=== PATIENT | female | born 1940 | race Caucasian/White ===

== ENCOUNTER 2020-03-15 13:07 | Inpatient (IN) | payer OTHER ==
--- OUTSIDE RECORDS SUMMARY | 2020-03-15 13:09 | XMS REPORT | Clinical Summary ---
:1940 Author Organization [facility] Address [address] [place] [address] Care Team Providers Name Role Phone Ivette Arreaga MD Primary Care Provider Allergies Active Allergy Reactions Severity Noted Date Comments Sulfasalazine 06/14/2011 Medications Medication Sig Dispensed Refills Start End Status Date Date ARMOUR THYROID 90 mg 0 Active tablet 016 NORVASC 2.5 mg tablet 0 Active 016 ezetimibe (ZETIA) 10 mg Zetia 10 mg 0 Active tablet tablet triamcinolone (KENALOG) triamcinolone 0 Active 0.1 % ointment acetonide 0.1 % topical ointment RESTASIS 0.05 % 0 Acti ve ophthalmic emulsion 016 aspirin (ECOTRIN) 325 MG Take 325 mg by 0 Active enteric coated tablet mouth daily. cranberry conc-ascorbic Take by mouth. 0 Active acid 4,200-20 mg capsule zinc 15 mg tablet Take 25 mg by 0 Active mouth. carboxymethylcellulose Apply to eye. 0 Active sodium (REFRESH OPHT) OTEZLA 30 mg TAKE 1 TABLET 90 tablet 0 Act pablo tabletIndications: BY MOUTH ONCE 020 Psoriatic arthritis (HCC) DAILY. meloxicam (MOBIC) 7.5 mg Take 7.5 mg by 1 Active tablet mouth daily. 019 estradiol (ESTRACE) 0.01 Estrace 0.01% 0 0 20/ Discontinued % (0.1 mg/gram) vaginal (0.1 mg/gram) 20 20 (Therapy cream vaginal cream comple chely) hydroxychloroquine TAKE 1 TABLET 90 tablet 1 11/27/2 05/30/ Discontinued (PLAQUENIL) 200 mg tablet DAILY 019 2019 (Reorder) OTEZLA 30 mg Take 30 mg by 90 tablet 1 2 continued tabletIndications: mouth daily. 2018 (Reorder) Psoriatic arthritis (HCC) hydroxychloroquine TAKE 1 TABLET 90 tablet 1 2 08/28/ (PLAQUENIL) 200 mg tablet DAILY 2018 OTEZLA 30 mg TAKE 1 TABLET 90 tablet 0 continued tabletIndications: BY MOUTH ONCE 2019 Psoriatic arthritis (HCC) DAILY. ([place]) OTEZLA 30 mg TAKE 1 TABLET 90 tablet 0 2 Dis continued tabletIndications: BY MOUTH ONCE 2019 Psoriatic arthritis (HCC) DAILY. hydroxychloroquine TAKE 1 TABLET 90 tablet 1 02/12/ (PLAQUENIL) 200 mg tablet DAILY 2019 Active Problems Problem Noted Date Thoracic aortic aneurysm without rupture 08/07/2019 Mixed hyperlipidemia 10/09/2018 Essential hypertension 10/09/2018 Aortic root dilatation 08/15/2018 Aortic valve disease 08/09/2017 Psoriatic arthritis 10/12/2016 Encounter for long-term (current) use of high-risk med ication 10/12/2016 Intradermal nevus 06/19/2014 Senile nevus of skin 06/13/2013 Seborrheic keratosis 06/13/2013 Basal cell carcinoma of face 10/17/2012 Ascending aortic aneurysm Overview: 4.6 x [address] 12/28/13 Primary Sjogren's syndrome Hypothyroid Encounters Date Type Specialty Care Team Description 11/15/2019 Refill Rheumatology Cameron Bui MD 10/25/2019 Office Visit Rheumatology Cameron Bui MD Psoria tic arthritis ([facility]) (Primary Dx); Encounter for l sherry-term (current) use of high-risk medication 10/02/2019 Refill Rheumatology Cameron Bui MD Psoria tic arthritis ([facility]) 10/02/2019 Refill Rheumatology Cameron Bui MD Psoria tic arthritis ([facility]) 08/07/2019 Office Visit Cardiology Ernestina Escudero MD [facility] (Primary Dx); Thoracic aortic aneurysm without rupture (HCC) 07/16/2019 Refill Rheumatology Cameron Bui MD Psoria tic arthritis ([facility]) 05/30/2019 Refill Rheumatology Cameron Bui MD after 03/15/2019 Family History Medical History Relation Name Comments Aortic dissection Father abdominal aort a Other Mother Choked Osteoarthritis Sister Relation Name Status Comments Father Mother Sister Alive Social History Tobacco Use Types Packs/Day Years Used Date Never Smoker Smokeless Tobacco: Never Used Alcohol Use Drinks/Week oz/Week Comments Yes Occasional Sex Assigned at Date Recorded Not on file Job Start Date Occupation Industry Not on file Not on file Not on file Travel History Travel Start Travel End No recent travel history available. Last Filed Vital Signs Vital Sign Reading Time Taken Comments Blood Pressure 153/83 10/25/2019 1:40 PM [employer] Pulse 81 10/25/2019 1:40 PM [employer] Temperature 37.1 C (98.7 F) 10/25/2019 1:40 PM [employer] Respiratory Rate 18 10/25/2019 1:40 PM [employer] Oxygen Saturation 97% 10/25/2019 1:40 PM [employer] Inhaled Oxygen Concentration - - Weight 59 kg (130 lb) 10/25/2019 1:40 PM [employer] Height 162.6 cm (5' 4") 10/25/2019 1:40 PM [employer] Body Mass Index 22.31 10/25/2019 1:40 PM [employer] Plan of Treatment Date Type Specialty Care Team Description 08/05/2020 Office Visit Cardiology Ernestina Escudero MD [address] [address] [phone] Health Maintenance Due Date Last Done Comments SHINGLES VACCINES (#1) 1988 65+ PNEUMOCOCCAL VACCINE (1 of 2 - PCV13) 2003 INFLUENZA VACCINE 04/05/2020 Procedures Procedure Name Priority Date/Time Associated Diagnosis Comme nts TTE COMPLETE, WO Routine 08/06/2019 12:55 PM Essential Resu lts for this CONTRAST, W DOPPLER [employer] hypertension procedure are in (26227) Aortic root the results dilatation (HCC) section. after 03/15/2019 Results Echocardiogram complete w contrast and 3D if needed (08/06/2019 12:55 PM [employer]) Specimen Narrative Performed At [facility] Echo cardiography Report Pat.Name: GRECIA DONNELLY Pat.ID: [id number] .Date: 08/06/2019 Refer.MD: ERNESTINA ESCUDERO MD Exam Time: 12:10:00 PM Study Type:Ro utine Echo Height: 65in Weight: 141lb BSA: 1.71 m2 Ag e: 1940,79Y Sex: FEMALE BP: 149/70 HR: 62 bpm Sonogrphr: LEOBARDO Knott FASE Pat. Stat.:Outpatient Room: [place] Study Status:Final Echo Event ID:[id number] Order ID: [id number] Reason for Study:Aortic root dilatation History / Clinical:Thor. Aneurysum, no m kip rup. Procedures: 2D Echo, Colorflow Doppler, Strain Race: C SUMMARY: LV EF is normal.Estimated EF is 60-64%. RV systolic function is normal. Aortic root diameter is mildly enlarged (3.8 cm at sinus of Valsalva); (Prior TTE dated 08/09/17-3.7 cm). Ascending aorta diameter is mildly enlar ged (4.1 cm). Mild aortic regurgitation. Diastolic dysfunction Grade I (Mild): Im paired relaxation with normal LV filling pressures. No significant change when compared to p rior TTE dated 08/09/17. FINDINGS: LV: LV size is normal. LV EF is normal. Overall wall motion is normal. Estimated EF is 60-64%. RV: RV size is normal. RV systo lic function is normal. LA: LA size is normal. RA: RA size is normal. AO: Aortic root diameter is mil dly enlarged (3.8 cm at sinus of Valsalva). Ascending aorta diameter i s mildly enlarged (4.1 cm). DOMINIQUE: No pericardial effusion. AV: Mild thickening of AV leafl ets. Mild aortic regurgitation. MV: Mild thickening of mitral l eaflets. A trace of mitral regurgitation. PV: No structural PV abnormalit ies noted. A trace of pulmonic regurgitation. TV: No structural TV abnormalit ies noted. Mild tricuspid regurgitation Murillo: Diastolic dysfunction Grade I (Mild): Impaired relaxation with normal LV filling pressures. Other: Estimated PA systolic pressu re is appx 26 mmHg, assuming a mean RAP of 5 mmHg. MEASUREMENTS: 2D Parasternal [place] Ao An 1.7 cm LVPWd 0.9 cm IVSd 1 cm LA Ds 3 cm LVIDd 4.1 cm Index 2.4 cm/m2 RWT 0.5 LVIDs 2.4 cm LV Mas s 124.3 g (87-129) LV%fs 41.5 % LVM Ind ex 72.7 g/m LA Sng Plane LA Area 16.9 cm (8.8-23.4) LA Vol 44.5 ml Index 26 ml/m2 LA LngAx 5.5 cm RA Sng Plane RA Vol 31.4 ml Index 18.4 ml/m2 RA LngAx 5.7 cm RA Area 15 cm (8.3-1 9.5) Aorta Ao Rtd 3.8 cm (1.7-3. 4) Ao Asc 4.1 cm (2.1-3. 4) LVOT Stroke Vol LVOT 1.6 cm LVOT LVOT Area 2 cm DOPPLER AV Pressure Half Time AV P1/2t 553 msec LVOT Stroke Vol LVOT TVI 29.5 cm LVOT CI 2.5 l/m/m LVOT SV 59.2 ml HR 71 bpm LVOT CO 4.2 l/min LVOT SVi 34.6 ml/m Signed 08/07/2019 11:51 AM Taylor Ambrosio MD Procedure Note Interface, Radiology Results In - 2018 11:51 AM [employer] [facility] Echocardiography Report Pat.Name: GRECIA DONNELLY Pat.I D: [id number] .Date: 08/06/2019 Refer .MD: ERNESTINA ESCUDERO MD Exam Time: 12:10:00 PM Study Type:Routine Echo Height: 65in Weigh t: 141lb BSA: 1.71 m2 Age: 9 1940,79Y Sex: FEMALE BP: 149/70 HR: 62 bpm Sonogrphr: LEOBARDO Knott FASE Pat. Stat.:Outpatient Room: [place] Study Status:Final Echo Event ID:[id number] Order ID: [id number] Reason for Study:Aortic root dilatation History / Clinical:Thor. Aneurysum, no jasmina shin ruhakan. Procedures: 2D Echo, Colorflow Doppler, Strain Race: C SUMMARY: LV EF is normal.Estimated EF is 60-64%. RV systolic function is normal. Aortic root diameter is mildly enlarged (3.8 cm at sinus of Valsalva); (Prior TTE dated 08/09/17-3.7 cm). Ascending aorta diameter is mildly enlar ged (4.1 cm). Mild aortic regurgitation. Diastolic dysfunction Grade I (Mild): Im paired relaxation with normal LV filling pressures. No significant change when compared to p rior TTE dated 08/09/17. FINDINGS: LV: LV size is normal. LV EF is no rmal. Overall wall motion is normal. Estimated EF is 60-64 %. RV: RV size is normal. RV systolic function is normal. LA: LA size is normal. RA: RA size is normal. AO: Aortic root diameter is mildly enlarged (3.8 cm at sinus of Valsalva). Ascending aorta di ameter is mildly enlarged (4.1 cm). DOMINIQUE: No pericardial effusion. AV: Mild thickening of AV leaflets . Mild aortic regurgitation. MV: Mild thickening of mitral leaf lets. A trace of mitral regurgitation. PV: No structural PV abnormalities noted. A trace of pulmonic regurgitation. TV: No structural TV abnormalities noted. Mild tricuspid regurgitation Murillo: Diastolic dysfunction Grade I (Mild): Impaired relaxation with normal LV filling pressu res. Other: Estimated PA systolic pressure is appx 26 mmHg, assuming a mean RAP of 5 mmHg. MEASUREMENTS: 2D Parasternal [place] Ao An 1.7 cm LVPW d 0.9 cm IVSd 1 cm LA D s 3 cm LVIDd 4.1 cm Inde x 2.4 cm/m2 RWT 0.5 LVIDs 2.4 cm LV M ass 124.3 g (87-129) LV%fs 41.5 % LVM Index 72.7 g/m LA Sng Plane LA Area 16.9 cm (8.8-23.4) L A Vol 44.5 ml Index 26 ml/m2 LA LngAx 5.5 cm RA Sng Plane RA Vol 31.4 ml Inde x 18.4 ml/m2 RA LngAx 5.7 cm RA Area 15 cm (8.3-19.5) Aorta Ao Rtd 3.8 cm (1.7-3.4) Ao Asc 4.1 cm (2.1-3.4) LVOT Stroke Vol LVOT 1.6 cm LVOT LVOT Area 2 cm DOPPLER AV Pressure Half Time AV P1/2t 553 msec LVOT Stroke Vol LVOT TVI 29.5 cm LVOT CI 2.5 l/m/m LVOT SV 59.2 ml HR 71 bpm LVOT CO 4.2 l/min LVOT SVi 34.6 ml/m Signed 08/07/2019 11:51 AM Taylor Ambrosio MD Performing Organization Address City/State/Zipcode Phone Number [facility] [id number] [place] [address] after 03/15/2019 Insurance Payer Benefit Plan / Subscriber ID Effective Dates Phone Addre ss Type Group HUMANA MEDICARE HUMANA MEDICARE xxxxxxxxx 2017-Present PPO PPO/PFFS/ERS MCR Advance Directives For more information, please contact: [phone] Type Date Recorded 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
[2020-03-15] MEDS ORDERED: NA CHLORIDE 0.9% 500 ML ONE (13:33)
[2020-03-15] MEDS ORDERED: MORPHINE 4 MG/ML SYR ONE ×2 (13:33→16:39)
[2020-03-15 13:41] LABS: Absolute Lymphocytes (CBC) 1.1 K/uL (0.7-4.9); Basophils % 0.4 % (0-1.3); Hematocrit 44.8 % (36.0-45.0); Lymphocytes % 8.9 % (15.3-44.8); MPV 8.7 fL (7.6-11.3); RBC Red Blood Cell Count 4.89 M/uL (3.86-4.86)
[2020-03-15 13:58] LABS: Bilirubin Direct 0.2 mg/dL (0-0.2); Bilirubin Total 1.1 mg/dL (0.2-1.0); Potassium 3.3 mmol/L (3.5-5.1); Protein, Total 7.4 g/dL (6.4-8.2)
--- NOTE | 2020-03-15 15:20 | RAD REPORT ---
EXAM DESCRIPTION: CT - Abdomen Pelvis W Contrast - 03/15/2020 2:42 pm CLINICAL HISTORY: ABD PAIN COMPARISON: Angio Aorta For Dissection dated 05/27/2017 TECHNIQUE: Biphasic, helical CT imaging of the abdomen and pelvis was performed following 100 ml non -ionic IV contrast. No oral contrast. All CT scans are performed using dose optimization technique as appropriate and may include automated exposure control or mA/KV adjustment according to patient size. FINDINGS: No suspicious findings in the lung bases. The liver, spleen, and pancreas show no suspicious findings. Gallbladder and biliary tree are also wi thout suspicious finding. Symmetric renal function is seen with no hydronephrosis or suspicious renal mass. No pyelonephritis o r acute parenchymal process. No bladder abnormalities. No adrenal abnormalities. Fluid filled, nondilated stomach seen. Dolan of the antrum are mildly thickened and edematous. This c an be antritis. Peristalsis of the antrum can mimic this antritis pattern. No duodenum abnormality s een. Proximal jejunum is normal. Patient has a dilated small bowel pattern seen in 2 components. Mult iple bowel loops are seen in the mid to lower left abdomen appearing to herniate through left-sided c olon mesentery. This closed-loop obstruction pattern creates multiple bowel loops in the lateral left mid abdomen with mild wall thickening or edema. A second area of dilated small bowel in the right lo wer quadrant is present. Etiology for this obstruction is uncertain. This could be adhesions or inter nal hernia. Distal ileum is decompressed. Mild to moderate stool volume seen in the right-side of the colon. Left-side of the colon is mostly decompressed. There is prominent sigmoid diverticulosis. Small amount of free intraperitoneal fluid is present. No pneumatosis or free air. No colon or small bowel focal mass lesions seen. No omental thickening or abnormal lymphadenopathy. No hernia, mass or bulky lymphadenopathy. Disc and bony degenerative changes are present. IMPRESSION: Small bowel obstruction pattern is evident with no free air, abscess or pneumatosis. Small bowel obstruction is seen in 2 components. There are several loops of small bowel that appear t o extend through mesenteric defect of the left-side of the colon creating a closed loop obstruction. The second more distal small bowel obstruction pattern is seen in the right lower quadrant with etiol ogy less certain. This could be from adhesions or from internal hernia. Dolan of the antrum are mildly prominent. This could be antritis or peristalsis artifact. Small quantity of ascites.
--- NOTE | 2020-03-15 16:08 | EDPHYS ---
Physician Documentation [facility] Name: Grecia Donnelly Age: 79 yrs Sex: Female : 1940 Arrival Date: 03/15/2020 Time: 13:11 Bed 8 Private MD: ED Physician Jhoan Rogers HPI: 03/15 14:58 This 79 yrs old Female presents to ER via EMS with complaints of Abdominal jr8 Pain. 14:58 The patient presents with abdominal pain in the lower abdomen. Onset: The jr8 symptoms/episode began/occurred acutely, today. The symptoms do not radiate. Associated signs and symptoms: Pertinent positives: nausea and vomiting, Pertinent negatives: diarrhea. The symptoms are described as sharp. Modifying factors: The symptoms are alleviated by nothing, the symptoms are aggravated by movement. Severity of pain: At its worst the pain was moderate in the emergency department the pain is unchanged. The patient has not experienced similar symptoms in the past. The patient has not recently seen a physician. Historical: - Allergies: 13:15 Sulfa (Sulfonamide Antibiotics); bp - PMHx: 13:15 Sjogren's Syndrome; Hypertension; ascending aortic aneurysm; Thyroid problem; High bp Cholesterol; - PSHx: 13:15 Heart stents; Hysterectomy; Thyroidectomy; bp - Immunization history:: Adult Immunizations up to date. - Social history:: Smoking status: Patient denies any tobacco usage or history of. ROS: 14:58 Eyes: Negative for injury, pain, redness, and discharge, ENT: Negative for injury, jr8 pain, and discharge, Neck: Negative for injury, pain, and swelling, Cardiovascular: Negative for chest pain, palpitations, and edema, Respiratory: Negative for shortness of breath, cough, wheezing, and pleuritic chest pain, Back: Negative for injury and pain, MS/Extremity: Negative for injury and deformity, Skin: Negative for injury, rash, and discoloration, Neuro: Negative for headache, weakness, numbness, tingling, and seizure. 14:58 Abdomen/GI: Positive for abdominal pain, nausea and vomiting, Negative for diarrhea, constipation, abdominal cramps, abdominal distension, anorexia, dysphagia, hematemesis, black/tarry stool, rectal pain, rectal bleeding, bowel incontinence, flatulence. Exam: 14:58 Eyes: Pupils equal round and reactive to light, extra-ocular motions intact. Lids and jr8 lashes normal. Conjunctiva and sclera are non-icteric and not injected. Cornea within normal limits. Periorbital areas with no swelling, redness, or edema. ENT: Nares patent. No nasal discharge, no septal abnormalities noted. Tympanic membranes are normal and external auditory canals are clear. Oropharynx with no redness, swelling, or masses, exudates, or evidence of obstruction, uvula midline. Mucous membranes moist. Neck: Trachea midline, no thyromegaly or masses palpated, and no cervical lymphadenopathy. Supple, full range of motion without nuchal rigidity, or vertebral point tenderness. No Meningismus. Cardiovascular: Regular rate and rhythm with a normal S1 and S2. No gallops, murmurs, or rubs. Normal PMI, no JVD. No pulse deficits. Respiratory: Lungs have equal breath sounds bilaterally, clear to auscultation and percussion. No rales, rhonchi or wheezes noted. No increased work of breathing, no retractions or nasal flaring. Back: No spinal tenderness. No costovertebral tenderness. Full range of motion. Skin: Warm, dry with normal turgor. Normal color with no rashes, no lesions, and no evidence of cellulitis. MS/ Extremity: Pulses equal, no cyanosis. Neurovascular intact. Full, normal range of motion. Neuro: Awake and alert, GCS 15, oriented to person, place, time, and situation. Cranial nerves II-XII grossly intact. Motor strength 5/5 in all extremities. Sensory grossly intact. Cerebellar exam normal. Normal gait. 14:58 Abdomen/GI: Inspection: abdomen appears normal, Bowel sounds: active, all quadrants, Palpation: soft, in all quadrants, mild abdominal tenderness, in the right lower quadrant, moderate abdominal tenderness, in the left lower quadrant, mass, is not appreciated, rebound tenderness, is not appreciated, voluntary guarding, is not appreciated, involuntary guarding, is not appreciated, no appreciated organomegaly, Indicators: McBurney's point is not tender, Graham's sign is negative, Rovsing's sign is negative, Liver: tenderness, is not appreciated. Vital Signs: 13:12 BP 126 / 70; Pulse 73; Resp 17; Temp 97.9; Pulse Ox 98% ; bp 13:33 BP 144 / 70; Pulse 77; Resp 16; Pulse Ox 100% ; bp 15:09 BP 125 / 57; Pulse 73; Resp 16; Pulse Ox 100% ; bp 16:00 BP 124 / 61; Pulse 72; Resp 17; Pulse Ox 95% ; bp 16:30 BP 117 / 62; Pulse 73; Resp 17; Pulse Ox 98% ; bp 17:30 BP 135 / 64; Pulse 73; Resp 16; Pulse Ox 98% ; bp 18:30 BP 113 / 52; Pulse 79; Resp 17; Pulse Ox 100% ; bp 19:50 BP 141 / 65; Pulse 18; Resp 20; Temp 98; Pulse Ox 98% ; ea Procedures: 16:25 G-tube placement: a 16 Welsh catheter was placed, by the ED physician, Chester FAJARDO. MDM: 13:13 Patient medically screened. 8 15:55 Data reviewed: vital signs, nurses notes, lab test result(s), radiologic studies, CT jr8 scan. Data interpreted: Pulse oximetry: on room air is 100 %. Interpretation: normal. Counseling: I had a detailed discussion with the patient and/or guardian regarding: the historical points, exam findings, and any diagnostic results supporting the discharge/admit diagnosis, lab results, radiology results, the need for further work-up and treatment in the hospital. Physician consultation: A Gibson CARDENAS was called at 15:55, was contacted at 15:55, regarding admission, to the medical/surgical unit. consult, patient's condition. 16:11 ED course: Dr. Hernandez consulted and will see patient in inpatient room . 03/15 13:13 Order name: Basic Metabolic Panel; Complete Time: 14:23 [facility] 03/15 13:13 Order name: CBC with Diff; Complete Time: 16:57 03/15 13:13 Order name: Hepatic Function; Complete Time: 14:23 [facility] 03/15 13:13 Order name: Lipase; Complete Time: 14:23 [facility] 03/15 14:22 Order name: CBC Smear Scan; Complete Time: 16:57 EDUT 03/15 14:23 Order name: CT Abd/Pelvis - IV Contrast Only; Complete Time: 15:27 03/15 16:26 Order name: XRAY Abdomen 1 View 03/15 17:47 Order name: RAD; Complete Time: 11:15 EDMS 03/15 13:13 Order name: IV Saline Lock; Complete Time: 13:21 [facility] 03/15 13:13 Order name: Labs collected and sent; Complete Time: 13:32 [facility] 03/15 15:51 Order name: NG Tube; Complete Time: 16:42 [facility] 03/15 16:32 Order name: CONS Physician Consult EDMS Administered Medications: 13:25 Drug: NS 0.9% 500 ml Route: IV; Rate: bolus; Site: right antecubital; bp 18:57 Follow up: IV Status: Completed infusion; IV Intake: 500ml bp 13:25 Drug: morphine 4 mg Route: IVP; Site: right antecubital; bp 16:03 Follow up: Response: No adverse reaction bp 16:15 Drug: Zosyn 3.375 grams Route: IVPB; Infused Over: 60 mins; Site: right antecubital; bp 18:57 Follow up: IV Status: Completed infusion; IV Intake: 100ml bp 16:15 Drug: NS 0.9% 1000 ml Route: IV; Rate: 100 ml/hr; Site: right antecubital; bp 18:57 Follow up: IV Status: Infusion continued upon admission bp 16:15 Drug: Potassium Chloride 20 mEq Route: IV; Rate: calculated rate; Site: right bp antecubital; 18:57 Follow up: IV Status: Completed infusion; IV Intake: 100ml bp 16:30 Drug: morphine 4 mg Route: IVP; Site: right antecubital; bp 18:56 Follow up: Response: Pain is decreased bp 16:30 Drug: Zofran (Ondansetron) 4 mg Route: IVP; Site: right antecubital; bp 18:56 Follow up: Response: Nausea is decreased bp Disposition: 03/16 07:32 Co-signature as Attending Physician, Jhoan Rogers MD. rn Disposition: 03/15/20 16:08 Hospitalization ordered by Renato Arreaga for Inpatient Admission. Preliminary diagnosis is Small Bowel Obstruction . - Bed requested for Telemetry/MedSurg (Inpatient). - Status is Inpatient Admission. ea - Condition is Stable. - Problem is new. - Symptoms have improved. Signatures: Dispatcher [employer] EDUT Chapin Massey PA PA jmm Sanford, Demi ds1 Jhoan Rogers MD MD rn Roszak, Josh, PA PA jr8 Neisha Coker, RN RN Vimal Ervin, RN RN Ritu Galo Corrections: (The following items were deleted from the chart) 03/15 18:22 16:08 Hospitalization Ordered by A Gibson CARDENAS for Inpatient Admission. Preliminary eb diagnosis is Small Bowel Obstruction . Bed requested for Telemetry/MedSurg (Inpatient). Status is Inpatient Admission. Condition is Stable. Problem is new. Symptoms have improved. jr8 19:46 18:22 03/15/2020 16:08 Hospitalization Ordered by A Gibson CARDENAS for Inpatient Admission. ds1 Preliminary diagnosis is Small Bowel Obstruction . Bed requested for Telemetry/MedSurg (Inpatient). Status is Inpatient Admission. Condition is Stable. Problem is new. Symptoms have improved. eb 19:54 19:46 03/15/2020 16:08 Hospitalization Ordered by A Gibson CARDENAS for Inpatient Admission. ea Preliminary diagnosis is Small Bowel Obstruction . Bed requested for Telemetry/MedSurg (Inpatient). Status is Inpatient Admission. Condition is Stable. Problem is new. Symptoms have improved. ds1
--- NOTE | 2020-03-15 16:08 | ER ---
Nurse's Notes [facility] Name: Grecia Donnelly Age: 79 yrs Sex: Female : 1940 Arrival Date: 03/15/2020 Time: 13:11 Bed 8 Private MD: Diagnosis: Small Bowel Obstruction Presentation: 03/15 13:12 Chief complaint: EMS states: BLQ PAIN WITH N/V SINCE 0600. Coronavirus screen: Proceed bp with normal triage. Ebola Screen: No symptoms or risks identified at this time. Initial Sepsis Screen: Does the patient meet any 2 criteria? No. Patient's initial sepsis screen is negative. Does the patient have a suspected source of infection? No. Patient's initial sepsis screen is negative. Risk Assessment: Do you want to hurt yourself or someone else? Patient reports no desire to harm self or others. Onset of symptoms was March 15, 2020 at 06:00. Care prior to arrival: Medication(s) given: zofran 4 mg, IV initiated. 20 GA, in the right antecubital area. 13:12 Method Of Arrival: EMS: [facility] bp 13:12 Acuity: SHABBIR 3 bp Triage Assessment: 13:15 General: Appears in no apparent distress. uncomfortable, Behavior is cooperative, bp appropriate for age, anxious. Pain: Complains of pain in abdomen. EENT: No deficits noted. Neuro: No deficits noted. Cardiovascular: No deficits noted. Respiratory: No deficits noted. GI: Abdomen is non-distended, Reports nausea, vomiting. : No signs and/or symptoms were reported regarding the genitourinary system. Derm: No deficits noted. Musculoskeletal: No deficits noted. Historical: - Allergies: 13:15 Sulfa (Sulfonamide Antibiotics); bp - PMHx: 13:15 Sjogren's Syndrome; Hypertension; ascending aortic aneurysm; Thyroid problem; High bp Cholesterol; - PSHx: 13:15 Heart stents; Hysterectomy; Thyroidectomy; bp - Immunization history:: Adult Immunizations up to date. - Social history:: Smoking status: Patient denies any tobacco usage or history of. Screenin:18 Abuse screen: Denies threats or abuse. Denies injuries from another. Nutritional bp screening: No deficits noted. Tuberculosis screening: No symptoms or risk factors identified. Fall Risk None identified. Assessment: 13:18 General: SEE TRIAGE NOTE. bp 14:45 Reassessment: PT RETURNED FROM CT. bp 16:15 Reassessment: PT INFORMED OF INTENT TO ADMIT AND NEED FOR NGT 2/2 SBO. bp 18:00 Reassessment: ADMIT IN PROCESS. NGT TO LIWS, PLACEMENT CONFIRMED. BED PENDING. bp 19:52 General: Report called to Neisha MEHTA on second floor. General: Appears in no apparent ea distress. Behavior is calm, cooperative, appropriate for age. Pain: Denies pain. Neuro: Level of Consciousness is awake, alert, obeys commands, Oriented to person, place, time, situation. Cardiovascular: Patient's skin is warm and dry. Respiratory: Airway is patent Respiratory effort is even, unlabored, Respiratory pattern is regular, symmetrical. Derm: Skin is dry, Skin is pale, Skin temperature is warm. Vital Signs: 13:12 BP 126 / 70; Pulse 73; Resp 17; Temp 97.9; Pulse Ox 98% ; bp 13:33 BP 144 / 70; Pulse 77; Resp 16; Pulse Ox 100% ; bp 15:09 BP 125 / 57; Pulse 73; Resp 16; Pulse Ox 100% ; bp 16:00 BP 124 / 61; Pulse 72; Resp 17; Pulse Ox 95% ; bp 16:30 BP 117 / 62; Pulse 73; Resp 17; Pulse Ox 98% ; bp 17:30 BP 135 / 64; Pulse 73; Resp 16; Pulse Ox 98% ; bp 18:30 BP 113 / 52; Pulse 79; Resp 17; Pulse Ox 100% ; bp 19:50 BP 141 / 65; Pulse 18; Resp 20; Temp 98; Pulse Ox 98% ; ea ED Course: 13:11 Patient arrived in ED. bp 13:12 Chester Dobbins PA is PHCP. jr8 13:13 Jhoan Rogers MD is Attending Physician. jr8 13:14 Triage completed. bp 13:15 Arm band placed on. bp 13:18 Patient has correct armband on for positive identification. Bed in low position. Call bp light in reach. Side rails up X2. 13:19 Maintain EMS IV. Dressing intact. Good blood return noted. Site clean \T\ dry. Gauge \T\ bp site: 20 G R AC. 13:32 Vimal Alberts, RN is Primary Nurse. bp 14:42 CT Abd/Pelvis - IV Contrast Only In Process Unspecified. EDMS 16:06 Renato Arreaga MD is Hospitalizing Provider. jr8 16:15 NGT: inserted 16 Fr. via right nare. verified placement of air over stomach, Placement bp verified by X-ray, to intermittent suction. Returned gastric contents. Patient tolerated well. 19:43 No provider procedures requiring assistance completed. Patient admitted, IV remains in ea place. Administered Medications: 13:25 Drug: NS 0.9% 500 ml Route: IV; Rate: bolus; Site: right antecubital; bp 18:57 Follow up: IV Status: Completed infusion; IV Intake: 500ml bp 13:25 Drug: morphine 4 mg Route: IVP; Site: right antecubital; bp 16:03 Follow up: Response: No adverse reaction bp 16:15 Drug: Zosyn 3.375 grams Route: IVPB; Infused Over: 60 mins; Site: right antecubital; bp 18:57 Follow up: IV Status: Completed infusion; IV Intake: 100ml bp 16:15 Drug: NS 0.9% 1000 ml Route: IV; Rate: 100 ml/hr; Site: right antecubital; bp 18:57 Follow up: IV Status: Infusion continued upon admission bp 16:15 Drug: Potassium Chloride 20 mEq Route: IV; Rate: calculated rate; Site: right bp antecubital; 18:57 Follow up: IV Status: Completed infusion; IV Intake: 100ml bp 16:30 Drug: morphine 4 mg Route: IVP; Site: right antecubital; bp 18:56 Follow up: Response: Pain is decreased bp 16:30 Drug: Zofran (Ondansetron) 4 mg Route: IVP; Site: right antecubital; bp 18:56 Follow up: Response: Nausea is decreased bp Intake: 18:57 IV: 100ml; Total: 100ml. bp 18:57 IV: 100ml; Total: 200ml. bp 18:57 IV: 500ml; Total: 700ml. bp Outcome: 16:08 Decision to Hospitalize by Provider. jr8 19:53 Admitted to Med/surg accompanied by tech, room 228, with chart, Report called to Neisha carrizales RN 19:53 Condition: stable 19:53 Instructed on the need for admit, Demonstrated understanding of instructions. 19:54 Patient left the ED. ea Signatures: Dispatcher [employer] Chester Jimenez PA PA jr8 Neisha Coker, RN RN Vimal Ervin RN RN bp
[2020-03-15] MEDS ORDERED: ONDANSETRON 4 MG/2 ML VIAL ONE (16:40)
[2020-03-15] MEDS ORDERED: PIPER/TAZO/NS 3.375gm 3.375 GM/100 ML BAG ONE (16:40)
[2020-03-15] MEDS ORDERED: NA CHLORIDE 0.9% 1,000 ML ONE (16:40)
[2020-03-15] MEDS ORDERED: KCL 20 MEQ/100 mL IVPB 20 MEQ/100 ML BAG IV ONE (16:40)
[2020-03-15 16:54] LABS: Blood Morphology Comment NOT SEEN (NOT SEEN); Platelet Estimate ADEQ; Urine White Blood Cell Casts OK
--- NOTE | 2020-03-15 17:47 | RAD REPORT ---
EXAM DESCRIPTION: RAD - Abdomen Single View - 03/15/2020 5:08 pm CLINICAL HISTORY: NG placement COMPARISON: Abdomen Pelvis W Contrast dated 03/15/2020 FINDINGS: NG tube has been placed. Tip and side port of the tubing is still in the distal esophagus. NG tube remains above the diaphragm. Dilated small bowel loops are seen in the right lower quadrant. This is the second area of suspected bowel obstruction detailed on the CT study. Focal density in th e left mid abdomen represents the multiple fluid-filled small bowel loops. No free air or pneumatosis . Contrast is present in the system from earlier CT study. No suspicious calcifications. No significant bony findings IMPRESSION: NG tube is in the distal esophagus above the diaphragm. Bowel obstruction changes are evident as detailed. No free air or pneumatosis.
[2020-03-15 20:25] VITALS: BMI 24.3
[2020-03-15] MEDS ORDERED: MORPHINE 4 MG/ML SYR IV PRN (20:51)
[2020-03-15] MEDS ORDERED: ONDANSETRON 4 MG/2 ML VIAL IV PRN (20:51)
[2020-03-15] MEDS: D5 0.45 NS 1,000 ML IV SCH (21:12)
[2020-03-16] MEDS ORDERED: PIPER/TAZO/NS 3.375gm 3.375 GM/100 ML BAG ONE ×2 (00:47→04:33)
[2020-03-16] MEDS: PIPER/TAZO/NS 3.375gm 3.375 GM/100 ML BAG IVPB SCH ×5 (01:07→23:58)
[2020-03-16 06:23] LABS: Absolute Lymphocytes (CBC) 1.6 K/uL (0.7-4.9); Basophils % 0.5 % (0-1.3); Hematocrit 50.2 % (36.0-45.0); Lymphocytes % 11.4 % (15.3-44.8); RBC Red Blood Cell Count 5.42 M/uL (3.86-4.86)
[2020-03-16 06:43] LABS: Potassium 4.5 mmol/L (3.5-5.1)
[2020-03-16] MEDS: D5 0.45 NS 1,000 ML IV SCH (08:56)
--- NOTE | 2020-03-16 09:41 | RAD REPORT ---
EXAM DESCRIPTION: RAD - Abdomen W Erect - 03/16/2020 7:00 am CLINICAL HISTORY: Abdomen pain. FINDINGS: No significant change in the appearance of mildly dilated mostly fluid filled small bowel with diminished air in the colon since March 15 CAT scan. This is compatible with a mechanical obstruction. Free air is not seen. Ascites is present Nasogastric tube within the stomach
[2020-03-16 09:50] LABS: Blood Morphology Comment NOT SEEN (NOT SEEN); Platelet Estimate ADEQ; Urine White Blood Cell Casts OK
[2020-03-16] MEDS ORDERED: SUCCINYLCHOLINE 20 MG/ML (10 ML) IV ONE (10:07)
[2020-03-16] MEDS ORDERED: propofoL 200 MG/20 ML VIAL IV ONE (10:16)
[2020-03-16] MEDS ORDERED: ROCURONIUM 50 MG/5 ML VIAL IV ONE (10:17)
[2020-03-16] MEDS ORDERED: LIDOCAINE 2% MPF 5 ML VIAL ONE (10:17)
[2020-03-16] MEDS ORDERED: FENTANYL CITR 250 MCG/5 ML ONE (10:17)
[2020-03-16] MEDS ORDERED: Ringers Lactate 1,000 ML IV ONE ×2 (10:35→12:37)
[2020-03-16] MEDS ORDERED: ONDANSETRON 4 MG/2 ML VIAL IV PRN ×2 (10:38→12:33)
[2020-03-16] MEDS ORDERED: EPHEDRINE SULF 50 MG/ML VIAL ONE (11:19)
[2020-03-16] MEDS ORDERED: Phenylephrine HCl 10 MG/ML 1 ML VIAL ONE (11:20)
[2020-03-16] MEDS ORDERED: KETOROLAC 30 MG/ML INJ ONE (11:22)
[2020-03-16] MEDS ORDERED: dexAMETHasone 10 MG/ML VIAL ONE (11:23)
[2020-03-16] MEDS ORDERED: GLYCOPYRROLATE 0.2 MG/ML SYR ONE (11:37)
[2020-03-16] MEDS ORDERED: NEOSTIGMINE 1 MG/ML -5 ML ONE (11:38)
--- NOTE | 2020-03-16 12:23 | P.OP ---
Dial Painter: Candy GUTIERREZ Preoperative diagnosis: SBO Postoperative diagnosis: same, with closed loop obstruction and appendicolith Primary procedure: Exp Lap, JUDY, SB resection and Appendectomy Anesthesia: General Estimated blood loss: min Specimen: Appy, SB--narrowed Findings: as above Complications: None Drain(s): Nasogastric, Urinary catheter Transferred to: Recovery Room Condition: Good
[2020-03-16] MEDS ORDERED: NALOXONE 0.4 MG/ML VIAL IV PRN (12:33)
[2020-03-16] MEDS ORDERED: HYDROMORPHONE HCL 1 MG/ML INJ IV PRN (12:33)
[2020-03-16] MEDS ORDERED: HYDROMORPHONE/PCA 10 MG/50 ML SYR IV PRN (12:33)
[2020-03-16] MEDS: HYDROMORPHONE HCL 1 MG/ML INJ ONE ×2 (13:00→13:06)
[2020-03-16] MEDS ORDERED: NA CHLORIDE 0.9% 500 ML IV ONE ×3 (13:50→18:22)
--- NOTE | 2020-03-16 15:00 | PREOPCON ---
Date of Consultation: 03/15/2020 Reason For Consultation: Small bowel obstruction. History Of Present Illness: Patient is an 79-year-old female, who presented to our hospital with dee roximately 2-day history of diffuse abdominal pain in the lower abdomen, mostly associated with nause a and vomiting. She has not had a bowel movement since Tuesday. She has not passed any gas. No sore throat, runny nose, cough, headaches, or dizziness. She had an NG tube placed yesterday with no rel ief. No chest pain. No fever or chills. Review of Systems: Otherwise unremarkable. Past Medical History: Significant for Sjogren syndrome, hypertension, ascending aortic aneurysm, thy roid issues, high cholesterol. Past Surgical History: Heart stents, hysterectomy, thyroidectomy. Allergies: SULFA. Social History: She does not smoke. Does not drink. Family History: Noncontributory. Physical Examination: Vital Signs: Stable. She is afebrile. General: She is awake, alert, and oriented x3. Head and Neck: Cranial 2 through 12 grossly within normal limits. No neck masses. No JVD. Throat clear. Neck supple. Chest: Clear. Heart: S1 and S2. Abdomen: Soft, slightly distended. Hypoactive bowel sounds. Diffuse tenderness with rebound and ri gidity in the left lower quadrant and the right lower quadrant. Extremities: Adequately perfused. Nontender. Neurologic: Nonfocal. Laboratory Data: White count was 12.8 yesterday, is 14,000 today. There is a left shift. Electroly robert reviewed. CT of the abdomen and abdominal x-ray reviewed with the radiologist. CT of the abdomen shows small b owel obstruction pattern is evident with no free air, abscess, or pneumatosis. Small bowel obstructi on is seen in 2 components. There were several loops of small bowel that appeared extending through the mesentery defect on the left side of the colon creating a closed loop obstruction. The second mo re distal small bowel obstruction pattern seen in the right lower quadrant with etiology less certain , and this could be from adhesions or from internal hernia. Dolan of the antrum are mildly prominent . This could be enteritis or ascites. She also had an abdominal x-ray done today, which showed no significant change in the appearance of the fluid-filled small bowel with diminished air in the colon. Assessment: Small bowel obstruction. Plan: Admit, n.p.o., IV fluid, IV antibiotic, NG tube, and then to the OR for exploratory laparotomy , possible bowel resection. Patient understands the risks, benefits, and alternatives, and agrees to procedure. Plan of care discussed with Dr. Arreaga as well. CAROLYNN/HERB Voice ID: [id number] Report ID: [id number]
[2020-03-16] MEDS: D5 0.9 NS 1,000 ML IV SCH ×3 (15:43→23:00)
[2020-03-16] MEDS ORDERED: CEFOXITIN 1 GM in NA CHLORIDE 0.9% 100 ML IVPB SCH (18:00)
[2020-03-16] MEDS ORDERED: TAZO ONE (18:03)
[2020-03-16] MEDS ORDERED: NS ONE (18:03)
[2020-03-16] MEDS ORDERED: PIPER ONE (18:03)
--- NOTE | 2020-03-16 20:06 | OP ---
Date of Procedure: 03/16/2020 Surgeon: Ron Hernandez MD Paper Twister Tender: MATT Cunningham. Preoperative Diagnosis: Small-bowel obstruction. Postoperative Diagnosis: Small-bowel obstruction with closed loop obstruction and appendicolith. Procedure Performed: Exploratory laparotomy, lysis of adhesions, small bowel resection and appendect eliud. Estimated Blood Loss: Minimal. Specimen: Appendix and small bowel, which was narrowed. Findings: As above. Anesthesia: General. Complications: None. Disposition: Patient tolerated the procedure in stable condition, taken to Recovery in good general condition. Procedure In Detail: The patient was brought to the OR, placed in supine position. General anesthes ia begun. The patient was prepped and draped in the usual sterile fashion. Then, a 20 blade was use d to make a generous midline incision above the umbilicus towards the pubis. Subcutaneous tissue div ided. Fascia was identified and divided and then peritoneal cavity entered. A lot of ascites encoun tered, which was aspirated and extensive adhesion was encountered and there was an enterotomy made in to the small bowel, which was closed with a stapling device. These were hard, cement-like adhesions in the lower abdomen. Approximately half an hour time was spend lysing all of the adhesions until th e entire small bowel was freed and this was examined, and patient had a close loop obstruction in the left side of the abdomen where the omentum had attached to the colon and the small bowel had gone th rough that window and twisted. This was all freed and the bowel itself was a little purplish, but wi th time it became more reddish and pinkish and it had motility. The area where we repaired the enter otomy was somewhat narrowed, so a small bowel resection was performed, approximately an inch of the b owel was removed and then standard GRAHAM stapling devices were used to create a new anastomosis, 3-0 si lk was used to take the tension off the anastomosis, and 3-0 chromic was used to close the mesenteric defect. The appendix was identified and it had appendicolith in it with narrow neck, therefore I de cided to go ahead and remove the appendix as well. The mesoappendix was divided between clamps and t ied with 2-0 silk and base of the appendix on the cecum was divided with a GRAHAM stapling device. Then a full exploratory laparotomy revealed normal GE junction, normal stomach, normal proximal jejunum. The area which was twisted in the close loop obstruction had come back to excellent viability with g ood motility and color had markedly improved and the area where the anastomosis was done was healthy as well and patient had some adhesions in the right lower quadrant as well, which were all lysed and all of these bowels were healthy. The ascending colon, transverse colon, and descending colon were w ithin normal limits. There was some hard stool present throughout the colon. There was no other genevieve dence of disease identified. Liver was within normal limit. Gallbladder, spleen were within normal limits. Subsequently, entire abdomen was irrigated. Effluent was clear. There was no evidence of b leeding or bowel injury appreciated. Subsequently, #2 nylon was used to close the fascia and then th e wound irrigated, bleeding controlled with cautery, and then julia used to close the skin. Steril e dressing was applied. Patient was awakened and taken to Recovery in good general condition. CAROLYNN/HERB Voice ID: [id number] Report ID: [id number]
--- NOTE | 2020-03-16 20:51 | HP ---
Date of Admission: 03/16/2020 Chief Complaint: Abdominal pain, nausea, vomiting. History Of Present Illness: This is an 79-year-old pleasant female patient, who was doing fine in her normal usual state of health until all of a sudden around 6 a.m. yesterday morning she woke up with abdominal pain, felt like her abdomen was very tight and had associated nausea, vomiting. Denies any fever, chills. Denies any constipation or diarrhea. She called her daughter, who went there to check on her and called ambulance and the patient was brought into the emergency room. The patient's daughter did call me yesterday, by the time when I was talking to her ambulance already had arrived at the patient's house to bring her to the hospital. The ER physician was notified. Evaluation was done in the emergency room and after evaluation, I did review all the test details with ER physician. Patient was admitted to the hospital with small bowel obstruction. Dr. Hernandez from General Surgery was consulted and I also communicated details with him. NG tube was placed. IV fluid, IV antibiotic, and pain medications started. This morning, when I saw her, she does not feel any better or worse. Her pain still continues to be same as yesterday. Pain is continuous, tends to get worse from time to time and pain medication tends to help her when she uses it. Allergies: TO SULFA AND TETANUS TOXOID. Medications: 1. Amlodipine 2.5 mg p.o. daily. 2. Otezla 30 mg p.o. daily. 3. Aspirin 325 mg p.o. daily. 4. Zetia 10 mg p.o. daily. 5. Hydroxychloroquine 200 mg p.o. b.i.d. 6. Meloxicam 7.5 mg p.o. daily. 7. Caroleen Thyroid 90 mg p.o. daily. Review of Systems: GI as mentioned above. All other systems reviewed and negative. Past Medical History: Significant for hypothyroidism, impaired fasting glucose, hypertension, mixed hyperlipidemia, right-sided carotid artery stenosis, diverticulosis, osteopenia. Past Surgical History: Cataract surgery, thyroidectomy, hysterectomy, reduction mammoplasty, abdominoplasty, and liposuction. Family History: Father , had a bladder cancer and abdominal aortic aneurysm. Otherwise, family history not pertinent. Social History: Negative for smoking and negative for alcohol use. Physical Examination: Vital Signs: Temperature 97.4, pulse 73, respiratory rate 18, blood pressure 139/64, oxygen saturation 97%, height 5 feet 5 inches, weight 146 pounds. General: Awake, alert, oriented, not in distress. HEENT: Head atraumatic, normocephalic. Conjunctivae nonerythematous. Sclerae white. Mouth, no thrush or edema noted. Ears/Nose, the patient has nasogastric tube present draining clear liquid. No evidence of blood in it. Neck: Supple. No JVD, lymph nodes, bruit, thyromegaly noted. Lungs: Bilateral good equal air entry. Clear to auscultation. No rhonchi. No rales. Heart: Normal heart sounds, no murmur or gallop. Abdomen: Abdomen is tender to touch in all the quadrants with worst tenderness in lower quadrants than upper. Bowel sounds present. No rebound tenderness. Abdomen appears mildly distended. There is no rebound tenderness, but presence of guarding. Extremities: No leg edema. No calf tenderness. Skin: No rash, ulcer, cellulitis. Lymphatics: No lymph node enlargement in neck, supraclavicular, infraclavicular region. Neuro: No focal neurological deficit. Chest: Unremarkable. External Genitalia: Deferred. Rectal: Deferred. Laboratory Data: White count yesterday 12.8, hemoglobin 15.1, platelets 247. Today, white count 14, hemoglobin 16.8, platelets 246. Yesterday, sodium 137, potassium 3.3, chloride 101, bicarb 21, BUN 16, creatinine 0.96, glucose 176. Liver function tests unremarkable. Lipase 112. This morning, sodium 138, potassium 4.5, chloride 106, bicarb 23, BUN 20, creatinine 1.28, glucose 166. CAT scan of abdomen and pelvis with contrast done in emergency room shows a small bowel obstruction present with no free air, abscess, or pneumatosis. Small bowel obstruction is seen in 2 components. Small quantity of ascites. Abdominal x-ray this morning continues to show mechanical small bowel obstruction. No free air. Impression: 1. Small bowel obstruction. 2. Hypokalemia. 3. Hypertension. 4. Mixed hyperlipidemia. 5. Impaired fasting glucose. 6. Hypothyroidism. 7. Diverticulosis. 8. Osteopenia. 9. Carotid artery stenosis, right side. Plan: Admit patient to hospital for further evaluation and management of this problem. Patient is appropriate for inpatient and is expected to spend 2 midnights in hospital. Patient was kept n.p.o. IV fluids, IV antibiotics Zosyn was started. Pain medication and nausea medication was ordered. SCD was ordered. I talked to Dr. Hernandez this morning again and he is planning to take the patient to surgery this morning considering she is not improving and details were discussed with the patient's daughter also. Depending on how she does during surgery and in recovery room, decision will be made if she can come back to her room on the medical floor or she will need to go to ICU for observation, but that decision will be made after surgery during recovery time. We will continue IV fluid. Repeat blood work tomorrow morning. Her home medications will be kept on hold at this point. Patient is at acceptable risk from planned surgery. FIDELIA/MODL Voice ID: [id number] LEN
[2020-03-16] MEDS ORDERED: NA CHLORIDE 0.9% 1,000 ML ONE (20:57)
[2020-03-16] MEDS ORDERED: D5 0.9 NS 1,000 ML IV SCH (22:19)
[2020-03-17] MEDS: PIPER/TAZO/NS 3.375gm 3.375 GM/100 ML BAG IVPB SCH ×3 (05:30→17:11)
[2020-03-17 05:59] LABS: Absolute Lymphocytes (CBC) 0.7 K/uL (0.7-4.9); Basophils % 0.6 % (0-1.3); Hematocrit 35.9 % (36.0-45.0); Lymphocytes % 5.6 % (15.3-44.8); MPV 8.8 fL (7.6-11.3); RBC Red Blood Cell Count 3.84 M/uL (3.86-4.86)
[2020-03-17 06:23] LABS: Magnesium 2.1 mg/dL (1.8-2.4); Phosphorus 2.1 mg/dL (2.5-4.9); Potassium 4.7 mmol/L (3.5-5.1)
[2020-03-17] MEDS: D5 0.9 NS 1,000 ML IV SCH (07:00)
[2020-03-17] MEDS ORDERED: POTASSIUM PHOS IN 0.9 % NACL 15 MMOL/250 ML BAG IV ONE ×2 (08:11→12:00)
[2020-03-17] MEDS: D5 0.45 NS 1,000 ML IV SCH ×2 (08:17→20:23)
[2020-03-17] MEDS: ENOXAPARIN 40 MG/0.4 ML SQ SCH (08:18)
--- NOTE | 2020-03-17 10:31 | PN ---
Date of Progress Note: 03/17/2020 Subjective: The patient is awake, alert, no complaints. Just minimal incisional pain. Objective: Vital Signs: Vitals are stable. She is afebrile. Urine output was marginal. Patient w as bolused with several saline boluses through the night. Urine output this morning is more than abril quate. Abdomen: Soft, nondistended, hypoactive bowel sounds. Laboratory Data: Her laboratory data reviewed. Assessment: Status post exploratory laparotomy, small-bowel resection, appendectomy for closed loop obstruction. Recommendations: Continue n.p.o. NG tube, IV fluids, IV antibiotics, incentive spirometry, DVT proph ylaxis, ambulation and continue Ronquillo for the time being as her urine output yesterday was marginal. Patient is clinically stable and doing well. /MODL Voice ID: [id number] Report ID: [id number]
--- NOTE | 2020-03-17 23:28 | PN ---
Date of Progress Note: 03/17/2020 History: Patient was seen this morning for followup. She was feeling better this morning. Denied a ny abdominal pain when I saw her, has NG tube in place. Early this morning, she did ambulate in the hallway and overall feels better compared to yesterday since her surgery, which was done yesterday. Physical Examination: Vital Signs: Reviewed. HEENT: Unremarkable. Lungs: Clear to auscultation. Heart: Heart sounds normal. Abdomen: Soft, bowel sounds absent. No guarding, rigidity. Extremities: No leg edema. Laboratory Data: White count 13.2, hemoglobin 12, platelets 180. Sodium 142, potassium 4.7, chlorid e 113, bicarb 24, BUN 19, creatinine 1, glucose 126, phosphorus 2.1, magnesium 2.1. Impression: 1.Small bowel obstruction, status post surgery. 2.Hypokalemia. 3.Hypertension. 4.Hypothyroidism. 5.Hypophosphatemia. Plan: We will continue current medications. Continue IV fluid, but change IV fluid to D5 half-rhiannon l saline without any potassium added. We will replace phosphorus per protocol. Continue current IV antibiotic, which is Zosyn. Repeat blood work tomorrow. Physical therapy to help ambulate the patie nt. Patient was advised to use her incentive spirometer every hour while awake and continue DVT prophylaxis per order. FIDELIA/MODL Voice ID: [id number] Report ID: [id number]
[2020-03-18] MEDS: PIPER/TAZO/NS 3.375gm 3.375 GM/100 ML BAG IVPB SCH ×4 (00:39→17:38)
[2020-03-18 04:51] LABS: Absolute Lymphocytes (CBC) 0.9 K/uL (0.7-4.9); Basophils % 0.7 % (0-1.3); Hematocrit 30.7 % (36.0-45.0); Lymphocytes % 13.9 % (15.3-44.8); MPV 8.5 fL (7.6-11.3); RBC Red Blood Cell Count 3.33 M/uL (3.86-4.86)
[2020-03-18 04:55] LABS: Magnesium 2.1 mg/dL (1.8-2.4); Potassium 3.3 mmol/L (3.5-5.1)
[2020-03-18] MEDS: D5 0.45 NS 1,000 ML IV SCH ×4 (04:55→22:15)
[2020-03-18 05:18] LABS: Blood Morphology Comment NOT SEEN (NOT SEEN); Platelet Estimate ADEQ; Urine White Blood Cell Casts OK
[2020-03-18] MEDS ORDERED: KCL 20 MEQ/100 mL IVPB 20 MEQ/100 ML BAG IV SCH ×2 (07:00→19:00)
[2020-03-18] MEDS ORDERED: POTASSIUM PHOS IN 0.9 % NACL 15 MMOL/250 ML BAG IV ONE (09:00)
[2020-03-18] MEDS: ENOXAPARIN 40 MG/0.4 ML SQ SCH (09:34)
--- NOTE | 2020-03-18 17:41 | PN ---
Date of Progress Note: 03/18/2020 Subjective: The patient is awake, alert, no complaint. NG tube has put out over 700 cc over the las t shift. Urine output is adequate. Laboratory Data: Reviewed. Objective: ABDOMEN: Soft. VITAL SIGNS: Stable, afebrile. ABDOMEN: Soft, nondistended. Hypoactive bowel sounds. Assessment: Status post small bowel resection and appendectomy with ileus. Recommendations: Continue n.p.o., NG tube, IV fluid, IV antibiotics. Encourage ambulation, DVT prop hylaxis, incentive spirometry. The patient is slowly clinically improving. Please note, we will discontinue the Ronquillo today. /MODL Voice ID: [id number] Report ID: [id number]
[2020-03-18] MEDS ORDERED: NA CHLORIDE 0.9% 0 ML ONE (20:44)
[2020-03-19] MEDS: PIPER/TAZO/NS 3.375gm 3.375 GM/100 ML BAG IVPB SCH ×5 (00:22→23:51)
--- NOTE | 2020-03-19 00:44 | PN ---
Date of Progress Note: 03/18/2020 Subjective: The patient was seen this morning for followup. No new complaints or problems reported by her, lying in bed, not in distress. She has not had a bowel movement and not passing any gas yet. She is ambulating well. NG tube in place. Ronquillo catheter was in place. No evidence of any bleeding. Objective: HEENT: Unremarkable. Lungs: Clear to auscultation. Heart: Sounds normal. Abdomen: Soft. Bowel sounds absent. Slight tenderness present in abdomen. No rebound tenderness. Extremities: No leg edema. Laboratory Data: White count 6.7, hemoglobin 10.7. Sodium 142, potassium 3.3, chloride 113, bicarb 25, BUN 12, creatinine 0.65, glucose 98. Phosphorus 1. Impression: 1. Small bowel obstruction, status post surgery. 2. Hypokalemia. 3. Hypophosphatemia. Plan: We will continue current medication. Continue NG tube to low intermittent suction. IV antibiotic. IV fluid. Keep the patient n.p.o. Ambulation was encouraged. Replace electrolytes per protocol. Repeat blood work tomorrow. I will see her tomorrow for followup. FIDELIA/MODL Voice ID: [id number] Report ID: [id number] LEN
[2020-03-19 05:49] LABS: Phosphorus 1.3 mg/dL (2.5-4.9); Potassium 3.3 mmol/L (3.5-5.1)
[2020-03-19] MEDS ORDERED: POTASSIUM PHOS IN 0.9 % NACL 15 MMOL/250 ML BAG IV ONE (09:00)
[2020-03-19] MEDS: ENOXAPARIN 40 MG/0.4 ML SQ SCH (11:05)
[2020-03-19] MEDS: D5 0.45 NS 1,000 ML IV SCH ×2 (11:05→20:00)
--- NOTE | 2020-03-19 11:51 | PN ---
Subjective: The patient had a liquid bowel movement last night. Passing a little bit gas. NG tube accidently came out this morning. Objective: Vital Signs: Stable. She is afebrile. Abdomen: Soft. She does have some bowel sounds. It is a little distended but there is no peritonit is. Dressing has minimal serosanguineous drainage on it. Laboratory Data: Reviewed. Electrolytes remain checked and corrected as needed. Assessment: Exploratory laparotomy, small-bowel resection, appendectomy for small-bowel obstruction. Recommendations: We will decide to have sips of clear liquids today without advanced diet today. On ce she has a better bowel function, we will advance the diet as tolerated. Continue antibiotics, n.p .o. IV fluids. Encourage ambulation and incentive spirometry. /MODL Voice ID: [id number] Report ID: [id number]
[2020-03-19] MEDS ORDERED: KCL 20 MEQ/100 mL IVPB 20 MEQ/100 ML BAG IV SCH (13:00)
[2020-03-19 18:41] LABS: Phosphorus 1.2 mg/dL (2.5-4.9); Potassium 3.4 mmol/L (3.5-5.1)
[2020-03-19] MEDS ORDERED: POTASS/SODIUM PHOSPHATE 1 PKT POWD.PACK PO ONE (20:00)
[2020-03-19] MEDS ORDERED: POTASSIUM 25 MEQ EFFERV TAB PO ONE (20:00)
[2020-03-19] MEDS: ENSURE CLEAR 200 ML CAN PO SCH (20:43)
--- NOTE | 2020-03-20 00:33 | PN ---
Date of Progress Note: 03/19/2020 Subjective: The patient was seen this morning for followup. No new complaints or problems reported by the patient. She was sitting in the chair. She did pass some gas per rectum last night. No bowel movement yet. Her NG tube was out when I saw her this morning. She was feeling overall well. Objective: Vital Signs: Reviewed. HEENT: Unremarkable. Lungs: Clear to auscultation. Heart: Sounds normal. Abdomen: Bowel sounds present. No guarding, rigidity, or distention. Extremities: No leg edema. Laboratory Data: Sodium 142, potassium 3.3, chloride 110, bicarb 26, glucose 101, phosphorus 1.3. Impression: 1. Hypokalemia. 2. Hypophosphatemia. 3. Small bowel obstruction. 4. Hypothyroidism. 5. Hypertension. Plan: We will continue current medication. Continue to replace electrolytes per protocol. We will repeat blood work tomorrow. Continue to follow with Dr. Hernandez. Possible discharge to go home in next 1 or 2 days. Details were discussed with her. FIDELIA/MODL Voice ID: [id number] Report ID: [id number] MTDD
[2020-03-20] MEDS: PIPER/TAZO/NS 3.375gm 3.375 GM/100 ML BAG IVPB SCH ×4 (05:12→23:58)
[2020-03-20] MEDS: D5 0.45 NS 1,000 ML IV SCH ×2 (05:12→08:00)
[2020-03-20 06:27] LABS: Absolute Lymphocytes (CBC) 0.9 K/uL (0.7-4.9); Basophils % 0.5 % (0-1.3); Hematocrit 33.2 % (36.0-45.0); Lymphocytes % 20.1 % (15.3-44.8); MPV 8.5 fL (7.6-11.3); RBC Red Blood Cell Count 3.63 M/uL (3.86-4.86)
[2020-03-20 06:36] LABS: BUN Blood Urea Nitrogen 5 mg/dL (7-18); Bicarbonate 26 mmol/L (21-32); Glucose Level 99 mg/dL (74-106); Magnesium 2.1 mg/dL (1.8-2.4); Phosphorus 1.7 mg/dL (2.5-4.9); Potassium 3.1 mmol/L (3.5-5.1); Sodium Level 141 mmol/L (136-145)
[2020-03-20] MEDS ORDERED: ACETAMINOPHEN 500 MG TAB PO PRN (07:56)
[2020-03-20] MEDS: ENOXAPARIN 40 MG/0.4 ML SQ SCH (08:34)
[2020-03-20] MEDS: AMLODIPINE 5 MG TAB PO SCH (08:34)
[2020-03-20] MEDS: THYROID 30 MG TAB PO SCH (08:34)
[2020-03-20] MEDS: ENSURE CLEAR 200 ML CAN PO SCH ×2 (08:35→21:43)
[2020-03-20] MEDS ORDERED: POTASSIUM CL SA 10 MEQ TAB PO ONE (09:00)
[2020-03-20] MEDS ORDERED: POTASSIUM PHOS IN 0.9 % NACL 15 MMOL/250 ML BAG IV ONE (09:00)
--- NOTE | 2020-03-20 11:28 | PN ---
Date of Progress Note: 03/20/2020 Subjective: The patient is awake, alert. No complaint. Vitals are stable. Afebrile. She is passi ng gas. No bowel movements. Abdomen is benign. Positive bowel sounds. Assessment: Status post small bowel resection, appendectomy for the small bowel obstruction. Recommendations: Continue IV antibiotics. We will advance diet to full liquids as she does not like the clear liquids, but maintain her on that until she had a bowel movement prior to advancing diet a ny further. Encourage ambulation and incentive spirometry. /MODL Voice ID: [id number] Report ID: [id number]
[2020-03-20] MEDS: KCL 20 MEQ/100 mL IVPB 20 MEQ/100 ML BAG IV SCH ×2 (21:42→23:26)
--- NOTE | 2020-03-21 01:13 | PN ---
Date of Progress Note: 03/20/2020 Subjective: The patient was seen this morning for followup. No new complaints or problems reported by her. Denies any nausea or vomiting. She is on clear liquid diet, which she is tolerating well. Objective: Vital Signs: Reviewed. HEENT: Unremarkable. Lungs: Clear to auscultation. Heart: Sounds normal. Abdomen: Soft. Bowel sounds normal. No guarding, rigidity. Minimum tenderness noted around surgic al incision site. Extremities: No leg edema. Laboratory Data: White count 4.3, hemoglobin 11.4, platelets 196. Sodium 141, potassium 3.1, chlori de 109, bicarb 26, BUN 5, creatinine 0.60, glucose 99, phosphorus 1.7. Impression: 1.Small bowel obstruction, status post surgery. 2.Hypokalemia. 3.Anemia. 4.Hypertension. 5.Hypothyroidism. Plan: We will resume her home medications including her amlodipine for hypertension and [place] Thyro id for her hypothyroidism. Continue clear liquid diet. We will continue to follow with rafaela Calle ho will make a decision about when to advance her diet. Ambulation was encouraged. Replace electrol ytes per protocol and I will see her tomorrow for followup, possible discharge to go home tomorrow. FIDELIA/MODL Voice ID: [id number] Report ID: [id number]
[2020-03-21] MEDS: D5 0.45 NS 1,000 ML IV SCH ×2 (03:16→09:37)
[2020-03-21] MEDS: PIPER/TAZO/NS 3.375gm 3.375 GM/100 ML BAG IVPB SCH ×2 (05:26→11:00)
[2020-03-21 06:04] LABS: Phosphorus 2.4 mg/dL (2.5-4.9); Potassium 3.7 mmol/L (3.5-5.1)
[2020-03-21] MEDS: ENOXAPARIN 40 MG/0.4 ML SQ SCH (07:52)
[2020-03-21] MEDS: THYROID 30 MG TAB PO SCH (07:52)
[2020-03-21] MEDS: ENSURE CLEAR 200 ML CAN PO SCH (07:53)
[2020-03-21 08:00] VITALS: O2SAT 96
[2020-03-21] MEDS ORDERED: KCL 20 MEQ/100 mL IVPB 20 MEQ/100 ML BAG IV SCH (08:00)
[2020-03-21] MEDS: AMLODIPINE 5 MG TAB PO SCH (08:09)
--- NOTE | 2020-03-21 10:26 | PN ---
Date of Progress Note: 03/21/2020 Subjective: The patient is awake and alert. No complaint. Tolerating full liquids. Passing gas. Objective: Vital Signs: Stable. Afebrile. Abdomen: Benign. Assessment: Status post small bowel resection, appendectomy for small bowel obstruction. Recommendations: We will advance the diet to regular diet. If she tolerates lunch, she could be dis charged home this afternoon. Follow up with me in 1 week. Plan of care discussed in detail with Dr. Arreaga. CAROLYNN/HERB Voice ID: [id number] Report ID: [id number]
[2020-03-21 13:19] VITALS: BP 126/62; TEMP 97.6
--- NOTE | 2020-03-22 03:47 | DS ---
Date of Discharge: 03/21/2020 Disposition: Discharged to go home. Discharge Medications And Instructions: 1. Continue all previous home medications except stop [place] Thyroid 90 mg and start 120 mg p.o. daily. 2. Take Augmentin 875 mg twice a day for 5 days. 3. Follow up at my office next week on Tuesday, which is 03/25/2020. 4. Follow up with Dr. Hernandez next week on , which is 03/27/2020. 5. Tylenol 500 mg p.o. 4 times a day as needed for pain. Physical Examination: HEENT: Unremarkable. Lungs: Clear to auscultation. Heart: Sounds normal. Abdomen: Soft. Bowel sounds normal. No guarding, rigidity, tenderness, or distention. Extremities: No leg edema. Laboratory Data: Upon admission, white count 12.8, hemoglobin 15.1, platelets 247. Last white count yesterday 4.3, hemoglobin 11.4, and platelet count of 196. Last chemistry today, sodium 141, potassium 3.7, chloride 111, bicarb 24, BUN 4, creatinine 0.68, glucose 105, phosphorus 2.4. Upon admission, sodium 137, potassium 3.3, chloride 101, bicarb 21, BUN 16, creatinine 0.96. Hospital Course: This is an 79-year-old female patient, admitted to the hospital with abdominal pain, nausea, vomiting. Please see dictated H and P for more information. After the patient was evaluated in the emergency room, she was admitted to the hospital with small bowel obstruction. The patient was kept n.p.o. IV fluid, IV antibiotic. NG tube to low intermittent suction was started and pain medication was ordered. She did not improve with conservative treatment and Dr. Hernandez evaluated her from General Surgery and took her to surgery next day after admission, and after surgery, the patient was brought to her room on the medical floor where she remained stable. She started ambulating well. NG tube was discontinued after couple of days and she was started on clear liquid diet, which was subsequently advanced as she tolerated, and today for lunchtime, she tolerated a regular diet. She did have bowel movement and does not require any stronger narcotic pain medication. Overall, she is feeling much better and was discharged to go home in stable condition with above- mentioned medication instructions. Final Diagnoses: 1. Small bowel obstruction with intraabdominal adhesions. 2. Hypokalemia. 3. Hypophosphatemia. 4. Hypertension. 5. Mixed hyperlipidemia. 6. Impaired fasting glucose. 7. Hypothyroidism. 8. Diverticulosis. 9. Osteopenia. 10. Carotid artery stenosis, right side. FIDELIA/MODL Voice ID: [id number] Report ID: [id number] MTDD
== END 2020-03-21 15:19 | disposition home or self-care (01) | DRG 331 ==
LOC: ER 13:07 → SUPCPDRO 13:07 → ERHOLD 16:31 → 2ND 19:48
PROVIDERS: ADMIT Internal Medicine; ATTEND Internal Medicine
PROC: 0DTJ0ZZ Resection of Appendix, Open Approach (ICD-10-PCS; 2020-03-16)
PROC: 0DN80ZZ Release Small Intestine, Open Approach (ICD-10-PCS; 2020-03-16)
PROC: 0DB80ZZ Excision of Small Intestine, Open Approach (ICD-10-PCS; principal; 2020-03-16 10:00)
DX: K56.50 Intestinal adhesions [bands], unspecified as to partial versus complete obstruction (principal); K38.1 Appendicular concretions; I10 Essential (primary) hypertension; D64.9 Anemia, unspecified; K56.7 Ileus, unspecified; E87.6 Hypokalemia; E83.39 Other disorders of phosphorus metabolism; E78.2 Mixed hyperlipidemia; E03.9 Hypothyroidism, unspecified; R73.01 Impaired fasting glucose; K57.90 Diverticulosis of intestine, part unspecified, without perforation or abscess without bleeding; M85.80 Other specified disorders of bone density and structure, unspecified site; I65.21 Occlusion and stenosis of right carotid artery; Z88.7 Allergy status to serum and vaccine; Z79.82 Long term (current) use of aspirin; Z79.899 Other long term (current) drug therapy; Z90.710 Acquired absence of both cervix and uterus; Z95.5 Presence of coronary angioplasty implant and graft; Z11.59 Encounter for screening for other viral diseases; Z88.1 Allergy status to other antibiotic agents
CPT/HCPCS: 36415; 74018; 74019; 74177; 80048; 80076; 83690; 83735; 84100; 84132; 85025; 88302; 88304; 88305; 88307; 96361; 96365; 96366; 96368; 96375; 97116; 97161; 97530; 99285; J0330; J1100; J1170; J1650; J2370; J2405; J2543; J2704; J2710; J3010; J3480; J7030; J7040; J7042; J7050; J7120; J7799; Q9967; U0002

== ENCOUNTER 2022-03-09 18:50 | Emergency (ER) | payer OTHER ==
[2022-03-09] MEDS ORDERED: TETANUS & DIPHTHERIA TOX,ADULT 0.5 ML VIAL ONE (19:28)
--- NOTE | 2022-03-09 19:53 | RAD REPORT ---
EXAM DESCRIPTION: CT - [id number] - 03/09/2022 7:44 pm CLINICAL HISTORY: Trauma, head and neck injury. fall COMPARISON: No comparisons TECHNIQUE: Axial 5 mm thick images of the head were obtained. Axial 2 mm thick images of the cervical spine were obtained with sagittal and coronal reconstruction images generated and reviewed. All CT scans are performed using dose optimization technique as appropriate and may include automated exposure control or mA/KV adjustment according to patient size. FINDINGS: CT HEAD WITHOUT CONTRAST: No acute hemorrhage, hydrocephalus or extra-axial collection is identified.Mild generalized brain atr ophy is present with mild periventricular and deep white matter chronic microvascular ischemic change s.No areas of brain edema or midline shift. The paranasal sinuses and mastoids are clear.The calvarium is intact. CT CERVICAL SPINE WITHOUT CONTRAST: No fracture or subluxation.Mild to moderate midcervical degenerative spondylosis.No prevertebral soft tissues swelling is identified. IMPRESSION: No acute intracranial or cervical spine findings. 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
[2022-03-09] MEDS ORDERED: LIDOCAINE 1% W/EPI 1:100,000 MDV 20 ML VIAL ONE (21:05)
--- NOTE | 2022-03-09 21:25 | ER ---
Nurse's Notes [facility] Name: Grecia Donnelly Age: 81 yrs Sex: Female : 1940 Arrival Date: 03/09/2022 Time: 18:52 Bed 4 Private MD: Diagnosis: Laceration without foreign body of scalp;Fall on same level, unspecified Presentation: 03/09 18:56 Chief complaint: Patient states: [facility] with ld1 my girlfriends. I tripped on the construction and fell. Pt hit back of head - laceration to back of head. Denies LOC. Coronavirus screen: At this time, the client does not indicate any symptoms associated with coronavirus-19. Ebola Screen: No symptoms or risks identified at this time. Initial Sepsis Screen: Does the patient meet any 2 criteria? No. Patient's initial sepsis screen is negative. Does the patient have a suspected source of infection? No. Patient's initial sepsis screen is negative. Risk Assessment: Do you want to hurt yourself or someone else? Patient reports no desire to harm self or others. Onset of symptoms was March 09, 2022. 18:56 Method Of Arrival: Wheelchair ld1 18:56 Acuity: SHABBIR 3 ld1 19:31 Care prior to arrival: None. Mechanism of Injury: Fall from standing position. Trauma aa9 event details: Injury occurred in the [facility], Injury occurred: in a recreational area. Injury occurred: March 09, 2022. Triage Assessment: 18:58 General: Appears in no apparent distress. comfortable, Behavior is calm, cooperative, ld1 appropriate for age. Pain: Complains of pain in scalp Pain does not radiate. Pain currently is 1 out of 10 on a pain scale. Quality of pain is described as throbbing. EENT: No signs and/or symptoms were reported regarding the EENT system. Neuro: Level of Consciousness is awake, alert, obeys commands, Oriented to person, place, time, situation. Cardiovascular: Capillary refill < 3 seconds Patient's skin is warm and dry. Respiratory: Airway is patent Respiratory effort is even, unlabored. GI: Abdomen is flat, non-distended. : No signs and/or symptoms were reported regarding the genitourinary system. Derm: No signs and/or symptoms reported regarding the dermatologic system. Trauma Activation: Alert Physician: ED Physician; Name: ; Notified At: ; Arrived At: Physician: General Surgeon; Name: ; Notified At: ; Arrived At: Physician: Radiology; Name: ; Notified At: ; Arrived At: Physician: Respiratory; Name: ; Notified At: ; Arrived At: Physician: Lab; Name: ; Notified At: ; Arrived At: Historical: - Allergies: 18:58 Sulfa (Sulfonamide Antibiotics); ld1 - PMHx: 18:58 ascending aortic aneurysm; High Cholesterol; Hypertension; Sjogren's Syndrome; Thyroid ld1 problem; - PSHx: 18:58 None; ld1 - Immunization history:: Adult Immunizations up to date, Client reports receiving the 2nd dose of the Covid vaccine. - Social history:: Smoking status: Patient denies any tobacco usage or history of. Patient uses alcohol, occasionally. - Immunization history: Last tetanus immunization: unknown. Screenin:40 Abuse screen: Denies threats or abuse. Denies injuries from another. Tuberculosis aa9 screening: No symptoms or risk factors identified. 19:40 Nutritional screening: No deficits noted. Fall Risk Fall in past 12 months (25 points). aa9 Total [place] Fall Scale indicates Low Risk Score (25-44 pts). Side Rails Up X 2 Frequent Obs/Assesments occuring. Primary Survey: 19:36 NO uncontrolled hemorrhage observed. A: The client is awake and alert. The airway is aa9 patent. Breathing/Chest: Spontaneous respiratory effort, equal unlabored respirations, breath sounds clear bilaterally, regular pattern, symmetrical chest rise and fall. Circulation: No external hemorrhage present. Regular and strong central pulse, skin warm/dry/normal color. Disability Pupils are equal, round, reactive to light and accommodation. Client is alert. Exposure/Environment: A warming method has been applied: A warm blanket has been provided to the patient. 21:35 Reassessment Alertness and Airway: Awake and alert. The airway is patent. Breathing: aa9 Spontaneous respiratory effort, equal unlabored respirations, breath sounds clear bilaterally, regular pattern with symmetrical chest rise and fall. Circulation: No external hemorrhage noted. Regular and strong central pulse, skin warm/dry/normal color. Disability: Pupils Pupils are equal, round, reactive to light and accomodation. Alert. Secondary Survey: 19:38 HEENT: Head Other abrasion to scalp. Gastrointestinal: No deficits noted. : No aa9 deficits noted. Musculoskeletal: No deficits noted. Assessment: 19:31 General: Appears in no apparent distress. comfortable, Behavior is calm, cooperative. aa9 Respiratory: Respiratory effort is even, unlabored. Injury Description: Abrasion sustained to scalp. 19:34 Derm: Wound noted scalp Wound is abrasion. aa9 Vital Signs: 18:56 BP 160 / 77; Pulse 82; Resp 18; Temp 98.7(TE); Pulse Ox 99% on R/A; Weight 58.97 kg; ld1 Height 5 ft. 6 in. (167.64 cm); Pain 0/10; 19:20 BP 153 / 85; Pulse 61; Resp 15 S; Pulse Ox 91% on R/A; aa9 20:45 BP 144 / 87; Pulse 68; Resp 18 S; Pulse Ox 96% on R/A; aa9 18:56 Body Mass Index 20.98 (58.97 kg, 167.64 cm) ld1 [place] Coma Score: 19:39 Eye Response: spontaneous(4). Verbal Response: oriented(5). Motor Response: obeys aa9 commands(6). Total: 15. Trauma Score (Adult): 19:39 Eye Response: spontaneous(1); Verbal Response: oriented(1); Motor Response: obeys aa9 commands(2); Systolic BP: > 89 mm Hg(4); Respiratory Rate: 10 to 29 per min(4); Smooth Score: 15; Trauma Score: 12 ED Course: 18:52 Patient arrived in ED. rg4 18:55 Fernando Simons PA is PHCP. cp 18:55 Barrera Purvis DO is Attending Physician. cp 18:58 Triage completed. ld1 18:58 Arm band placed on right wrist. ld1 19:06 Yasmani Landers, JANINE is Primary Nurse. as6 19:41 Patient has correct armband on for positive identification. Bed in low position. Call aa9 light in reach. Side rails up X2. Adult w/ patient. 19:41 Patient maintains SpO2 saturation greater than 95% on room air. aa9 19:41 Thermoregulation: warm blanket given to patient. aa9 19:45 CT Head C Spine In Process Unspecified. EDMS 21:34 Assist provider with laceration repair on scalp that was 2.5 cm. or less using julia. aa9 Set up tray. Performed by Fernando FAJARDO Patient tolerated well. Patient did not have IV access during this emergency room visit. Administered Medications: 19:30 Drug: Tetanus-Diphtheria Toxoid Adult 0.5 ml {Mft: [employer]. Exp: aa9 11/28/2023. Lot #: [id number]. } Route: IM; Site: left deltoid; Medication: 19:41 Vaccine Information Statement (VIS) provided today. Questions and/or concerns aa9 addressed. VIS edition date: April 10, 2021. Intake: 19:39 PO: 0ml; Total: 0ml. aa9 Outcome: 21:24 Discharge ordered by MD. cp 21:35 Discharged to home ambulatory, with significant other. aa9 21:35 Condition: stable 21:35 Discharge instructions given to patient, significant other, Instructed on discharge instructions, follow up and referral plans. wound care, Demonstrated understanding of instructions, follow-up care, wound care. 21:35 Patient's length of stay in the Emergency Department was greater than 2 hours. pending aa9 dcPatient's length of stay extended due to 21:37 Patient left the ED. aa9 Signatures: Dispatcher [employer] EDDC Fernando Simons PA PA cp Garcia, Rubi rg4 Maite Araujo, RN RN ld1 Yasmani Landers, JANINE RN as6 Geno Coreas RN RN aa9
--- NOTE | 2022-03-09 21:25 | EDPHYS ---
Physician Documentation [facility] Name: Grecia Donnelly Age: 81 yrs Sex: Female : 1940 Arrival Date: 03/09/2022 Time: 18:52 Bed 4 Private MD: ED Physician Barrera Purvis Historical: - Allergies: 03/09 18:58 Sulfa (Sulfonamide Antibiotics); ld1 - PMHx: 18:58 ascending aortic aneurysm; High Cholesterol; Hypertension; Sjogren's Syndrome; Thyroid ld1 problem; - PSHx: 18:58 None; ld1 - Immunization history:: Adult Immunizations up to date, Client reports receiving the 2nd dose of the Covid vaccine. - Social history:: Smoking status: Patient denies any tobacco usage or history of. Patient uses alcohol, occasionally. - Immunization history: Last tetanus immunization: unknown. Vital Signs: 18:56 BP 160 / 77; Pulse 82; Resp 18; Temp 98.7(TE); Pulse Ox 99% on R/A; Weight 58.97 kg; ld1 Height 5 ft. 6 in. (167.64 cm); Pain 0/10; 19:20 BP 153 / 85; Pulse 61; Resp 15 S; Pulse Ox 91% on R/A; aa9 20:45 BP 144 / 87; Pulse 68; Resp 18 S; Pulse Ox 96% on R/A; aa9 18:56 Body Mass Index 20.98 (58.97 kg, 167.64 cm) ld1 [place] Coma Score: 19:39 Eye Response: spontaneous(4). Verbal Response: oriented(5). Motor Response: obeys aa9 commands(6). Total: 15. Trauma Score (Adult): 19:39 Eye Response: spontaneous(1); Verbal Response: oriented(1); Motor Response: obeys aa9 commands(2); Systolic BP: > 89 mm Hg(4); Respiratory Rate: 10 to 29 per min(4); [place] Score: 15; Trauma Score: 12 MDM: 19:04 Patient medically screened. cp 03/09 19:05 Order name: CT Head C Spine; Complete Time: 20:17 cp 03/09 19:34 Order name: Wound Care: please clean and irrigate head wound; Complete Time: 21:34 cp 03/09 21:23 Order name: Wound dressing; Complete Time: 21:34 cp Administered Medications: 19:30 Drug: Tetanus-Diphtheria Toxoid Adult 0.5 ml {Gig Tender: [employer]. Exp: aa9 11/28/2023. Lot #: [id number]. } Route: IM; Site: left deltoid; Disposition Summary: 03/09/22 21:24 Discharge Ordered Location: Home cp Problem: new cp Symptoms: have improved cp Condition: Stable cp Diagnosis - Laceration without foreign body of scalp cp - Fall on same level, unspecified cp Followup: cp - With: Private Physician - When: 1 week - Reason: Staple/Suture removal Discharge Instructions: - Discharge Summary Sheet cp - Head Injury, Adult cp - Laceration Care, Adult cp - Sutures, Matt, or Adhesive Wound Closure cp Forms: - Medication Reconciliation Form cp - Thank You Letter cp - Antibiotic Education cp - Prescription Opioid Use cp Signatures: Dispatcher [employer] EDMS Fernando Simons PA PA cp Maite Araujo RN RN ld1 Geno Coreas RN RN aa9
[2022-03-09 22:35] VITALS: TEMP 98.7
[2022-03-09 22:38] VITALS: BP 144/87; O2SAT 96
== END 2022-03-09 21:37 | disposition home or self-care (01) ==
LOC: ER 18:50
PROC: 0JQ00ZZ Repair Scalp Subcutaneous Tissue and Fascia, Open Approach (ICD-10-PCS; principal; 2022-03-09)
DX: S01.01XA Laceration without foreign body of scalp, initial encounter (principal); W18.30XA Fall on same level, unspecified, initial encounter; I10 Essential (primary) hypertension; Z88.2 Allergy status to sulfonamides; Z23 Encounter for immunization
CPT/HCPCS: 70450; 72125; 90714

== ENCOUNTER 2023-04-27 18:04 | Inpatient (IN) | payer OTHER ==
--- OUTSIDE RECORDS SUMMARY | 2023-04-27 18:09 | XMS REPORT | Continuity of Care Document ---
:1940 Author Organization [facility] Address [address] [facility] [place] [address] Care Team Providers Name Role Phone Cleve Arreaga MD Primary Care Physician Jose CARDENAS, Cameron Nuñez Attending Clinician Waylon Burch Attending Clinician Bhavik Jaimes MA Attending Clinician Unavailable Jesus Alberto Rivera MA Attending Clinician Unavailable ERNESTINA ESCUDERO Attending Clinician Unavailable Payers Payer Name Policy Type Policy Number Effective Date Expiration Date S ource Problems Condition Condition Condition Status Onset Resolution Last Treating Co mments Source Name Details Category Date Date Treatment Clinician Date Aortic Aortic Disease Active 2019-09 Methodi root root 2-01 st enlargemen enlargemen 00:00: Ho spita t t 00 l 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 00:00: Hospit a without without 00 l rupture rupture Mixed Mixed Disease Recurre Methodi hyperlipid hyperlipid nce 2-04 st emia emia 00:00: Hospita 00 l Essential Essential Disease Recurre Me thodi hypertensi hypertensi nce 2-04 st on on 00:00: Hospita 00 l Aortic Aortic Disease Active 2017-09 Methodi root root 2-11 st dilatation dilatation 00:00: Ho spita 00 l Aortic Aortic Disease Active 2016-09 Methodi valve valve 2-05 st disease disease 00:00: Hospita 00 l Psoriatic Psoriatic Disease Recurre Me thodi arthritis arthritis nce 2-07 st 00:00: Hospita 00 l 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 4.6 [address] 12/28/13 Primary Primary Disease Recurre Method i Sjogren's Sjogren's nce st syndrome syndrome Hospit a l Hypothyroi Hypothyroi Disease Recurre Methodi d d nce st Hospita l Hypertensi Hypertens Problem Active 2023-01-10 Memoria ve pablo 11:45:48 l disorder, disorder, Herm monique systemic systemic arterial arterial (disorder) (disorder) Active Problem 01/10/2023 [facility] [place] Amnesia Amnesia Problem Active 2023-01-10 M emoria (finding) (finding) 11:45:48 l Active Iván Problem 01/10/2023 [facility] [place] Fall in Fall in Problem Active 2023-01-10 Me moria home home 11:45:48 l (finding) (finding) Herm monique Active Problem 01/10/2023 [facility] [place] Hyperlipid Hyperlipi Problem Active 2023-01-10 Memoria emia demia 11:45:48 l (disorder) (disorder) He rmann Active Problem 01/10/2023 [facility] [place] Allergies, Adverse Reactions, Alerts Allergy Allergy Status Severity Reaction(s) Onset Inactive Treating Comm ents Source Name Type Date Date Clinician Sulfasal Propensi Active 2010-09 Method i azine ty to 0-10 st adverse 00:00: Hospita reaction 00 l s to drug sulfa sulfa Active Memoria drugs drugs l [place] Family History Family Member Diagnosis Comments Start Date Stop Date Source Natural father Aortic dissection Met [facility] Natural mother Other [facility] Natural sister Osteoarthritis Method [facility] Social History Social Habit Start Date Stop Date Quantity Comments Source Gender identity [facility] Sexual orientation Method [facility] Alcohol intake 2023-03-01 2023-03-01 Current drinker Metho dist 00:00:00 00:00:00 of alcohol Hospital (finding) History of Social 2023-03-01 2023-03-[address] function 00:00:00 00:00:00 Hospital Tobacco use and 2022-08-31 2022-08-31 Smokeless tobacco Me thodist exposure 00:00:00 00:00:00 non-user Hospital Alcohol Comment 2017-10-10 2017-10-10 Occasional Yarsani 00:00:00 00:00:00 Hospital Sex Ass[birth year] At [birth year] JOHN Galvan 00:00:00 [facility]:00:00 [facility] Smoking Status Start Date Stop Date Source Tobacco smoking status [facility] Medications Ordered Filled Start Stop Current Ordering Indication Dosage Frequency Signature Comments Components Source Medication Medication Date Date Medication? Clinician (SIG) Name Name hydroxychlo 2022- Yes 200mg Q.5D TAKE 1 Me thodi roquine 7-25 10-[address] (PLAQUENIL) 00:00: 04:59 (200 MG Ho spita 200 mg 00 :00 TOTAL) BY l tablet MOUTH 2 (TWO) TIMES A DAY FOR 90 DAYS. triamcinolo 2022- No triamcinol Methodi ne 03-[address] (KENALOG) 15:50: 00:00 acetonide Ho spita 0.1 % 52 :00 0.1 % l ointment topical ointment losartan 2022- No 25mg QD Take 25 mg Me thodi (Cozaar) 25 03-[address] MG tablet 15:50: 00:00 daily. Hospi ta 45 :00 l levothyroxi 2022- No 75ug QD Take 1 Met hodi ne 03-01 tablet (75 st (SYNTHROID) 15:50: 00:00 mcg total) Hospita 75 mcg 37 :00 by mouth l tablet daily. hydroxychlo 2022- No 200mg Q.5D 1 tablet Methodi roquine 03-01 ([address] (PLAQUENIL) 15:50: 00:00 total) 2 H ospita 200 mg 34 :00 (two) l tablet times a day. amLODIPine 0 2022- No 5mg QD Take 5 mg M ethodi (NORVASC) 5 03-[address] mg tablet 13:48: 00:00 daily. Hospi ta 53 :00 l ezetimibe 2022-0 Yes Zetia 10 Meth israel (ZETIA) 10 - mg tablet st mg tablet 13:29: Hospita 24 l aspirin 81 2022-0 Yes 325mg QD Chew 325 Me thodi mg chewable - mg daily. st tablet 13:29: Hospita 24 l cranberry Yes Take by Metho di conc-ascorb 03-[address] ic acid 13:29: Hospita 4,200-20 mg 24 l capsule zinc 15 mg 0 Yes 25mg Take 25 mg M ethodi tablet 03-[address] 13:29: Hospita 24 l carboxymeth 0 Yes Apply to Me thodi ylcellulose 03-[address] sodium 13:29: Hospita (REFRESH 24 l OPHT) vit A/vit Yes Take by Metho di C/vit 03-[address] E/zinc/adan 13:29: Hospit a er (ICAPS 24 l AREDS ORAL) mv-min-FA-v Yes Take by Met hodi it 03-[address] K-lutein-ze 13:29: Hospit a axant 24 l (PreserVisi on AREDS 2 Plus MV) 200 mcg-15 mcg- 5 mg-1 mg capsule carboxymeth 0 Yes 1[drp] Q.[id number] 1 drop 3 Methodi ylcellulose 03-01 [id number] (three) st sodium 1 % 13:29: 3D times a Hosp sumit dropperette 24 day. l ,gel Restasis 0 Yes 1 drp, Memoria 0.05% - BOTH EYES, l ophthalmic 18:50: BID, # 30 He rmann emulsion 00 mL, 0 Refill(s) amLODIPine 0 Yes TAKE 1 Memor ia 5 mg oral 3-23 TABLET BY l tablet 18:50: MOUTH Iván 00 EVERY DAY losartan 25 Yes TAKE 1 Jaxson fern mg oral 3-23 TABLET BY l tablet 18:50: MOUTH Iván 00 EVERY DAY Restasis Yes 1 drp, Memoria 0.05% 3-23 BOTH EYES, l ophthalmic 18:50: BID, # 30 He rmann emulsion 00 mL, 0 Refill(s) amLODIPine Yes TAKE 1 Memor ia 5 mg oral 3-23 TABLET BY l tablet 18:50: MOUTH Iván 00 EVERY DAY losartan 25 Yes TAKE 1 Jaxson fern mg oral 3-23 TABLET BY l tablet 18:50: MOUTH Iván 00 EVERY DAY Paauilo Yes 180 mg = 1 Memor ia Thyroid 180 3-23 tab, PO, l mg oral 18:49: Daily, # Vipul n tablet 00 30 tab, 0 Refill(s) PreserVisio 0 Yes CHEW, BID, Memoria n AREDS 2 3-23 0 l 18:49: Refill(s) Iván 00 Paauilo 0 Yes 180 mg = 1 Memor ia Thyroid 180 3-23 tab, PO, l mg oral 18:49: Daily, # Vipul n tablet 00 30 tab, 0 Refill(s) PreserVisio 0 Yes CHEW, BID, Memoria n AREDS 2 3-23 0 l 18:49: Refill(s) [place] meloxicam 0 Yes 7.5 mg = 1 Me moria 7.5 mg oral 3-23 tab, PO, l tablet 18:48: Daily, # [place] 00 30 tab, 0 Refill(s) Caltrate 0 Yes PO, BID, 0 Mem oria 600 + D 3-23 Refill(s) l 18:48: [place] 00 meloxicam 0 Yes 7.5 mg = 1 Me moria 7.5 mg oral 3-23 tab, PO, l tablet 18:48: Daily, # [place] 00 30 tab, 0 Refill(s) Caltrate 2022-0 Yes PO, BID, 0 Mem oria 600 + D 3-23 Refill(s) l 18:48: Iván 00 aspirin 325 2023-0 Yes 325 mg = 1 Memoria mg oral 3-23 cap, PO, l capsule 18:47: Q4H, 0 Iván 00 Refill(s) Zinc 2023-0 Yes 12 mg, PO, Memoria 3-23 Daily, 0 l 18:47: Refill(s) [place] 00 aspirin 325 3-0 Yes 325 mg = 1 Memoria mg oral 3-23 cap, PO, l capsule 18:47: Q4H, 0 00 Refill(s) Zinc 2023-0 Yes 12 mg, PO, Memoria 3-23 Daily, 0 l 18:47: Refill(s) Synthroid 3-0 Yes 50 Memoria 50 mcg 3-23 microgram l (0.05 mg) 18:46: = 1 tab, Herm monique oral tablet 00 PO, Daily, # 30 tab, 0 Refill(s) Synthroid 3-0 Yes 50 Memoria 50 mcg 3-23 microgram l (0.05 mg) 18:46: = 1 tab, Herm monique oral tablet 00 PO, Daily, # 30 tab, 0 Refill(s) ezetimibe 2023-0 Yes 10 mg = 1 Mem oria 10 mg oral 3-23 tab, PO, l tablet 18:45: Daily, # [place] 00 30 tab, 0 Refill(s) hydroxychlo 2023-0 Yes 400 mg = 2 Memoria roquine 3-23 tab, PO, l sulfate 200 18:45: Daily, # He rmann mg oral 00 60 tab, 0 tablet Refill(s) ezetimibe 2023-0 Yes 10 mg = 1 Mem oria 10 mg oral 3-23 tab, PO, l tablet 18:45: Daily, # Iván 00 30 tab, 0 Refill(s) hydroxychlo 2023-0 Yes 400 mg = 2 Memoria roquine 3-23 tab, PO, l sulfate 200 18:45: Daily, # He rmann mg oral 00 60 tab, 0 tablet Refill(s) hydroxychlo 2021- 2023- No 200mg Q.5D Take 1 Me thodi roquine 2-29 07-[address] (PLAQUENIL) 00:00: 00:00 (200 mg Ho spita 200 mg 00 :00 total) by l tablet mouth 2 (two) times a day for 90 days. hydroxychlo 2022-1 2022- No TAKE 1 Met hodi roquine 2-28 12-[address] (PLAQUENIL) 00:00: 00:00 MOUTH Hosp sumit 200 mg 00 :00 TWICE A l tablet DAY ciclopirox 2021-09- No Apply to Me bucio (PENLAC) 8 0-31 06-[address] % solution 00:00: 00:00 daily, Hosp sumit 00 :00 remove on l day, repeat. hydrOXYchlo Yes TAKE 1 Meth israel roQUINE 1-[address] (PLAQUENIL) 00:00: MOUTH Hospi ta 200 mg 00 TWICE A l tablet DAY hydrOXYchlo 2021- No TAKE 1 Met hodi roQUINE 1-05 12-[address] (PLAQUENIL) 00:00: 00:00 MOUTH Hosp sumit 200 mg 00 :00 TWICE A l tablet DAY amLODIPine 2020-09 Yes 5mg QD Take 5 mg Me thodi (NORVASC) 5 0-[address] mg tablet 06:40: daily. Hospit a 15 l vit A/vit 2020-09 Yes Take by Metho di C/vit 0-[address] E/zinc/adan 06:40: Hospit a er (ICAPS 15 l AREDS ORAL) losartan 2020-09 Yes 25mg QD Take 25 mg Met hodi (Cozaar) 25 0-[address] MG tablet 06:40: daily. Hospit a 15 l hydrOXYchlo 2021- No 200mg Q.5D Take 1 Me thodi roQUINE 7-06 01-[address] (PLAQUENIL) 00:00: 00:00 (200 mg Ho spita 200 mg 00 :00 total) by l tablet mouth 2 (two) times a day. ciprofloxac 2022- No Apply to Licha rae in HCl 2-25 06-[address] (CILOXAN) 00:00: 00:00 daily Hospit a 0.3 % 00 :00 l ophthalmic solution ezetimibe 2019-09 Yes Zetia 10 Meth israel (ZETIA) 10 2-[address] mg tablet 11:14: Hospita 35 l triamcinolo 2019-09 Yes triamcinol Methodi ne 2-[address] (KENALOG) 11:14: acetonide Hos sarkis 0.1 % 35 0.1 % l ointment topical ointment aspirin 2019-09 Yes 325mg QD Take 325 Metho di (ECOTRIN) 2-[address] 325 MG 11:14: mouth Hospita enteric 35 daily. l coated tablet cranberry 2019-09 Yes Take by Metho di conc-ascorb 2-[address] ic acid 11:14: Hospita 4,200-20 mg 35 l capsule zinc 15 mg 2019-09 Yes 25mg Take 25 mg M ethodi tablet [address] 11:14: Hospita 35 l carboxymeth 2019-09 Yes Apply to Me thodi ylcellulose 10-[address] sodium 11:14: Hospita (REFRESH 35 l OPHT) RESTASIS 2015-09 Yes Methodi 0.05 % 2-29 st ophthalmic 00:00: Hospita emulsion 00 l RESTASIS 2015-09 Yes Methodi 0.05 % 2-29 st ophthalmic 00:00: Hospita emulsion 00 l ARMOUR Yes Methodi THYROID 90 9-30 st mg tablet 00:00: Hospita 00 l ARMOUR Yes Methodi THYROID 90 9-30 st mg tablet 00:00: Hospita 00 l Immunizations Ordered Immunization Filled Immunization Date Status Commen ts Source Name [place] [id number] 2020-11-03 Completed Methodis t MRNA VACCINATION 00:00:00 [place] [address] 2020-11-03 Completed Methodis t MRNA VACCINATION 00:00:00 [place] [address] 2020-10-06 Completed Methodis t MRNA VACCINATION 00:00:00 [place] [address] 2020-10-06 Completed Methodis t MRNA VACCINATION 00:00:00 Hospital Vital Signs Vital Name Observation Time Observation Value Comments Source Systolic blood 2023-03-01 18:19:00 136 mm[Hg] [facility] pressure Diastolic blood 2023-03-01 18:19:00 74 mm[Hg] [facility] pressure Heart rate 2023-03-01 18:19:00 61 /min [facility] Body height 2023-03-01 18:19:00 162.6 cm [facility] Body weight 2023-03-01 18:19:00 60.782 kg [facility] BMI 2023-03-01 18:19:00 23.00 kg/m2 [facility] Systolic (mm Hg) 2023-01-07 15:08:00 Jaxson rial [place] Diastolic (mm Hg) 2023-01-07 15:08:00 Mem orial Iván Heart Rate 2023-01-07 15:08:00 [facility] Iván Height 2023-01-07 15:08:00 5 [ft_i] [facility] [place] Weight 2023-01-07 15:08:00 [facility] Iván BMI Calculated 2023-01-07 15:08:00 Memori al Iván Systolic (mm Hg) 2022-11-25 18:14:00 Jaxson rial [place] Diastolic (mm Hg) 2022-11-25 18:14:00 Mem orial [place] Heart Rate 2022-11-25 18:14:00 [facility] Iván Height 2022-11-25 18:14:00 5 [ft_i] [facility] [place] Weight 2022-11-25 18:14:00 [facility] [place] BMI Calculated 2022-11-25 18:14:00 Memori al Iván Oxygen saturation in 2022-08-31 18:54:00 99 /min [facility] Arterial blood by Pulse oximetry Procedures Procedure Date / Time Performing Clinician Source Performed FERRITIN LEVEL 2023-03-01 [facility]AC[facility]23-03-01 [facility] RETICULOCYTE COUNT 2023-03-01 05:00:00 Cameron Garcia [facility] RHEUMATOID FACTOR 2022-09-02 13:59:00 Cameron Garcia [facility] SS-A AND SS-B ANTIBODY 2022-09-02 13:59:00 Cameron Garcia [facility] C3 COMPLEMENT COMPONENT 2022-09-02 13:59:00 Cameron Garcia [facility] CBC WITH PLATELET AND 2022-09-02 13:59:00 Cameron Garcia [facility] DIFFERENTIAL COMPREHENSIVE METABOLIC 2022-09-02 13:59:00 Cameron Garcia [facility] PANEL C-REACTIVE PROTEIN 2022-09-02 13:59:00 Cameron Garcia Justa [facility] SEDIMENTATION RATE 2022-09-02 13:59:00 [facility] URINALYSIS, AUTOMATED WITH 2022-09-02 13:59:00 [facility] MICROSCOPY ANTINUCLEAR ANTIBODIES (JHONNY) 2022-09-02 13:59:00 [facility] WITH REFLEX TO TITER AND PATTERN, IMMUNOFLUORESCENCE CYCLIC CITRULLINATED PEPTIDE 2022-09-02 13:59:00 [facility] AB, IGG TTE COMPLETE, W CONTRAST, W 2021-08-03 18:27:05 [facility] ([id number][facility] Hysterectomy<sup>1</sup> Judy Minor Plan of Care Planned Activity Planned Date Details Comments Source Future Scheduled 2023-04-06 65+ PNEUMOCOCCAL [facility] Test 03:27:26 VACCINE (1 - PCV) [code = 65+ PNEUMOCOCCAL VACCINE (1 - PCV)] Future Scheduled 2023-04-06 SHINGLES VACCINES (1 Met [facility] Test 03:27:26 of 2) [code = SHINGLES VACCINES (1 of 2)] Future Scheduled 2023-04-06 COVID-19 VACCINE (3 - Me [facility] Test 03:27:26 Moderna series) [code = COVID-19 VACCINE (3 - Moderna series)] Future Scheduled 2023-04-06 INFLUENZA VACCINE Method [facility] Test 03:27:26 [code = INFLUENZA VACCINE] Future Scheduled 2022-05-26 HEPATITIS B VACCINES [facility] Test 03:47:24 (1 of 3 - 3-dose series) [code = HEPATITIS B VACCINES (1 of 3 - 3-dose series)] Future Scheduled 2022-05-26 65+ PNEUMOCOCCAL [facility] Test 03:47:24 VACCINE (1 - PCV) [code = 65+ PNEUMOCOCCAL VACCINE (1 - PCV)] Future Scheduled 2022-05-26 SHINGLES VACCINES (1 Met [facility] Test 03:47:24 of 2) [code = SHINGLES VACCINES (1 of 2)] Future Scheduled 2022-05-26 COVID-19 VACCINE (3 - Me [facility] Test 03:47:24 Booster for Moderna series) [code = COVID-19 VACCINE (3 - Booster for Moderna series)] Future Scheduled 2022-05-26 INFLUENZA VACCINE [facility] Test 03:47:24 [code = INFLUENZA VACCINE] Encounters Start End Encounter Admission Attending Care Care Encounter Source Date/Time Date/Time Type Type Clinicians Facility Department ID 2023-07-13 2023-07-13 Outpatient EASTON MCCORMACK [id number] Memoria 09:15:00 09:15:00 02 madhuri Minor 2023-07-13 2023-07-13 Outpatient EASTON MCCORMACK [id number] Memoria 09:15[facility]00 [facility]15[facility]23-03-29 2023-03-29 Refill Jose, 1.2.840.1 [id number] Methodi 00:00:00 00:00:00 Cameron Nuñez 48942.1.1 214 s t 3.430.2.7 Hospit a .3.506320 .8 2023-03-01 2023-03-01 Office Jose 1.2.840.1 [id number] Methodi 13:30:00 15:31:07 Visit Cameron Nuñez 13190.1.1 380 s t 3.430.2.7 Hospit a .3.771998 .8 2023-03-01 2023-03-01 Outpatient JOSE, [facility] [id number] [place] 00:00:00 00:00:00 CAMERON [address] 2023-01-07 2023-01-08 Outpatient EASTON SORENSON [id number] Memoria 15:15:00 04:59:59 Neurology 01 madhuri Minor 2023-01-07 2023-01-08 Outpatient EASTON SORENSON [id number] Memoria 15:15:00 04:59:59 Neurology 01 madhuri Minor 2023-01-07 2023-01-07 Outpatient NUNO Burch [id number] 10:15:00 23:59:59 Waylon 01 Marcel 2023-01-07 2023-01-07 Outpatient EASTON MCCORMACK [id number] Memoria 10:15:00 10:15:00 01 madhuri Minor 2022-11-25 2022-11-26 Outpatient MHIE MNA [id number] Memoria 18:30:00 04:59:59 Neurology 00 l Ebenezer Minor 2022-11-25 2022-11-26 Outpatient MHIE MNA [id number] Memoria 18:30:00 04:59:59 Neurology 00 l Ebenezer Minor 2022-11-25 2022-11-25 Outpatient [facility] 656 [id number] 13:30:00 23:59:59 Waylon 00 Marcel 2022-11-25 2022-11-25 Outpatient MHIE MHIE [id number] Memoria 13:30:00 13:30:00 00 l Iván 2022-09-02 2022-09-02 Refill Fiona, 1.2.840.1 [id number] Methodi 00:00:00 00:00:[address] 3.430.2.7 Hospit a .3.016408 l .8 2022-09-01 2022-09-01 Refill Jose, 1.2.840.1 [id number] Methodi 00:00:00 00:00:00 Cameron Nuñez 45661.1.1 948 s t 3.430.2.7 Hospit a .3.139698 l .8 2022-08-31 2022-08-31 Office Garcia, 1.2.840.1 [id number] Methodi 13:00:00 13:30:00 Visit Cameron Nuñez 33995.1.1 968 s t 3.430.2.7 Hospit a .3.441901 l .8 2022-08-31 2022-08-31 Telephone Rivera, 1.2.840.1 [id number] Methodi 00:00:00 00:00:00 [address] 3.430.2.7 Hospit a .3.006808 l .8 2022-08-31 2022-08-31 Travel 1.2.840.1 1.2.951.473 [id number] Methodi 00:00:00 00:00:[address] 3.430.2.7 0.2.7.3.698 Ho spita .3.977090 084.8 l .8 2022-08-31 2022-08-31 Outpatient GARCIA, [facility] [id number] [place] 00:00:00 00:00:00 CAMERON [address] 2022-08-11 2022-08-11 Documentat Garcia, 1.2.840.1 [id number] Methodi 00:00:00 00:00:00 ion Cameron A. 91025.1.1 324 s t 3.430.2.7 Hospit a .3.573176 l .8 2022-03-04 2022-03-04 Refill Garcia, 1.2.840.1 [id number] Methodi 00:00:00 00:00:00 Cameron A. 05828.1.1 859 s t 3.430.2.7 Hospit a .3.570049 l .8 2021-09-09 2021-09-09 Refill Garcia, 1.2.840.1 [id number] Methodi 00:00:00 00:00:00 Cameron A. 00324.1.1 579 s t 3.430.2.7 Hospit a .3.221410 l .8 2021-08-03 2021-08-03 Travel 1.2.840.1 1.2.035.748 [id number] Methodi 00:00:00 00:00:[address] 3.430.2.7 0.2.7.3.698 Ho spita .3.789938 084.8 l .8 2021-08-03 2021-08-03 Outpatient ESCUDERO, [facility] [id number] [place] 00:00:00 00:00:00 ERNESTINA [address] 2021-06-25 2021-06-25 Outpatient JOSE, [facility] [id number] [place] 00:00:00 00:00:00 CAMERON [address] 2020-08-05 2020-08-05 Outpatient [facility], [facility] [id number] [place] 00:00:00 00:00:00 ERNESTINA [address] Results Test Description Test Time Test Comments Results Result Comments Source Ferritin level 2023-03-02 14:55:00 Test Item Value Reference Range Interpretation Comme nts Ferritin level (test code = 2276-4) 57 ng/mL 16-288 RAC (test code = RAC) Performing Organization Information: Site ID: [facility] Address: [address] [place] [address] Director: Nicholas Live [facility] [id number] 14:55:00 Test Item Value Reference Range Interpretation Comments Retic count, manual 2.7 % (test code = 63828-1) Retic absolute, auto [id number] See_Comment H [Autom ated (test code = message] The 58439-9) system which generated this result transmitted reference range : 20,000 - 80,000 cells/uL. The reference range was not used to interpret this result as normal/abnormal . RAC (test code = Performing RAC) Organization Information: Site ID: [facility]: [facility] Address: [address] [place] [address] Director: Nicholas Live Lab Interpretation Abnormal (test code = 18930-6) [facility] iron binding [id number] 14:55:00 Test Item Value Reference Range Interpretation Comments Iron level (test 73 See_Comment [Automated code = 2498-4) message] The system which generated this result transmit chely reference range : 45 - 160 mcg/dL . The reference range was not u sed to interpret th is result as normal/abnormal . Iron binding 324 See_Comment [Automated capacity (test message] The code = 2500-7) system which generated this result transmit chely reference range : 250 - 450 mcg/d L (calc). The reference range was not used to interpret this result as normal/abnormal . Iron saturation 23 See_Comment [Automated (test code = message] The 2502-3) system which generated this result transmit chely reference range : 16 - 45 % (calc ). The reference range was not u sed to interpret th is result as normal/abnormal . RAC (test code = Performing RAC) Organization Information: Site ID: [facility] Name: [facility] Address: [address] [place] [id number] Director: Nicholas [facility]Grant [facility] H[id number] 13:29:00 Test Item Value Reference Range Interpretation Comments Vitamin B12 Lvl (test code = Vitamin [phone] B12 Lvl) [id number] 13:29:00 Test Item Value Reference Range Interpretation Comments Sed Rate (test code = Sed Rate) 2 [id number] 13:29:00 Test Item Value Reference Range Interpretation Comments Vitamin B12 Lvl (test code = Vitamin [phone] B12 Lvl) [facility] [id number] 13:29:00 Test Item Value Reference Range Interpretation Comments Sed Rate (test code = Sed Rate) 2 [facility] [id number] 23:28:00 Test Item Value Reference Range Interpretation Comments Glucose (test code 94 mg/dL 65-99 Fasting = 2345-7) reference interval BUN (test code = 13 mg/dL 7-25 3094-0) Creatinine (test 0.86 mg/dL 0.60-0.95 code = 2160-0) eGFR (test code = 67 See_Comment The eGFR i s based 00977-1) on the CKD-EPI 2020 equation. To calculate the n ew eGFR from a previous Creatinine or Cystatin Cresul t, go to https://www.kid ne y.org/profcharli na bg/kdoqi/gfr%5F ca lculator [Automated message] The system which generated this result transmitted reference range : > OR = 60 mL/min/1.73m2. The reference range was not used to interpr et this result as normal/abnormal . BUN/creatinine NOT APPLICABLE See_Comment [Automated ratio (test code = message] The 3097-3) system which generated this result transmitted reference range : 6 - 22 (calc). The reference range was not used to interpr et this result as normal/abnormal . Sodium (test code 140 mmol/L 135-146 = 2951-2) Potassium (test 4.0 mmol/L 3.5-5.3 code = 2823-3) Chloride (test 105 mmol/L 98-110 code = 2075-0) CO2 (test code = 26 mmol/L 20-32 2028-05) Calcium (test code 9.0 mg/dL 8.6-10.4 = 23693-2) Protein (test code 6.5 g/dL 6.1-8.1 = 2885-2) Albumin, S (test 4.1 g/dL 3.6-5.1 code = 1751-7) Globulin, total 2.4 See_Comment [Automated (test code = message] The 59871-3) system which generated this result transmitted reference range : 1.9 - 3.7 g/dL (calc). The reference range was not used to interpret this result as normal/abnormal . Albumin/globulin 1.7 See_Comment [Automated ratio (test code = message] The 0) system which generated this result transmitted reference range : 1.0 - 2.5 (calc ). The reference range was not used to interpr et this result as normal/abnormal . Total bilirubin 1.1 mg/dL 0.2-1.2 (test code = 1974-) Alkaline 64 U/L 37-153 phosphatase (test code = 6768-6) AST (test code = 26 U/L 10-35 1919-8) ALT (test code = 15 U/L -1741-6) JEAN PAUL (test code = FASTING:YES JEAN PAUL) FASTING: YES RAC (test code = Performing RAC) Organization Information: Site ID: RGA [facility] Address: [address] [place] [id number] Director: Nicholas Live [facility] with reflex to titer and pattern, immunofluorescence 2022-09-03 23:28:00 Test Item Value Reference Interpretation Comments Range JHONNY Screen (test POSITIVE NEGATIVE A JHONNY IFA is a first code = 22758-0) line screen for detecting thepr esence of up to approximately 1 50 autoantibodies invarious autoi mmune diseases. A pos itive JHONNY IFA resulti s suggestive of autoimmune dise ase and reflexes to titer and pattern. Fu rther laboratory test ing may beconsidere d if clinically ariane cated. For additional information, pl ease refer tohttp://educat ion.CardioLogs/fa q/ANE089(This l ink is being provided for informational/e ducati onal purposes o nly.) JHONNY titer (test 1:1280 titer H Reference R adrienne code = 5048-4) <1:40 Negativ e 1:40-1:80 Low Antibody Level >1:80 Elevated Antibo dy Level JHONNY pattern (test Nuclear, A Centromere pattern is code = 88822-6) Centromere associated w ith limited cutaneoussystem ic sclerosis, AZUL T (Calcinosis, Raynaud's,Esoph ageal dysmotility, Sclerodactyly, Telangiectasia) ,prima ry biliary cholangitis (PB C), and other autoimmunedisea ses. AC-3: Centromer e International Consensus on AN A Patterns(https: //doi. org/10.1515/ccl -0052) JEAN PAUL (test code = FASTING:YES JEAN PAUL) FASTING: YES RAC (test code = Performing RAC) Organization Information: Site ID: IG Name: [facility] Address: [address] [place] [address] Director: Dr. Nicholas Live Lab Interpretation Abnormal (test code = 64667-2) [facility] [id number] 23:28:00 Test Item Value Reference Range Interpretation Comments CRP (test code = 10.9 mg/L See_Comment H [Automated 1987-) message] The system which generated this result transmitted reference range : <=8.0. The reference range was not used to interpret this result as normal/abnormal . JEAN PAUL (test code = FASTING:YES JEAN PAUL) FASTING: YES RAC (test code = Performing RAC) Organization Information: Site ID: RGA Name: [facility] Address: [address] [place] [address] Director: Nicholas Live Lab Interpretation Abnormal (test code = 10374-4) [facility] complement [id number] 23:28:00 Test Item Value Reference Range Interpretation Comments C4 complement 6 mg/dL Reference Rang e<1 (test code = year: Not 4498-2) established1-14 years: 13-15- 80 years: 15-57> o r = 81 years Not established JEAN PAUL (test code = FASTING:YES JEAN PAUL) FASTING: YES RAC (test code = Performing RAC) Organization Information: Site ID: [facility] Name: [facility] Address: [address] [place] [id number] Director: Nicholas [place] [id number] complement [id number] 23:28:00 Test Item Value Reference Range Interpretation Comments C3 complement 64 mg/dL Reference Rang e<1 (test code = year: Not 4485-9) established1-14 years: 82-06927 -80 years: 83-193> or = 79 years Not established JEAN PAUL (test code = FASTING:YES JEAN PAUL) FASTING: YES RAC (test code = Performing RAC) Organization Information: Site ID: [facility] Name: [facility] Address: [address] [place] [address] Director: [place] [facility]umat[facility] [id number] 23:28:00 Test Item Value Reference Range Interpretation Comments Rheumatoid factor 100 See_Comment H [Automate d (test code = message] The 11858-2) system which generated this result transmitted reference range : <14 IU/mL. The reference range was not used to interpret this result as normal/abnormal . JEAN PAUL (test code = FASTING:YES JEAN PAUL) FASTING: YES RAC (test code = Performing RAC) Organization Information: Site ID: FINN [facility] Address: [address] [place] [phone] Director: Nicholas Live Lab Interpretation Abnormal (test code = 24078-8) [facility] with platelet and [id number] 23:28:00 Test Item Value Reference Range Interpretation Comments WBC (test code = 3.5 See_Comment L [Automated 8921-2) message] The system which generated this result transmitted reference range : 3.8 - 10.8 Thousand/uL. Th e reference range was not used to interpret this result as normal/abnormal . RBC (test code = 3.72 See_Comment L [Automated 039-8) message] The system which generated this result transmitted reference range : 3.80 - 5.10 Million/uL. The reference range was not used to interpret this result as normal/abnormal . HGB (test code = 10.7 g/dL 11.7-15.5 L 718-7) HCT (test code = 32.3 % 35.0-45.0 L 4544-3) MCV (test code = 86.8 fL 80.0-100.0 787-2) MCH (test code = 28.8 pg 27.0-33.0 785-6) MCHC (test code = 33.1 g/dL 32.0-36.0 786-4) RDW (test code = 17.1 % 11.0-15.0 H 788-0) Platelet count (test 134 See_Comment L [Autom ated code = 777-3) message] The system which generated this result transmitted reference range : 140 - 400 Thousand/uL. Th e reference range was not used to interpret this result as normal/abnormal . MPV (test code = 11.5 fL 7.5-12.5 776-5) Neutrophils, 1582 See_Comment [Automated absolute (test code message] The = 751-8) system which generated this result transmitted reference range : 1,500 - 7,800 cells/uL. The reference range was not used to interpret this result as normal/abnormal . Lymphocytes, 1351 See_Comment [Automated absolute (test code message] The = 731-0) system which generated this result transmitted reference range : 850 - 3,900 cells/uL. The reference range was not used to interpret this result as normal/abnormal . Monocytes, absolute 557 See_Comment [Automa chely (test code = 742-7) message] The system which generated this result transmitted reference range : 200 - 950 cells/uL. The reference range was not used to interpret this result as normal/abnormal . Eosinophils, 0 See_Comment L [Automated absolute (test code message] The = 711-2) system which generated this result transmitted reference range : 15 - 500 cells/uL. The reference range was not used to interpret this result as normal/abnormal . Basophils, absolute 11 See_Comment [Automa chely (test code = 704-7) message] The system which generated this result transmitted reference range : 0 - 200 cells/u L. The reference range was not used to interpr et this result as normal/abnormal . Neutrophils (test 45.2 % code = 770-8) Lymphocytes (test 38.6 % code = 736-9) Monocytes (test code 15.9 % = 5905-5) Eosinophils (test 0.0 % code = 713-8) Basophils + RC (test 0.3 % code = 706-2) JEAN PAUL (test code = FASTING:YES JEAN PAUL) FASTING: YES RAC (test code = Performing RAC) Organization Information: Site ID: [facility] Name: [facility] Lab Address: [address] [place] [address] Director: Nicholas Live Lab Interpretation Abnormal (test code = 91110-8) [facility] [id number] 23:28:00 Test Item Value Reference Range Interpretation Comments Sedimentation rate 14 mm/h See_Comment [Automat ed (test code = 4537-7) message ] The system which generated this result transmitted reference range : < OR = 30. The reference range was not used to interpret this result as normal/abnormal . JEAN PAUL (test code = FASTING:YES JEAN PAUL) FASTING: YES RAC (test code = Performing RAC) Organization Information: Site ID: [facility] Name: [facility] Lab Address: [address] [place] [address] Director: Nicholas Live [facility] Hospital[facility]inal[facility], automated with [id number] 23:28:00 Test Item Value Reference Range Interpretation Comments Color, UA (test code YELLOW YELLOW = 5778-6) Appearance (test CLEAR CLEAR code = 5767-9) Specific gravity, 1.017 1.001-1.035 urine (test code = 5811-5) pH, urine (test code 7.0 5.0-8.0 = 5803-2) Glucose, urine (test NEGATIVE NEGATIVE code = 36657-3) Bilirubin, UA (test NEGATIVE NEGATIVE code = 5770-3) Ketones, UA (test NEGATIVE NEGATIVE code = 2514-8) Occult blood, urine NEGATIVE NEGATIVE (test code = 5794-3) Protein, UA (test 2+ NEGATIVE A code = 84060-7) Nitrite, UA (test NEGATIVE NEGATIVE code = 5802-4) Leukocyte esterase, TRACE NEGATIVE A UA (test code = 5799-2) WBC, UA (test code = 0-5 See_Comment [Autom ated 9521-4) message] The system which generated this result transmitted reference range : < OR = 5 /HPF. The reference range was not used to interpr et this result as normal/abnormal . RBC, UA (test code = 0-2 See_Comment [Autom ated 02904-0) message] The system which generated this result transmitted reference range : < OR = 2 /HPF. The reference range was not used to interpr et this result as normal/abnormal . Squamous epithelial 0-5 See_Comment [Automa chely cells, UA (test code message ] The = 08131-5) system which generated this result transmitted reference range : < OR = 5 /HPF. The reference range was not used to interpr et this result as normal/abnormal . Bacteria, UA (test NONE SEEN NONE SEEN /HPF code = 5769-5) Hyaline casts, UA 0-5 NONE SEEN /LPF A (test code = 5796-8) Note: (test code = This urin e was 8251-1) analyzed for th e presence of WBC , RBC, bacteria, casts, and othe r formed elements . Only those elements seen were reported. JEAN PAUL (test code = FASTING:YES JEAN PAUL) FASTING: YES RAC (test code = Performing RAC) Organization Information: Site ID: RGA [facility] Address: [address] [place] [address] Director: Nicholas Live Lab Interpretation Abnormal (test code = 61544-1) [facility] citrullinated peptide antibody, [id number] 23:28:00 Test Item Value Reference Range Interpretation Comments Cyclic citrullin <16 UNITS Reference peptide Ab (test RangeNegati ve: code = 40135-1) <20Weak Posi tive: 20-39Moderate Positive: 40-59Strong Positive: >59 JEAN PAUL (test code = FASTING:YES FASTING: JEAN PAUL) YES RAC (test code = Performing RAC) Organization Information: Site ID: IG [facility] Address: [address] [place] [address] Director: Dr. Nicholas Live [facility] [id number] 23:28:00 Test Item Value Reference Range Interpretation Comments Sjogren's SS-A <1.0 NEG See_Comment [Automated antibody (test message] The code = 36513-5) system which generated this result transmit chely reference range : <1.0 NEG AI. Th e reference range was not used to interpret this result as normal/abnormal . Sjogren's SS-B <1.0 NEG See_Comment [Automated antibody (test message] The code = 06952-6) system which generated this result transmit chely reference range : <1.0 NEG AI. Th e reference range was not used to interpret this result as normal/abnormal . JEAN PAUL (test code = FASTING:YES FASTING: JEAN PAUL) YES RAC (test code = Performing RAC) Organization Information: Site ID: IG [facility] Address: [address] [place] [address] Director: Dr. Nicholas Live [facility])2020-03-16 16:42:00 Test Item Value Reference Range Interpretation Comments SARS-COV2/RT-PCR (test code = Negative Not Detected, Negative 0626894) SARS-COV-2 PERFORMING LAB [facility] (test code = 4600851) Negative result for this test determines that SARS-CoV-2 RNA was not present in the specimen above the Limit of Detection (LOD). However, Negative results do not preclude SARS-CoV-2 infection and should not be used as the sole basis for treatment or patient management decisions. Negative results must be combined with clinical observations, patient history, and epidemiological information. A false negative result may occur if a specimen is improperly collected, transported or handled. A false negative result should be considered if patient's recent exposures or clinical presentation indicate that COVID-19 (SARS-CoV-2) is likely and diagnostic tests for other causes of illness are negative. Re-testing should be considered in cases of suspected false negatives.The limit of detection for this assay is 800 copies/mL.This SARS CoV-2 test is a real-time RT-PCR test intended for the qualitative detection of nucleic acid from SARS-CoV-2 in a nasopharyngeal swab specimen collected from individuals suspected of COVID-19 by their healthcare provider.This test has not been Food and Drug Administration (FDA) cleared or approved. This is a modified version of an approved Emergency Use Authorization (EUA) and is in the process of review by the FDA. Once authorized by the FDA, the issued EUA will be effective until the declaration that circumstances exist justifying the authorization of the emergency use ofin vitro diagnostic tests for detection and/or diagnosis of COVID-19 is terminated under Section 564(b)(2) of the Act or the EUA is revoked under Section 564(g) of the Act.Fact Sheet for Healthcare Prov iders:https://www.[employer]/sites/default/files/product/documents/Fact_Sheet_HC _Jybsrztzs_Qqiw_IISO-VuH-2.pdfFact Sheet for Healthcare Patients:https://www.[employer]/sites/default/files/product/docume nts/Cxud_Hxfrm_Rgtnshrn_Tmhm_OQWG-JgJ-6.pdfPerforming Laboratory:[facility] [place] [address]
[2023-04-27 20:13] LABS: Absolute Lymphocytes (CBC) 3.4 K/uL (0.7-4.9); Lymphocytes % 22.2 % (15.3-44.8); MCV 75.4 fL (80-100); MPV 8.9 fL (7.6-11.3); Platelets 126 thou/uL (152-406); RBC Red Blood Cell Count 3.18 M/uL (3.86-4.86)
[2023-04-27 20:15] LABS: Blood Morphology Comment NOT SEEN (NOT SEEN); Platelet Estimate DECR; White Blood Cell Scan OK (OK)
[2023-04-27 20:51] LABS: Albumin 2.9 g/dL (3.4-5.0); Bilirubin Total 1.5 mg/dL (0.2-1.0); Magnesium 1.8 mg/dL (1.6-2.4); Potassium 2.7 mEq/L (3.5-5.1); Protein, Total 6.7 g/dL (6.4-8.2); Thyroid Stimulating Hormone 0.214 uIU/mL (0.358-3.740)
--- NOTE | 2023-04-27 20:54 | RAD REPORT ---
EXAM DESCRIPTION: RAD - Chest Pa And Lat (2 Views) - 04/27/2023 8:17 pm CLINICAL HISTORY: LLQ pain Chest pain. COMPARISON: Chest Pa And Lat (2 Views) dated 04/06/2023; Chest Single View dated 05/27/2017 TECHNIQUE: PA and lateral views of the chest were obtained. FINDINGS: The lungs are hyperexpanded compatible with COPD. The heart is upper limit of normal in si ze. No fracture or aggressive bony process. IMPRESSION: COPD without acute process identified. The USPSTF recommends annual screening for lung cancer with low-dose CT (LDCT) in adults aged 50 to 80 years who have a 20 pack-year smoking history and currently smoke or have quit within the past 15 years.
[2023-04-27 22:27] VITALS: BMI 19.6
[2023-04-27] MEDS: PIPER TAZO 3.375 GM in NA CHLORIDE 0.9% 100 ML IV SCH (22:32)
[2023-04-27 22:56] LABS: Renal Epithelial <5 /HPF (None Seen); Specific Gravity 1.022 (1.005-1.030); Urine Bacteria 20-50 /HPF (<20); Urine Bilirubin NEGATIVE (Negative); Urine Blood 1+ (Negative); Urine Clarity Extremely Turbid (Clear); Urine Color Yellow (Yellow); Urine Glucose NEGATIVE (Negative); Urine Mucus Slight /HPF (None Seen); Urine Protein 2+ (Negative); Urine Urobilinogen 1+ (Normal)
[2023-04-27] MEDS ORDERED: NA CHLORIDE 0.9% 1,000 ML IV SCH (23:00)
[2023-04-28] MEDS: PIPER TAZO 3.375 GM in NA CHLORIDE 0.9% 100 ML IV SCH ×3 (02:44→17:48)
[2023-04-28] MEDS ORDERED: POTASSIUM CL SA 10 MEQ TAB PO ONE (04:51)
[2023-04-28] MEDS: LEVOTHYROXINE SOD 0.075 MG TAB PO SCH (06:30)
[2023-04-28] MEDS: D5 0.9 NS 1,000 ML IV SCH (07:36)
[2023-04-28 07:55] LABS: Magnesium 1.7 mg/dL (1.6-2.4); Potassium 2.9 mEq/L (3.5-5.1)
--- NOTE | 2023-04-28 07:55 | HP ---
Date of Admission: 04/27/2023 Chief Complaint: Left groin mass and pain. History Of Present Illness: This is an 82-year-old very pleasant female patient, who came into offic e today with her kofmpebe-cs-fyl giving history of swelling, which is painful in her left groin area, and upon further questioning, patient reports that she started to notice this in last few days. Den ies any fall or injury. Denies any fever, chills, nausea, vomiting, constipation, or diarrhea. Fito es any blood in urine or blood in stool. After she was evaluated, decision was made to admit her to hospital for left groin mass and pain. Allergies: TO SULFA AND TETANUS TOXOID. Medications: Amlodipine 5 mg daily, Zetia 10 mg daily, levothyroxine 75 mcg daily, and Everett Thyroi d 180 mg daily. Review of Systems: GI: As mentioned above. Constitutional: Patient has lost 12-pound weight this year. All other systems reviewed and negative. Past Medical History: Significant for hypertension, hyperlipidemia, hypothyroidism, history of posit pablo JHONNY, pancytopenia, osteopenia, osteoarthritis at multiple sites, diverticulosis, impaired fasting glucose, peripheral vascular disease, and right-sided carotid artery stenosis. Past Surgical History: Cataract surgery, thyroidectomy, hysterectomy, reduction mammoplasty and lipo suction, as well as abdominoplasty in the past. Family History: Father , had abdominal aortic aneurysm and bladder cancer. Social History: Negative for smoking. Use of alcohol negative. Physical Examination: Vital Signs: At office today, blood pressure was 121/75, pulse 109, temperature 98.1, respiratory ra te 16, weight 118.2 pounds, height 65 inches. General: Awake, alert, oriented, not in distress. HEENT: Head atraumatic, normocephalic. Conjunctivae nonerythematous. Sclerae white. Mouth, no thr ush or edema noted. Ears/Nose, no mass, lesion, discharge noted. Neck: Supple. No JVD, lymph nodes, bruit, thyromegaly noted. Lungs: Bilateral good equal air entry. Clear to auscultation. No rhonchi. No rales. Heart: Normal heart sounds, no murmur or gallop. Abdomen: Soft. No guarding, rigidity, tenderness. No distention. Bowel sounds normoactive. Left lower quadrant shows rather large mass approximately 10 cm transverse by about 7 cm vertical dimensio n and it is tender to touch. Overlying skin is pink, warm. This mass is hard in consistency. This mass is located just at and above level of inguinal ligament. Extremities: No leg edema. No calf tenderness. Skin: No rash, ulcer, cellulitis. Lymphatics: No lymph node enlargement in neck, supraclavicular, infraclavicular region. Neuro: No focal neurological deficit. Chest: Unremarkable. External Genitalia: Deferred. Rectal: Deferred. Laboratory Data: White count 15.3, hemoglobin 7.2, platelets 126. Sodium 136, potassium 2.7, chlori de 103, bicarb 25, BUN 15, creatinine 1.06, glucose 115. Liver function tests unremarkable except T 61, total bilirubin 1.5. Serum albumin 2.9. TSH 0.24. Chest x-ray shows changes of COPD, otherwi se unremarkable. Impression: 1.Abdominal pain, left lower quadrant. 2.Abdominal mass, left lower quadrant. 3.Pancytopenia. 4.Hypokalemia. 5.Abnormal liver function tests. 6.Hypertension. 7.Impaired fasting glucose. 8.Hyperlipidemia. 9.Peripheral vascular disease. 10.Hypothyroidism, postsurgical. 11.Diverticulosis. 12.Osteoarthritis on multiple sites. 13.Osteopenia. Plan: Admit patient to hospital for further evaluation and management of this problem. The patient is appropriate for inpatient and is expected to spend 2 midnights in the hospital. We will go ahead and start empiric antibiotic, which is Zosyn. Tomorrow I will go ahead and obtain a CT scan of the a bdomen and pelvis with contrast. We will give IV fluid per order. If pain medication becomes necess janelle, then we will order it for her. SCD was ordered for DVT prophylaxis. For hypertension, we will continue antihypertensive medication amlodipine per order and hold if systolic blood pressure less th an 130. For hypothyroidism, we will continue her medication per order. We will have to make adjustm ent on medication considering her TSH is low. Details and plan of treatment discussed with the patie nt and the patient's gqzqoreo-wy-hjd at office and further plan of treatment will depend on the CAT s can result. We will also obtain surgical consultation tomorrow and I will discuss details with the g eneral surgeon, will be consulted tomorrow. FIDELIA/HERB Voice ID: [id number]
--- NOTE | 2023-04-28 08:55 | RAD REPORT ---
EXAM DESCRIPTION: CTAbdomen Pelvis W Contrast - 04/28/2023 8:19 am CLINICAL HISTORY: Abdominal pain. L groin mass, pain COMPARISON: Abdomen Pelvis W Contrast dated 03/15/2020 TECHNIQUE: Biphasic CT imaging of the abdomen and pelvis was performed with 100 ml non-ionic IV cont rast. All CT scans are performed using dose optimization technique as appropriate and may include automated exposure control or mA/KV adjustment according to patient size. FINDINGS: The lung bases are clear. The liver, pancreas, adrenal glands are within normal limits. The spleen is mildly enlarged in size. Bilateral renal cysts are present. No bowel obstruction, free air, free fluid or abscess. Sigmoid diverticulosis coli is present without diverticulitis. Nonvisualized appendix. Diverticulosis of the sigmoid colon is present without diver ticulitis. There is evidence of a 4.0 x 3.0 cm irregular lesion in the left groin with internal necro sis. There is an enlarged adjacent lymph node present as well measuring 4.5 x 1.7 cm. Mild lumbosacral degenerative changes. IMPRESSION: Irregular currently necrotic appearing left groin mass is identified as detailed with ad jacent enlarged lymph node seen. This is favored to be a neoplastic in origin. Advise tissue sampling . Sigmoid diverticulosis coli is present without diverticulitis.
[2023-04-28] MEDS: AMLODIPINE 5 MG TAB PO SCH (09:52)
[2023-04-28 14:10] LABS: Protime INR 1.37
[2023-04-28] MEDS: KCL 20 MEQ/100 mL IVPB 20 MEQ/100 ML BAG IV SCH ×2 (18:28→22:33)
--- NOTE | 2023-04-29 00:58 | PN ---
Date of Progress Note: 04/28/2023 Subjective: Patient was seen this morning for followup. No new complaints or problems reported. Sh brad was lying in bed, sleeping easily, arousable, not in any distress. Objective: Vital Signs: Reviewed. HEENT: Unremarkable. Lungs: Clear to auscultation. Heart: Sounds normal. Abdomen: Soft. Bowel sounds normal. No guarding, rigidity, tenderness, distention. Extremities: No leg edema. The patient has mass in and superior to left inguinal ligament and left groin area. It has remained unchanged from yesterday. Laboratory Data: CAT scan done today of abdomen and pelvis shows hard necrotic mass in the left groi n area. Impression: 1.Left lower quadrant mass. 2.Left lower quadrant abdominal pain. 3.Rule out lymphoma. Plan: We will go ahead and continue empiric antibiotics, Zosyn. We will get blood work done tomorro w morning. The patient has hypokalemia, which will be corrected per electrolyte replacement protocol and we will repeat blood work tomorrow morning. I have discussed details with Dr. Willard, general surgeon, who was consulted and he has ordered a core needle biopsy, which hopefully will be done by the interventional radiologist tomorrow and after that, plan is to discharge her to go home while shivam ting on the biopsy results and we will discharge her with oral antibiotics. Currently she is on IV Zosyn and upon discharge, we will go ahead and send her home with oral Augmentin. FIDELIA/MODL Voice ID: [id number] Report ID: [id number]
[2023-04-29] MEDS: PIPER TAZO 3.375 GM in NA CHLORIDE 0.9% 100 ML IV SCH ×3 (01:02→17:28)
[2023-04-29] MEDS: KCL 20 MEQ/100 mL IVPB 20 MEQ/100 ML BAG IV SCH (01:02)
[2023-04-29] MEDS: D5 0.9 NS 1,000 ML IV SCH ×2 (02:00→22:00)
[2023-04-29] MEDS: LEVOTHYROXINE SOD 0.075 MG TAB PO SCH (06:06)
[2023-04-29] MEDS: AMLODIPINE 5 MG TAB PO SCH (08:10)
[2023-04-29 08:24] LABS: Lymphocytes % 25.7 % (15.3-44.8); MCV 74.4 fL (80-100); MPV 9.1 fL (7.6-11.3); Platelets 96 thou/uL (152-406); RBC Red Blood Cell Count 2.57 M/uL (3.86-4.86)
[2023-04-29 08:37] LABS: Magnesium 1.6 mg/dL (1.6-2.4); Potassium 3.3 mEq/L (3.5-5.1)
[2023-04-29] MEDS ORDERED: PANTOPRAZOLE 40 MG INJ IVP ONE (08:50)
[2023-04-29] MEDS ORDERED: SODIUM CHLORIDE 0.9% 10ML INJ IV PRN (08:50)
[2023-04-29] MEDS ORDERED: KCL 20 MEQ/100 mL IVPB 20 MEQ/100 ML BAG IV SCH (09:00)
[2023-04-29] MEDS: PANTOPRAZOLE 40 MG INJ IVP SCH (09:00)
[2023-04-29 09:03] LABS: Platelet Estimate DECR; White Blood Cell Scan OK (OK)
[2023-04-29 09:04] LABS: Blood Morphology Comment NOTED (NOT SEEN); Hypochromasia 1+
[2023-04-29 09:07] LABS: Hematocrit 19.2 % (36.0-45.0)
--- NOTE | 2023-04-29 10:45 | RAD REPORT ---
EXAM DESCRIPTION: US - Puncture Aspiration Of Yuni - 04/29/2023 10:33 am CLINICAL HISTORY: left groin mass COMPARISON: No comparisons FINDINGS: Preoperative diagnosis: Left groin mass.. Post operative diagnosis: Same. Conscious Sedation: None Fluoroscopy time: None Contrast used: None Estimated blood loss: Minimal The left groin was prepped and draped in the usual sterile fashion. 1% lidocaine was infiltrated into the subcutaneous tissues for local anesthesia. Real time ultrasound scanning of the left groin demon strated irregular 2-3 cm fluid collection with thick soft tissue components. Adjacent enlarged lymph node is present.. Under ultrasound guidance, using a 18-gauge FNA needle, FNA procedure was performed yielding 3-4 mL is a thick yellow and reddish purulent fluid. IMPRESSION: Left groin ultrasound-guided FNA procedure demonstrates the lesion of interest to likely represent an abscess. Results were discussed with Dr. Willard.
[2023-04-29] MEDS ORDERED: NA CHLORIDE 0.9% 250 ML ONE ×2 (12:19→16:13)
--- NOTE | 2023-04-29 12:34 | PN ---
Date of Progress Note: 04/29/2023 Subjective: Patient was seen this morning for followup. No new complaints or problems reported by hakan amaya. Lying in bed, not in distress. Maximum temperature in last 24 hours was 100.4 degree Fahren heit. Morning her temperature was 98.6, pulse 85, respiratory rate 16, blood pressure 117/58. Physical Examination: HEENT: Unremarkable. Lungs: Clear to auscultation. Heart: Sounds normal. Abdomen: Soft. Bowel sounds normal. No guarding, rigidity, tenderness, distention. : Left groin area mass and findings remains unchanged from yesterday. Extremities: No leg edema. Laboratory Data: Today, white count 7.7, hemoglobin has dropped down to 6, platelet count 96. Sodiu m 140, potassium 3.3, chloride 110, bicarb 24, BUN 10, creatinine 1.05, glucose 108. Magnesium 1.6. Impression: 1.Abscess, left lower quadrant of abdomen. 2.Hypertension. 3.Hypothyroidism. 4.Anemia. 5.Thrombocytopenia. Plan: Patient's hemoglobin has dropped down significantly to 6. She came in with hemoglobin of 7.2. She does not have any signs or symptoms of GI bleeding. We will go ahead and give Protonix 40 mg I V x1 today and IV daily from tomorrow and 2 units of PRBC blood transfusion was ordered and will foll ow up on posttransfusion hemoglobin. Patient should have elective GI workup done on outpatient basis . Patient did go down today for core needle aspiration biopsy of left lower quadrant mass and radiol ogist, Dr. Kemp, called and informed me that all he got was pus when he put the needle in, so he is s uggesting that this is abscess and surgical intervention will be necessary, so I did communicate with Dr. Willard and he will plan to do incision and drainage probably tomorrow because we will have to get her blood transfusion completed prior to incision and drainage for this abscess. Details were di scussed with the patient's daughter regarding all this. I will see her tomorrow for followup. FIDELIA/MODL Voice ID: [id number] Report ID: [id number]
[2023-04-29 13:03] LABS: RBC Red Blood Cell Count 2.67 M/uL (3.86-4.86)
[2023-04-29] MEDS ORDERED: Ringers Lactate 1,000 ML IV ONE (14:39)
[2023-04-29] MEDS ORDERED: propofoL 200 MG/20 ML VIAL IV ONE (15:11)
[2023-04-29] MEDS ORDERED: LIDOCAINE 2% MPF 5 ML VIAL ONE (15:12)
[2023-04-29] MEDS ORDERED: FENTANYL CITR 100 MCG/2 ML ONE (15:12)
[2023-04-29] MEDS ORDERED: ONDANSETRON 4 MG/2 ML VIAL ONE (15:12)
[2023-04-29] MEDS ORDERED: LIDOCAINE 1% 20 ML MDV ONE (15:15)
--- NOTE | 2023-04-29 15:24 | EKG ---
Test Date: 2023-04-28 Test Time: 08:46:07 Head Of Ict: KIMBERLY MEASUREMENT RESULTS: Intervals: Rate: 78 MI: 150 QRSD: 72 QT: 418 QTc: 476 [place]: P: 73 MI: 150 QRS: 63 T: 54 INTERPRETIVE STATEMENTS: Sinus rhythm with premature supraventricular complexes Nonspecific ST abnormality Abnormal ECG Compared to ECG 05/28/2017 08:41:50 Atrial premature complex(es) now present ST (T wave) deviation still present Electronically Signed On 04-29-23 15:21:48 CDT by Constantino Benavidez
--- NOTE | 2023-04-29 15:30 | P.BOP ---
Preoperative diagnosis: left groin abscess Postoperative diagnosis: same Primary procedure: Incision and drainage of left groin abscess with incisional biopsy inflamma Secondary procedure: 6x3cm Estimated blood loss: <1cc Specimen: pus Findings: large complex abscess, inflammatory tissue Anesthesia: MAC Complications: None Transferred to: Recovery Room Condition: Good
[2023-04-29] MEDS ORDERED: CODEINE 30MG/APAP 300MG TAB PO PRN (15:33)
[2023-04-29] MEDS ORDERED: MORPHINE 2 MG/ML SYR IV PRN (15:34)
--- NOTE | 2023-04-29 17:08 | RAD REPORT ---
EXAM DESCRIPTION: CT - Thorax Wo Con CLINICAL HISTORY: Chest pain LLQ abd mass COMPARISON: CTANGIO CHEST dated 01/20/2015; Abdomen Pelvis W Contrast dated 04/28/2023 FINDINGS: The lungs are mildly emphysematous but clear. Small left pleural effusion. No pneumothorax . No axillary, mediastinal or hilar adenopathy. 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 No concerning bony finding. The spleen is mildly to moderately enlarged. All CT scans are performed using dose optimization technique as appropriate and may include automated exposure control or mA/KV adjustment according to patient size. IMPRESSION: Mild diffuse COPD with a small left pleural effusion. 4.5 cm aneurysm of ascending thoracic aorta. Mild splenomegaly.
--- NOTE | 2023-04-29 17:18 | OP ---
Date of Procedure: 04/29/2023 Surgeon: Chris Willard MD Preoperative Diagnosis: Left groin abscess, complex abscess. Postoperative Diagnosis: Left groin abscess, complex abscess. Procedure: Incision and drainage of leg groin abscess with incisional biopsy of inflammatory mass, t otal 6 x 3 cm. Specimen: Pus. Findings: Large complex abscess, inflammatory tissue surrounding the area. Anesthesia: MAC plus local. Complications: None. Packing: Iodoform quarter of an inch. Indication: This is the case of an 82-year-old patient comes to us with a left groin mass. The etio logy of that is unknown. She told me at one point it was 3 months. The family stated that she is heaton ving some issues with memory and they are not sure about how certain is her history. We ordered a co re biopsy this morning thinking that could be a large lymph node or even possibility of neoplasm. Wh en the biopsy was done, a just pus come from that area, so I was called back to perform a formal I an d D. The benefits, alternatives, and risks of incision and drainage of complex abscess was fully exp lained, which include, but not limited to infection, bleeding, damage to adjacent structures, anesthe rios complication, recurrence, CA, and even . She also understands this may not relieve any symp toms. She might need more than one surgical intervention. She will require wound care. We might ev en send an excisional biopsy of the inflammatory area once again to rule out any neoplasia since the etiology of that abscess is unknown, since we do not see any specific wound opening on the extremitie s or the groin area. The patient and family understand and she wants to have this done today. She h as been n.p.o. all the day. She was started blood transfusion preoperatively due to an anemia of unk nown origin too. She does not recall her last colonoscopy. She does not recall melena or hematochez ia neither. The area of concern was marked by me and the patient in the holding room. Description Of Procedure: Patient was brought to the operating room, placed in supine position. Ane sthesia was without complication. Left groin was prepped and draped in a sterile fashion. Local ane sthesia was applied followed by sharp incision of the skin. Incision was carried down to the groin a evelyn. We noticed a large complex abscess, multiple loculations. The pus was cultured. Irrigation wa s done. Suction was done. There is inflammatory tissue, which is the inflammatory mass that we init iazacy saw. It is mainly a cavity with some devitalized tissue so we took a biopsy of those multiple areas and sent it for pathological evaluation. After that, hemostasis was obtained and then we put t he iodoform gauze packing. Patient tolerated the procedure well. Patient was sent to recovery in st able condition. EUNICE/HERB Voice ID: [id number] Report ID: [id number]
[2023-04-29 20:27] LABS: Hematocrit 27.8 % (36.0-45.0)
[2023-04-29] MEDS ORDERED: POTASSIUM CL SA 10 MEQ TAB PO ONE (22:09)
[2023-04-30] MEDS: PIPER TAZO 3.375 GM in NA CHLORIDE 0.9% 100 ML IV SCH ×3 (00:31→16:09)
[2023-04-30] MEDS: LEVOTHYROXINE SOD 0.075 MG TAB PO SCH (06:12)
[2023-04-30 07:47] LABS: Magnesium 1.9 mg/dL (1.6-2.4); Potassium 3.8 mEq/L (3.5-5.1)
[2023-04-30 07:51] LABS: Absolute Lymphocytes (CBC) 1.9 K/uL (0.7-4.9); Hematocrit 27.7 % (36.0-45.0); Lymphocytes % 28.1 % (15.3-44.8); MCV 76.9 fL (80-100); MPV 10.4 fL (7.6-11.3); Platelets 101 thou/uL (152-406)
[2023-04-30] MEDS: AMLODIPINE 5 MG TAB PO SCH (08:17)
[2023-04-30] MEDS: PANTOPRAZOLE 40 MG INJ IVP SCH (08:17)
[2023-04-30] MEDS ORDERED: POTASSIUM CL SA 10 MEQ TAB PO ONE (08:45)
[2023-04-30 09:05] LABS: Platelet Estimate ADEQ; Platelets, Giant FEW
[2023-04-30 09:06] LABS: Blood Morphology Comment NOT SEEN (NOT SEEN)
[2023-04-30] MEDS ORDERED: CALCIUM GLUCONATE 1 GM IVPB 1 GM/50 ML BAG IV ONE (09:45)
--- NOTE | 2023-04-30 12:09 | P.PN ---
Subjective Date of Service: 04/30/23 Subjective: Improving (patient has no complaints, feels well generally) Physical Examination - Vital Signs Temperature: 98.5 F Blood Pressure: 127/64 Pulse: 70 Respirations: 16 Pulse Ox (%): 94 - Physical Exam General: Alert, In no apparent distress, Cooperative Integumentary: Other Neurological: Normal tone (RIGHT inguinal wound appears clean, no discharge, well drainaed, appropriate TTP, well packed.) - Studies Laboratory Data (last 24 hrs) 04/30/23 04/30/23 04/29/23 07:22 07:22 20:01 WBC 6.90 Hgb 8.9 L 8.8 L D Hct 27.7 L 27.8 L Plt Count 101 L Sodium 142 Potassium 3.8 BUN 13 Creatinine 1.01 Glucose 103 Magnesium 1.9 04/29/23 04/29/23 04/29/23 20:01 19:54 08:50 WBC Hgb Cancelled Hct Cancelled Cancelled Plt Count Sodium Potassium 3.5 BUN Creatinine Glucose Magnesium Microbiology Data (last 24 hrs): 04/27/23 21:59 Clean Catch Urine [place] Count - Final >100,000 CFU/ML. 04/27/23 21:59 Clean Catch Urine - Final Proteus Mirabilis 04/29/23 10:10 Wound - Left Groin Gram Stain - Final 04/29/23 15:22 Wound - Groin Gram Stain - Final Assessment And Plan - Current Problems (Diagnosis) (1) Cutaneous abscess of groin Current Visit: Yes Status: Acute Plan: Patient is an 82-year-old female status post incision and drainage of left groin abscess. -Patient is doing well the dressings are well packed into the wound -No additional complaints. -Follow-up with Dr. Willard for ongoing wound care per his previous instructions.
--- NOTE | 2023-04-30 12:22 | PN ---
Date of Progress Note: 04/30/2023 Subjective: Patient was seen this morning for followup. No new complaints or problems reported by hakan amaya. She had received 2 units of PRBC blood transfusion yesterday and had incision and drainage f or left groin abscess by Dr. Willard yesterday. She denies any complaints this morning. Physical Examination: Vital Signs: Reviewed. Last temperature 98.5, pulse , blood pressure 127/64, respiratory rate 16. HEENT: Unremarkable. Lungs: Clear to auscultation. Heart: Sounds normal. Abdomen: Soft. Bowel sounds normal. No guarding, rigidity, tenderness, distention. Left groin are a has surgical dressing present that was removed to examine this area. Has blood-stained gauze under neath with iodoform packing present in the left groin wound. No discharge or active bleeding noted. Extremities: No leg edema. Laboratory Data: White count 6.9, hemoglobin 8.9, platelets 101. Sodium 142, potassium 3.8, chlorid e 115, bicarb 23, BUN 13, creatinine 1.01 glucose 103, calcium 6.7, magnesium 1.9. Impression: 1.Abscess, left groin. 2.Hypocalcemia. 3.Anemia. 4.Thrombocytopenia. 5.Hypertension. 6.Hypothyroidism. 7.Urinary tract infection, organism proteus. Plan: We will go ahead and continue current antibiotics. The patient has remained afebrile. ____ was collected yesterday with incision and drainage procedure as well as when radiologist perform ed aspiration, specimen was sent for culture still pending. We will continue current empiric antibio tics. Depending on the final report on the culture, we will make decision regarding adjustment of an tibiotics. Patient was encouraged to ambulate today. Her urine culture has grown Proteus mirabilis and it is sensitive to Zosyn that currently she is on. I did communicate with Dr. Willard yesterday evening, and in his absence, today Dr. Wolfe will be following up with the patient and I did discu ss details with him as well. Patient lives at home by herself. She feels comfortable going back homar e and will make arrangements for home health care services for daily wound care dressing changes. FIDELIA/MODL Voice ID: [id number] Report ID: [id number]
[2023-04-30] MEDS: D5 0.9 NS 1,000 ML IV SCH ×2 (16:09→18:00)
[2023-05-01] MEDS: PIPER TAZO 3.375 GM in NA CHLORIDE 0.9% 100 ML IV SCH ×3 (01:52→16:25)
[2023-05-01 03:48] LABS: Potassium 3.1 mEq/L (3.5-5.1)
[2023-05-01] MEDS ORDERED: POTASSIUM CL SA 10 MEQ TAB PO ONE (06:00)
[2023-05-01] MEDS: LEVOTHYROXINE SOD 0.075 MG TAB PO SCH (06:13)
[2023-05-01] MEDS: PANTOPRAZOLE 40 MG INJ IVP SCH (08:21)
[2023-05-01] MEDS: AMLODIPINE 5 MG TAB PO SCH (08:50)
[2023-05-01] MEDS ORDERED: CALCIUM GLUCONATE 1 GM IVPB 2 GM/100 ML BAG IV ONE (09:00)
[2023-05-01 09:41] VITALS: O2SAT 96
--- NOTE | 2023-05-01 11:04 | PN ---
Date of Progress Note: 05/01/2023 Subjective: The patient was seen this morning for followup. No new complaints or problems reported by patient, lying in bed, not in distress. Objective: Vital Signs: Reviewed. HEENT: Unremarkable. Lungs: Clear to auscultation. Heart: Heart sounds normal. Abdomen: Soft. Bowel sounds normal. No guarding, rigidity, tenderness, or distention. Left groin examination dressing present, which was removed and noted left groin swelling is less compared to bef ore. No active discharge or bleeding. Extremities: No leg edema. Laboratory Data: Sodium 141, potassium 3.1, chloride 114, bicarb 23, BUN 14, creatinine 1.01, glucos e 113, calcium 6.5. Impression: 1.Abscess, left groin. 2.Anemia. 3.Hypocalcemia. 4.Hypothyroidism. 5.Hypokalemia. 6.Thoracic aortic aneurysm, chronic, stable. Plan: We will go ahead and continue current IV antibiotic. Wound culture is growing Staph, definite identification is pending. We will go ahead and continue current antibiotics Zosyn and patient is g rowing Proteus in the urine, so Zosyn should be adequate for current urinary tract infection as well as current left groin abscess. We will definitely wait for the final report on the wound culture the n decide about culture specific antibiotic to go home with and all the details were discussed with e patient and family today. Depending on the culture results we will decide whether she goes home wi oral antibiotic or IV antibiotics and if she does need IV antibiotics like vancomycin, then arlene poe we will have to place PICC line. All these decisions will be made hopefully by tomorrow once we have a final report on the culture og gray. Yesterday, the patient did ambulate with the family very well and today she was encouraged t o do so. Social Service consultation was requested to make arrangements for home health care and phil ly dressing changes at home. FIDELIA/MODL Voice ID: [id number] Report ID: [id number]
[2023-05-01] MEDS: D5 0.9 NS 1,000 ML IV SCH (14:07)
[2023-05-01 16:41] LABS: Ferritin 298.2 ng/mL (8-388); Transferrin 153 mg/dL (200-360)
[2023-05-02] MEDS: PIPER TAZO 3.375 GM in NA CHLORIDE 0.9% 100 ML IV SCH (00:31)
[2023-05-02 04:23] LABS: Magnesium 1.4 mg/dL (1.6-2.4); Potassium 3.4 mEq/L (3.5-5.1)
[2023-05-02 04:53] LABS: Absolute Lymphocytes (CBC) 2.5 K/uL (0.7-4.9); Hematocrit 27.8 % (36.0-45.0); Lymphocytes % 27.8 % (15.3-44.8); MCV 77.9 fL (80-100); MPV 8.2 fL (7.6-11.3); Platelets 159 thou/uL (152-406); RBC Red Blood Cell Count 3.56 M/uL (3.86-4.86)
[2023-05-02 05:01] VITALS: BP 132/65; TEMP 97.5
[2023-05-02] MEDS ORDERED: POTASSIUM CL SA 10 MEQ TAB PO ONE (05:49)
[2023-05-02] MEDS ORDERED: Magnesium Sulfate 2gm IVPB 2 G/50 ML BAG IV ONE (05:52)
[2023-05-02] MEDS: LEVOTHYROXINE SOD 0.075 MG TAB PO SCH (06:17)
[2023-05-02] MEDS ORDERED: COLLAGENASE 30 GM OINTMENT TOP SCH (09:00)
--- NOTE | 2023-05-02 12:18 | EKG ---
Test Date: 2023-04-29 Test Time: 14:17:02 Mailing Specialist: AV MEASUREMENT RESULTS: Intervals: Rate: 81 NE: 168 QRSD: 74 QT: 394 QTc: 457 [place]: P: 82 NE: 168 QRS: 68 T: 69 INTERPRETIVE STATEMENTS: Sinus rhythm with premature supraventricular complexes Otherwise normal ECG Compared to ECG 04/28/2023 08:46:07 ST (T wave) deviation no longer present Electronically Signed On 05-02-23 12:14:17 CDT by Constantino Benavidez
--- NOTE | 2023-05-03 09:13 | DS ---
Date of Discharge: 05/02/2023 Disposition: Discharged to go home. Physical Examination: HEENT: Unremarkable. Lungs: Clear to auscultation. Heart: Sounds normal. Abdomen: Soft. Bowel sounds normal. No guarding, rigidity, tenderness, distention. Left groin are a has a dressing present, which was removed to examine the wound has blood-stained gauze, but no disc harge, no bleeding. Overall, the swelling in the left groin is significantly better compared to befo re and no tenderness today. No discharge. No bleeding. Extremities: No leg edema. Laboratory Data: Today, white count 8.8, hemoglobin 9, platelets 159. Sodium 144, potassium 3.4, ch loride 117, bicarb 22, BUN 11, creatinine 0.98, glucose 111. Magnesium 1.4. Urine culture growing p roteus and wound culture grew Staphylococcus aureus. Discharge Medications And Instructions: 1.Continue Zetia, Synthroid, amlodipine, but make sure to check blood pressure before taking dose of amlodipine and take amlodipine dose only if systolic blood pressure more than 140. 2.Take Levaquin 500 mg daily for 10 days. 3.Stop [place] Thyroid. 4.Start Caltrate plus D 1 tablet by mouth 2 times a day with food. 5.Take magnesium oxide 400 mg daily for 5 days and potassium chloride 10 mEq daily for 5 days. 6.Follow up at my office next week. 7.Follow with Dr. Willard in 1-2 weeks. Final Diagnoses: 1.Abscess, left lower quadrant of abdomen. 2.Hypokalemia. 3.Hypomagnesemia. 4.Anemia. 5.Thrombocytopenia. 6.Hypertension. 7.Hypothyroidism. 8.Hyperlipidemia. Hospital Course: This is an 82-year-old pleasant female patient who came into office with left lower quadrant mass and pain. Please see dictated H and P for more information. After patient came into office, she was evaluated and admitted to the hospital. Patient had a rather large approximately 7 c m x 5 cm mass in the left lower quadrant just at and above the inguinal ligament region. After she w as admitted to the hospital, routine blood work was done and she was started on IV antibiotic, Zosyn. Her initial WBC count was elevated at 15,000. Her hemoglobin was 7.2 upon admission and day after admission, hemoglobin dropped down to 6 requiring 2 units of PRBC blood transfusion. Chest x-ray was unremarkable for any acute changes. 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 CAT scan of the abdomen and pelvis shows mass in the left gr oin area and Dr. Willard was consulted from General Surgery and he recommended a fine-needle aspirat ion biopsy, which was done by radiologist, Dr. Kemp, who called me and informed me that as soon as he tried to do needle aspiration all he got was pus, so he is concerned about that this area is actuall y abscess and not mass and all these findings were discussed with Dr. Willard by radiologist as well as I have discussed with him also. Dr. Willard performed incision and drainage and patient's condi tion started to improve. Daily dressing changes were provided and patient started ambulating well. Social Service was consulted to help make arrangements for home health care. Today, once we got the final report on the culture, we were able to discharge her to go home with culture specific antibioti c, which is Levaquin. I will see her next week on an outpatient basis for followup. FIDELIA/MODL Voice ID: [id number] Report ID: [id number]
== END 2023-05-02 08:10 | disposition home health service (06) | DRG 603 ==
LOC: ERHOLD 18:04 → 2ND 18:15
PROVIDERS: ADMIT Internal Medicine; ATTEND Internal Medicine
PROC: 30233N1 Transfusion of Nonautologous Red Blood Cells into Peripheral Vein, Percutaneous Approach (ICD-10-PCS; 2023-04-29)
PROC: 0J9C0ZX Drainage of Pelvic Region Subcutaneous Tissue and Fascia, Open Approach, Diagnostic (ICD-10-PCS; principal; 2023-04-29 16:15)
DX: L02.214 Cutaneous abscess of groin (principal); L02.818 Cutaneous abscess of other sites; N39.0 Urinary tract infection, site not specified; I10 Essential (primary) hypertension; E78.5 Hyperlipidemia, unspecified; M19.09 Primary osteoarthritis, other specified site; E87.6 Hypokalemia; D64.9 Anemia, unspecified; I73.9 Peripheral vascular disease, unspecified; D69.6 Thrombocytopenia, unspecified; E83.51 Hypocalcemia; E89.0 Postprocedural hypothyroidism; E83.42 Hypomagnesemia; I71.20 Thoracic aortic aneurysm, without rupture, unspecified; K57.90 Diverticulosis of intestine, part unspecified, without perforation or abscess without bleeding; M85.80 Other specified disorders of bone density and structure, unspecified site; B96.4 Proteus (mirabilis) (morganii) as the cause of diseases classified elsewhere; B95.61 Methicillin susceptible Staphylococcus aureus infection as the cause of diseases classified elsewhere; R94.5 Abnormal results of liver function studies; R73.01 Impaired fasting glucose; R19.00 Intra-abdominal and pelvic swelling, mass and lump, unspecified site; Z88.7 Allergy status to serum and vaccine; Z88.2 Allergy status to sulfonamides; Z90.710 Acquired absence of both cervix and uterus; Z79.890 Hormone replacement therapy; Z79.899 Other long term (current) drug therapy
CPT/HCPCS: 10160; 36415; 71046; 71250; 74177; 80048; 80053; 81001; 82306; 82607; 82728; 83540; 83735; 84132; 84443; 84466; 85014; 85018; 85025; 85044; 85610; 85730; 86850; 86900; 86901; 86920; 87070; 87075; 87077; 87086; 87088; 87186; 87205; 88161; 88304; 88305; 93005; 94010; C9113; J0612; J2001; J2270; J2405; J2543; J2704; J3010; J3475; J3480; J3590; J7030; J7042; J7050; J7120; P9016; Q9967

== ENCOUNTER 2023-07-11 11:18 | Inpatient (IN) | payer OTHER ==
--- OUTSIDE RECORDS SUMMARY | 2023-07-11 11:24 | XMS REPORT | Continuity of Care Document ---
:1940 Author Organization [facility] Address [address] [facility]. [address] [place] [address] Care Team Providers Name Role Phone Cleve [...] (disorder) (disorder) Active Problem 01/10/2023 [facility] [place] Amnesia Amnesia Problem Active 2023-01-10 Me moria (finding) (finding) 11:45:48 l Active [place] Problem 01/10/2023 [facility] [place] Fall in Fall in Problem Active 2023-01-10 Me moria home home 11:45:48 l (finding) (finding) Herm monique Active Problem 01/10/2023 [facility] [place] Hyperlipid Hyperlipi Problem Active 2023-01-10 Memoria emia demia 11:45:48 l (disorder) (disorder) He rmann Active Problem 01/10/2023 [facility] [place] Allergies, Adverse Reactions, Alerts Allergy Allergy Status Severity Reaction(s) Onset Inactive Treating Comm ents Source Name Type Date Date Clinician Sulfasal Propensi Active 2010-09 Method i azine ty to 0-10 st adverse 00:00: Hospita reaction 00 l s to drug sulfa sulfa Active Memoria drugs drugs l [place] Family History Family Member Diagnosis Comments Start Date Stop Date Source Natural father Aortic dissection Met [facility] Natural mother Other [facility] Natural sister Osteoarthritis Method [facility] Social History Social Habit Start Date Stop Date Quantity Comments Source Gender identity [facility] Sexual orientation Method [facility] Alcohol intake 2023-03-01 2023-03-01 Current drinker [facility] dist 00:00:00 00:00:00 of alcohol Hospital (finding) History of Social 2023-03-01 2023-03-[address] function 00:00:00 00:00:00 Hospital Tobacco use and 2022-08-31 2022-08-31 Smokeless tobacco [facility] exposure 00:00:00 00:00:00 non-user Hospital Alcohol Comment 2017-10-10 2017-10-10 Occasional Gnosticist 00:00:00 00:00:00 Hospital Sex Ass[birth year] At [birth year] JOHN Galvan 00:00:00 00:00:00 [facility] Center Smoking Status Start Date Stop Date Source Tobacco smoking status [facility] Medications Ordered Filled Start Stop Current Ordering Indication Dosage Frequency Signature Comments Components Source Medication Medication Date Date Medication? Clinician (SIG) Name Name hydroxychlo 2022- No 200mg Q.5D TAKE 1 Me thodi roquine 7-25 10-[address] (PLAQUENIL) 00:00: 04:59 (200 MG Ho spita 200 mg 00 :00 TOTAL) BY l tablet MOUTH 2 (TWO) TIMES A DAY FOR 90 DAYS. hydroxychlo 2022- No 200mg Q.5D TAKE 1 Me thodi roquine 7-25 10-[address] (PLAQUENIL) 00:00: 04:59 (200 MG Ho spita 200 mg 00 :00 TOTAL) BY l tablet MOUTH 2 (TWO) TIMES A DAY FOR 90 DAYS. triamcinolo 2022- No triamcinol Methodi ne 03-[address] (KENALOG) 15:50: 00:00 acetonide Ho spita 0.1 % 52 :00 0.1 % l ointment topical ointment triamcinolo 2022- No triamcinol Methodi ne 03-[address] (KENALOG) 15:50: 00:00 acetonide Ho spita 0.1 % 52 :00 0.1 % l ointment topical ointment losartan 2022- No 25mg QD Take 25 mg Me thodi (Cozaar) 25 03-[address] MG tablet 15:50: 00:00 daily. Hospi ta 45 :00 l losartan 2022-0 2022- No 25mg QD Take 25 mg Me thodi (Cozaar) 25 03-[address] MG tablet 15:50: 00:00 daily. Hospi ta 45 :00 l levothyroxi 2022-2022- No 75ug QD Take 1 Met hodi ne 03-01 tablet (75 st (SYNTHROID) 15:50: 00:00 mcg total) Hospita 75 mcg 37 :00 by mouth l tablet daily. levothyroxi 2022-2022- No 75ug QD Take 1 Met hodi ne 03-01 tablet (75 st (SYNTHROID) 15:50: 00:00 mcg total) Hospita 75 mcg 37 :00 by mouth l tablet daily. hydroxychlo 2022- No 200mg Q.5D 1 tablet Methodi roquine 03-01 ([address] (PLAQUENIL) 15:50: 00:00 total) 2 H ospita 200 mg 34 :00 (two) l tablet times a day. hydroxychlo 0 2022- No 200mg Q.5D 1 tablet Methodi roquine 03-01 ([address] (PLAQUENIL) 15:50: 00:00 total) 2 H ospita 200 mg 34 :00 (two) l tablet times a day. amLODIPine 2022- No 5mg QD Take 5 mg M ethodi (NORVASC) 03-[address] mg tablet 13:48: 00:00 daily. Hospi ta 53 :00 l amLODIPine 2022-0 2022- No 5mg QD Take 5 mg M ethodi (NORVASC) 5 03-[address] mg tablet 13:48: 00:00 daily. Hospi ta 53 :00 l ezetimibe 2022-0 Yes Zetia 10 Meth israel (ZETIA) 10 -[address] mg tablet 13:29: Hospita 24 l aspirin 81 2022-0 Yes 325mg QD Chew 325 Me thodi mg chewable 6-[address] tablet 13:29: Hospita 24 l cranberry 2022-0 Yes Take by Metho di conc-ascorb 6- mouth. st ic acid 13:29: Hospita 4,200-20 mg 24 l capsule zinc 15 mg 2022-0 Yes 25mg Take 25 mg M ethodi tablet 6- by mouth. st 13:29: Hospita 24 l carboxymeth 2022-0 Yes Apply to Me thodi ylcellulose 6- eye. st sodium 13:29: Hospita (REFRESH 24 l OPHT) vit A/vit 2022-0 Yes Take by Metho di C/vit 6- mouth. st E/zinc/adan 13:29: Hospit a er (ICAPS 24 l AREDS ORAL) mv-min-FA-v 2022-0 Yes Take by Met hodi it - mouth. st K-lutein-ze 13:29: Hospit a axant 24 l (PreserVisi on AREDS 2 Plus MV) 200 mcg-15 mcg- 5 mg-1 mg capsule carboxymeth 2022-0 Yes 1[drp] [id number] 1 drop 3 Methodi ylcellulose - [id number] (three) st sodium 1 % 13:29: 3D times a Hosp sumit dropperette 24 day. l ,gel ezetimibe 2022-0 Yes Zetia 10 Meth israel (ZETIA) 10 6-[address] mg tablet 13:29: Hospita 24 l aspirin 81 2022-0 Yes 325mg QD Chew 325 Me thodi mg chewable 6-[address] tablet 13:29: Hospita 24 l cranberry 2022-0 Yes Take by Metho di conc-ascorb - mouth. st ic acid 13:29: Hospita 4,200-20 mg 24 l capsule zinc 15 mg 2022-0 Yes 25mg Take 25 mg M ethodi tablet - by mouth. st 13:29: Hospita 24 l carboxymeth 2022-0 Yes Apply to Me thodi ylcellulose 6-[address] sodium 13:29: Hospita (REFRESH 24 l OPHT) vit A/vit 2022-0 Yes Take by Metho di C/vit 6- mouth. st E/zinc/adan 13:29: Hospit a er (ICAPS 24 l AREDS ORAL) mv-min-FA-v Yes Take by Met hodi it [address] K-lutein-ze 13:29: Hospit a axant 24 l (PreserVisi on AREDS 2 Plus MV) 200 mcg-15 mcg- 5 mg-1 mg capsule carboxymeth Yes 1[drp] [id number] 1 drop 3 Methodi ylcellulose 03-01 [id number] (three) st sodium 1 % 13:29: 3D times a Hosp sumit dropperette 24 day. l ,gel amLODIPine Yes TAKE 1 Memor ia 5 mg oral 3-23 TABLET BY l tablet 18:50: MOUTH [place] 00 EVERY DAY losartan 25 Yes TAKE 1 Jaxson fern mg oral 3-23 TABLET BY l tablet 18:50: MOUTH [place] 00 EVERY DAY Restasis Yes 1 drp, Memoria 0.05% 3-23 BOTH EYES, l ophthalmic 18:50: BID, # 30 He rmann emulsion 00 mL, 0 Refill(s) amLODIPine Yes TAKE 1 Memor ia 5 mg oral 3-23 TABLET BY l tablet 18:50: MOUTH Iván 00 EVERY DAY losartan 25 Yes TAKE 1 Jaxson fern mg oral 3-23 TABLET BY l tablet 18:50: MOUTH [place] 00 EVERY DAY Restasis Yes 1 drp, Memoria 0.05% 3-23 BOTH EYES, l ophthalmic 18:50: BID, # 30 He rmann emulsion 00 mL, 0 Refill(s) amLODIPine 0 Yes TAKE 1 Memor ia 5 mg oral 3-23 TABLET BY l tablet 18:50: MOUTH [place] 00 EVERY DAY losartan 25 Yes TAKE 1 Jaxson fern mg oral 3-23 TABLET BY l tablet 18:50: MOUTH Iván 00 EVERY DAY Restasis Yes 1 drp, Memoria 0.05% 3-23 BOTH EYES, l ophthalmic 18:50: BID, # 30 He rmann emulsion 00 mL, 0 Refill(s) amLODIPine Yes TAKE 1 Memor ia 5 mg oral 3-23 TABLET BY l tablet 18:50: MOUTH [place] 00 EVERY DAY losartan 25 Yes TAKE 1 Jaxson fern mg oral 3-23 TABLET BY l tablet 18:50: MOUTH [place] 00 EVERY DAY Restasis Yes 1 drp, [...] He rmann emulsion 00 mL, 0 Refill(s) [place] Yes 180 mg = 1 Memor ia Thyroid 180 3-23 tab, PO, l mg oral 18:49: Daily, # Vipul n tablet 00 30 tab, 0 Refill(s) PreserVisio Yes CHEW, BID, Memoria n AREDS 2 3-23 0 l 18:49: Refill(s) Iván 00 [place] Yes 180 mg = 1 Memor ia Thyroid 180 3-23 tab, PO, l mg oral 18:49: Daily, # Vipul n tablet 00 30 tab, 0 Refill(s) [place] Yes 180 mg = 1 Memor ia Thyroid 180 3-23 tab, PO, l mg oral 18:49: Daily, # Vipul n tablet 00 30 tab, 0 Refill(s) PreserVisio Yes CHEW, BID, Memoria n AREDS 2 3-23 0 l 18:49: Refill(s) Iván 00 PreserVisio Yes CHEW, BID, Memoria n AREDS 2 3-23 0 l 18:49: Refill(s) Iván [place] Yes 180 mg = 1 Memor ia Thyroid 180 3-23 tab, PO, l mg oral 18:49: Daily, # Vipul n tablet 00 30 tab, 0 Refill(s) PreserVisio Yes CHEW, BID, Memoria n AREDS 2 3-23 0 l 18:49: Refill(s) [place] 2022-0 Yes 180 mg = 1 Memor ia Thyroid 180 3-23 tab, PO, l mg oral 18:49: Daily, # Vipul n tablet 00 30 tab, 0 Refill(s) PreserVisio 2022-0 Yes CHEW, BID, Memoria n AREDS 2 3-23 0 l 18:49: Refill(s) meloxicam 2022-0 Yes 7.5 mg = 1 Me moria 7.5 mg oral 3-23 tab, PO, l tablet 18:48: Daily, # Iván 30 tab, 0 Refill(s) Caltrate 3-0 Yes PO, BID, 0 Mem oria 600 + D 3-23 Refill(s) l 18:48: meloxicam 3-0 Yes 7.5 mg = 1 Me moria 7.5 mg oral 3-23 tab, PO, l tablet 18:48: Daily, # [place] 30 tab, 0 Refill(s) Caltrate 3-0 Yes PO, BID, 0 Mem oria 600 + D 3-23 Refill(s) l 18:48: meloxicam 3-0 Yes 7.5 mg = 1 Me moria 7.5 mg oral 3-23 tab, PO, l tablet 18:48: Daily, # 30 tab, 0 Refill(s) Caltrate 3-0 Yes PO, BID, 0 Mem oria 600 + D 3-23 Refill(s) l 18:48: meloxicam 3-0 Yes 7.5 mg = 1 Me moria 7.5 mg oral 3-23 tab, PO, l tablet 18:48: Daily, # [place] 00 30 tab, 0 Refill(s) Caltrate 3-0 Yes PO, BID, 0 Mem oria 600 + D 3-23 Refill(s) l 18:48: meloxicam 3-0 Yes 7.5 mg = 1 Me moria 7.5 mg oral 3-23 tab, PO, l tablet 18:48: Daily, # Iván 00 30 tab, 0 Refill(s) Caltrate 3-0 Yes PO, BID, 0 Mem oria 600 + D 3-23 Refill(s) l 18:48: aspirin 325 3-0 Yes 325 mg = 1 Memoria mg oral 3-23 cap, PO, l capsule 18:47: Q4H, 0 Refill(s) Zinc 2023-0 Yes 12 mg, PO, Memoria 3-23 Daily, 0 l 18:47: Refill(s) aspirin 325 3-0 Yes 325 mg = 1 Memoria mg oral 3-23 cap, PO, l capsule 18:47: Q4H, 0 Refill(s) Zinc 2023-0 Yes 12 mg, PO, Memoria 3-23 Daily, 0 l 18:47: Refill(s) aspirin 325 3-0 Yes 325 mg = 1 Memoria mg oral 3-23 cap, PO, l capsule 18:47: Q4H, 0 Refill(s) Zinc 2023-0 Yes 12 mg, PO, Memoria 3-23 Daily, 0 l 18:47: Refill(s) aspirin 325 3-0 Yes 325 mg = 1 Memoria mg oral 3-23 cap, PO, l capsule 18:47: Q4H, 0 Refill(s) Zinc 2023-0 Yes 12 mg, PO, Memoria 3-23 Daily, 0 l 18:47: Refill(s) aspirin 325 3-0 Yes 325 mg = 1 Memoria mg oral 3-23 cap, PO, l capsule 18:47: Q4H, 0 Refill(s) Zinc 2023-0 Yes 12 mg, PO, [...] Daily, # 30 tab, 0 Refill(s) Synthroid 2023-0 Yes 50 Memoria 50 mcg 3-23 microgram l (0.05 mg) 18:46: = 1 tab, Herm monique oral tablet 00 PO, Daily, # 30 tab, 0 Refill(s) Synthroid 2023-0 Yes 50 Memoria 50 mcg 3-23 microgram [...] PO, l sulfate 200 18:45: Daily, # Jacob rmann mg oral 00 60 tab, 0 tablet Refill(s) ezetimibe 2023-0 Yes 10 mg = 1 Mem oria 10 mg oral 3-23 tab, PO, l tablet 18:45: Daily, # [place] 00 30 tab, 0 Refill(s) hydroxychlo 2023-0 Yes 400 mg = 2 Memoria roquine 3-23 tab, PO, l sulfate 200 18:45: Daily, # Jacob rmann mg oral 00 60 tab, 0 tablet Refill(s) ezetimibe 2023-0 Yes 10 mg = 1 Mem oria 10 mg oral 3-23 tab, PO, l tablet 18:45: Daily, # Iván 00 30 tab, 0 Refill(s) hydroxychlo 2023-0 Yes 400 mg = 2 Memoria roquine 3-23 tab, PO, l sulfate 200 18:45: Daily, # Jacob rmann mg oral 00 60 tab, 0 tablet Refill(s) ezetimibe 2023-0 Yes 10 mg = 1 Mem oria 10 mg oral 3-23 tab, PO, l tablet 18:45: Daily, # Iván 00 30 tab, 0 Refill(s) hydroxychlo 2023-0 Yes 400 mg = 2 Memoria roquine 3-23 tab, PO, l sulfate 200 18:45: Daily, # Jacob rmann mg oral 00 60 tab, 0 tablet Refill(s) ezetimibe 2022-0 Yes 10 mg = 1 Mem oria 10 mg oral 3-23 tab, PO, l tablet 18:45: Daily, # Iván 00 30 tab, 0 Refill(s) hydroxychlo 2022-0 Yes 400 mg = 2 Memoria roquine 3-23 tab, PO, l sulfate 200 18:45: Daily, # Jacob rmann mg oral 00 60 tab, 0 tablet Refill(s) hydroxychlo 2021-09- No 200mg Q.5D Take 1 Me thodi roquine 2-29 07-[address] (PLAQUENIL) 00:00: 00:00 (200 mg Ho spita 200 mg 00 :00 total) by l tablet mouth 2 (two) times a day for 90 days. hydroxychlo 2021-09- No 200mg Q.5D Take 1 Me thodi roquine 2-29 07-[address] (PLAQUENIL) 00:00: 00:00 (200 mg Ho spita 200 mg 00 :00 total) by l tablet mouth 2 (two) times a day for 90 days. hydroxychlo 2021-09- No TAKE 1 Met hodi roquine 2-28 12-[address] (PLAQUENIL) 00:00: 00:00 MOUTH Hosp sumit 200 mg 00 :00 TWICE A l tablet DAY hydroxychlo 2021-09- No TAKE 1 Met hodi roquine 2-28 12-[address] (PLAQUENIL) 00:00: 00:00 MOUTH Hosp sumit 200 mg 00 :00 TWICE A l tablet DAY ciclopirox 2021-09- No Apply to Ne thodi (PENLAC) 8 0-31 06-[address] % solution 00:00: 00:00 daily, Hosp sumit 00 :00 remove on l 7th day, repeat. ciclopirox 2021-09- No Apply to Me thodi (PENLAC) 8 0-31 06-[address] % solution 00:00: 00:00 daily, Hosp sumit 00 :00 remove on l 7th day, repeat. hydrOXYchlo 0 Yes TAKE 1 Meth israel roQUINE 1-[address] (PLAQUENIL) 00:00: MOUTH Hospi ta 200 mg 00 TWICE A l tablet DAY hydrOXYchlo 2021- No TAKE 1 Met hodi roQUINE 09-[address] (PLAQUENIL) 00:00: 00:00 MOUTH Hosp sumit 200 mg 00 :00 TWICE A l tablet DAY hydrOXYchlo 2021- No TAKE 1 Met hodi roQUINE 09-[address] (PLAQUENIL) 00:00: 00:00 MOUTH [...] 200mg Q.5D Take 1 Me thodi roQUINE 709-[address] (PLAQUENIL) 00:00: 00:00 (200 mg Ho spita 200 mg 00 :00 total) by l tablet mouth 2 (two) times a day. ciprofloxac 2022- No Apply to M ethodi in HCl 10-[address] (CILOXAN) 00:00: 00:00 daily Hospit a 0.3 % 00 :00 l ophthalmic solution ciprofloxac 2022- No Apply to M ethodi in HCl 10-30- nail twice st (CILOXAN) 00:00: 00:00 daily [...] tablet 00:00: Hospita 00 l Immunizations Ordered Filled Immunization Date Status Comments [facility] e Immunization Name Name [place] [id number] 2020-11-03 Completed Methodis t MRNA VACCINATION 00:00:00 [place] [id number] 2020-11-03 Completed Methodis t MRNA VACCINATION 00:00:00 [place] [id number] 2020-10-06 Completed Methodis t MRNA VACCINATION 00:00:00 [place] [id number] 2020-10-06 Completed Methodis t MRNA VACCINATION 00:00:00 [place] [id number] Unknown Completed Methodis t MRNA VACCINATION [facility] Unknown Completed Methodis t MRNA VACCINATION [facility] Vital Signs Vital Name Observation Time Observation Value Comments Source Systolic blood 2023-03-01 18:19:00 136 mm[Hg] Method ist Hospital pressure Diastolic blood 2023-03-01 18:19:00 74 mm[Hg] [facility] Hospital pressure Heart rate 2023-03-01 18:19:00 61 /min [facility] Body height 2023-03-01 18:19:00 162.6 cm [facility] Body weight 2023-03-01 18:19:00 60.782 kg [facility] BMI 2023-03-01 18:19:00 23.00 kg/m2 [facility] Systolic (mm Hg) 2023-01-07 15:08:00 Jaxson rial [place] Diastolic (mm Hg) 2023-01-07 15:08:00 [facility] orial Iván Heart Rate 2023-01-07 15:08:00 [facility] Iván Height 2023-01-07 15:08:00 5 [ft_i] [facility] [place] Weight 2023-01-07 15:08:00 Memorial Iván BMI Calculated 2023-01-07 15:08:00 Memori al [place] Systolic (mm Hg) 2022-11-25 18:14:00 Jaxson rial [place] Diastolic (mm Hg) 2022-11-25 18:14:00 [facility] orial Iván Heart Rate 2022-11-25 18:14:00 [facility] Iván Height 2022-11-25 18:14:00 5 [ft_i] Memorial Iván Weight 2022-11-25 18:14:00 [facility] [place] BMI Calculated 2022-11-25 18:14:00 Memori al [place] Oxygen saturation in 2022-08-31 18:54:00 99 /min [facility] Arterial blood by Pulse oximetry Procedures Procedure Date / Time Performing Clinician Source Performed FERRITIN LEVEL 2023-03-01 05:00:00 [facility] Cameron [facility] TOTAL IRON BINDING CAPACITY 2023-03-01 05:00:00 [facility] RETICULOCYTE COUNT 2023-03-01 05:00:00 [facility] COMPONENT 2022-09-02 13:59:00 [facility] WITH PLATELET AND 2022-09-02 13:59:00 [facility] DIFFERENTIAL COMPREHENSIVE METABOLIC 2022-09-02 13:59:[address] [facility] PANEL C-REACTIVE PROTEIN 2022-09-02 13:59:00 Cameron Bui [facility] SEDIMENTATION RATE 2022-09-02 13:59:00 Cameron Bui [facility] URINALYSIS, AUTOMATED WITH 2022-09-02 13:59:00 Cameron Bui [facility] MICROSCOPY ANTINUCLEAR ANTIBODIES (JHONNY) 2022-09-02 13:59:00 BuiCameron [facility] WITH REFLEX TO TITER AND PATTERN, IMMUNOFLUORESCENCE CYCLIC CITRULLINATED PEPTIDE 2022-09-02 13:59:00 Cameron Bui [facility] AB, IGG RHEUMATOID FACTOR 2022-09-02 13:59:00 Cameron Bui [facility] SS-A AND SS-B ANTIBODY 2022-09-02 13:59:00 Cameron Bui [facility] TTE COMPLETE, W CONTRAST, W 2021-08-03 18:27:05 [id number] Hyste[facility]<sup>1</sup> Judy Minor Plan of Care Planned Activity Planned Date Details Comments Source Future Scheduled 2023-06-29 65+ PNEUMOCOCCAL [facility] Test 03:11:08 VACCINE (1 - PCV) [code = 65+ PNEUMOCOCCAL VACCINE (1 - PCV)] Future Scheduled 2023-06-29 SHINGLES VACCINES (1 [facility] Test 03:11:08 of 2) [code = SHINGLES VACCINES (1 of 2)] Future Scheduled 2023-06-29 COVID-19 VACCINE (3 - [facility] Test 03:11:08 season) [code = COVID-19 VACCINE (3 - season)] Future Scheduled 2023-06-29 INFLUENZA VACCINE (#1) M [facility] Test 03:11:08 [code = INFLUENZA VACCINE (#1)] Future Scheduled 2023-04-06 65+ PNEUMOCOCCAL [facility] Test 03:27:26 VACCINE (1 - PCV) [code = 65+ PNEUMOCOCCAL VACCINE (1 - PCV)] Future Scheduled 2023-04-06 SHINGLES VACCINES (1 [facility] Test 03:27:26 of 2) [code = SHINGLES VACCINES (1 of 2)] Future Scheduled 2023-04-06 COVID-19 VACCINE (3 - [facility] Test 03:27:26 Moderna series) [code = COVID-19 VACCINE (3 - Moderna series)] Future Scheduled 2023-04-06 INFLUENZA VACCINE Method [facility] Test 03:27:26 [code = INFLUENZA VACCINE] Future Scheduled 2022-05-26 HEPATITIS B VACCINES Met [facility] Test 03:47:24 (1 of 3 - 3-dose series) [code = HEPATITIS B VACCINES (1 of 3 - 3-dose series)] Future Scheduled 2022-05-26 65+ [facility] 03:47[facility]24 VACCINE (1 - PCV) [code = 65+ PNEUMOCOCCAL VACCINE (1 - PCV)] Future Scheduled 2022-05-26 SHINGLES VACCINES (1 Met [facility] Test 03:47:24 of 2) [code = SHINGLES VACCINES (1 of 2)] Future Scheduled 2022-05-26 COVID-19 VACCINE (3 - Me [facility] Test 03:47:24 Booster for Moderna series) [code = COVID-19 VACCINE (3 - Booster for Moderna series)] Future Scheduled 2022-05-26 INFLUENZA VACCINE Method [facility] Test 03:47:24 [code = INFLUENZA VACCINE] Encounters Start End Encounter Admission Attending Care Care Encounter Source Date/Time Date/Time Type Type Clinicians Facility Department ID 2023-07-13 2023-07-13 Outpatient EASTON MCCORMACK [id number] Memoria 09:15:00 09:15:00 02 madhuri MccrayThurston 2023-07-13 2023-07-13 Outpatient EASTON MCCORMACK [id number] Memoria 09:15:00 09:15:00 02 madhuri Iván 2023-03-29 2023-03-29 Refill Bui, 1.2.840.1 [id number] Methodi 00:00:00 00:00:00 Cameron Nuñez 76682.1.1 214 s t 3.430.2.7 Hospit a .3.841732 l .8 2023-03-29 2023-03-29 Refill Bui, 1.2.840.1 [id number] Methodi 00:00:00 00:00:00 Cameron AJusta 86136.1.1 214 s t 3.430.2.7 Hospit a .3.749203 l .8 2023-03-01 2023-03-01 Office Bui, 1.2.840.1 [id number] Methodi 13:30:00 15:31:07 Visit Cameron [place]50.1.1 380 s t 3.430.2.7 Hospit a .3.251132 l .8 2023-03-01 2023-03-01 Office Bui, 1.2.840.1 [id number] Methodi 13:30:00 15:31:07 Visit Cameron Nuñez 94074.1.1 380 s t 3.430.2.7 Hospit a .3.296148 l .8 2023-01-07 2023-01-08 Outpatient MHIE MNA [id number] Memoria 15:15:00 04:59:59 Neurology 01 l [place] Iván 2023-01-07 2023-01-08 Outpatient MHIE MNA [id number] Memoria 15:15:00 04:59:59 Neurology 01 l [place] Iván 2023-01-07 2023-01-07 Outpatient DERIC BurchSCHER MHMISCHER [id number] 10:15:00 23:59:59 Waylon 01 Marecl 2023-01-07 2023-01-07 Outpatient MHIE MHIE [id number] Memoria 10:15:00 10:15:00 01 madhuri Iván 2022-11-25 2022-11-26 Outpatient MHIE MNA [id number] Memoria 18:30:00 04:59:59 Neurology 00 l [place] Iván 2022-11-25 2022-11-26 Outpatient MHIE MNA [id number] Memoria 18:30:00 04:59:59 Neurology 00 Ebenezer Minor 2022-11-25 2022-11-25 Outpatient DANIELE BurchMISCHER MHMISCHER [id number] 13:30:00 23:59:59 Waylon 00 Marcel 2022-11-25 2022-11-25 Outpatient MHIE MHIE [id number] Memoria 13:30:00 13:30:00 00 madhuri Minor 2022-09-02 2022-09-02 Refill Fiona, 1.2.840.1 [id number] Methodi 00:00:00 00:00:[address] 3.430.2.7 Hospit a .3.541430 l .8 2022-09-02 2022-09-02 Refill Fiona, 1.2.840.1 [id number] Methodi 00:00:00 00:00:[address] 3.430.2.7 Hospit a .3.269974 l .8 2022-09-01 2022-09-01 Refill Bui, 1.2.840.1 [id number] Methodi 00:00:00 00:00:00 Cameron Nuñez 48917.1.1 948 s t 3.430.2.7 Hospit a .3.847078 l .8 2022-09-01 2022-09-01 Refill Bui, 1.2.840.1 [id number] Methodi 00:00:00 00:00:00 Cameron Gross. 02786.1.1 948 s t 3.430.2.7 Hospit a .3.483367 l .8 2022-08-31 2022-08-31 Office Bui, 1.2.840.1 [id number] Methodi 13:00:00 13:30:00 Visit Cameron Nuñez 73507.1.1 968 s t 3.430.2.7 Hospit a .3.668389 l .8 2022-08-31 2022-08-31 Office Bui, 1.2.840.1 [id number] Methodi 13:00:00 13:30:00 Visit Cameron Gross. 09306.1.1 968 s t 3.430.2.7 Hospit a .3.846725 l .8 2022-08-31 2022-08-31 Telephone Rivera, 1.2.840.1 [id number] Methodi 00:00:00 00:00:[address] 3.430.2.7 Hospit a .3.108194 l .8 2022-08-31 2022-08-31 Travel 1.2.840.1 1.2.929.589 [id number] Methodi 00:00:00 00:00:[address] 3.430.2.7 0.2.7.3.698 Ho spita .3.598121 084.8 l .8 2022-08-31 2022-08-31 Telephone Rivera, 1.2.840.1 [id number] Methodi 00:00:00 00:00:[address] 3.430.2.7 Hospit a .3.892636 l .8 2022-08-31 2022-08-31 Travel 1.2.840.1 1.2.164.907 5614 648919 Methodi 00:00:00 00:00:[address] 3.430.2.7 0.2.7.3.698 Ho spita .3.168959 084.8 l .8 2022-08-11 2022-08-11 Documentat Bui, 1.2.840.1 [id number] Methodi 00:00:00 00:00:00 ion Cameron A. 37634.1.1 324 s t 3.430.2.7 Hospit a .3.928755 l .8 2022-08-11 2022-08-11 Documentat Bui, 1.2.840.1 [id number] 537 [id number] Methodi 00:00:00 00:00:00 ion Cameron A. 15165.1.1 324 s t 3.430.2.7 Hospit a .3.628487 l .8 2022-03-04 2022-03-04 Refill Bui, 1.2.840.1 [id number] 297931 4600 Methodi 00:00:00 00:00:00 Cameron A. 90932.1.1 859 s t 3.430.2.7 Hospit a .3.632327 l .8 2021-09-09 2021-09-09 Refill Jose, 1.2.840.1 [id number] 683122 1717 Methodi 00:00:00 00:00:00 Cameron Gross. 65196.1.1 579 s t 3.430.2.7 Hospit a .3.984212 l .8 2021-08-03 2021-08-03 Travel 1.2.840.1 1.2.143.911 5550 789372 Methodi 00:00:00 00:00:[address] 3.430.2.7 0.2.7.3.698 Ho spita .3.424412 084.8 l .8 2021-08-03 2021-08-03 Outpatient KENA [facility] [id number] [place] 00:00:00 00:00:00 ERNESTINA [address] 2021-06-25 2021-06-25 Outpatient JOSE [facility] [id number] 759 [place] 00:00:00 00:00:00 CAMERON [address] 2020-08-05 2020-08-05 [facility] [id number] 159 [place] 00:00:00 00:00:00 ERNESTINA [address] Results Test Description Test Time Test Comments Results Result Comments Source Ferritin level 2023-03-02 14:55:00 Test Item Value Reference Range Interpretation Comme nts Ferritin level (test code = 2276-4) 57 ng/mL 16-288 RAC (test code = RAC) Performing Organization Information: Site ID: [facility] Name: [email or web address] Address: [address] [place] [id number] Director: Nicholas Live [facility]eticul[facility] [id number] 14:55:00 Test Item Value Reference Range Interpretation Comments Retic count, manual 2.7 % (test code = 84227-8) Retic absolute, auto [id number] See_Comment H [Autom ated (test code = message] The 14071-4) system which generated this result transmitted reference range : 20,000 - 80,000 cells/uL. The reference range was not used to interpret this result as normal/abnormal . RAC (test code = Performing RAC) Organization Information: Site ID: [facility] Name: [email or web address] Address: [address] [place] [address] Director: Nicholas Live Lab Interpretation Abnormal (test code = 12292-1) [facility] iron binding [id number] 14:55:00 Test Item Value Reference Range Interpretation [...] = Performing RAC) Organization Information: Site ID: [facility] Name: [email or web address] Address: [address] [place] [address] Director: Nicholsa Live [facility] Trophy ClubFerritin rvsfw8477-29-74 14:55:00 Test Item Value Reference Range Interpretation Comments Ferritin level (test 57 ng/mL code = 2276-4) RAC (test code = RAC) Performing Organization Information: Site ID: [facility] Name: [email or web address] Address: [address] [place] [address] Director: Nicholas Live [facility] Trophy ClubReticulocyte [id number] 14:55:00 Test Item Value Reference Range Interpretation Comments Retic count, manual 2.7 % (test code = 96011-6) Retic absolute, auto 149186 See_Comment H [Autom ated (test code = message] The 00819-1) system which generated this result transmitted reference range : 20,000 - 80,000 cells/uL. The reference range was not used to interpret this result as normal/abnormal . RAC (test code = Performing RAC) Organization Information: Site ID: A Name: [email or web address] Address: [address] [place] [address] Director: Nicholas Live Lab Interpretation Abnormal (test code = 19462-6) [facility] iron binding ldwxhmgv3783-86-71 14:55:00 Test Item Value Reference Range Interpretation [...] = Performing RAC) Organization Information: Site ID: [facility] Name: [email or web address] Address: [address] [place] [address] Director: Nicholas Live [facility]2023-03-24 13:29:00 Test Item Value Reference Range Interpretation Comments Sed Rate (test code = Sed Rate) 2 [facility]UsjivtaUPJJMLCHC9322-[facility] 13:29:00 Test Item Value Reference Range Interpretation Comments Vitamin B12 Lvl (test code = Vitamin 7875 493-2013 B12 Lvl) [facility] PflugervilleQnbarquPMGVOVAARQ7435-19-76 13:29:00 Test Item Value Reference Range Interpretation Comments Sed Rate (test code = Sed Rate) 2 [facility]KpuicwdADHIEMDRE6722-43-91 13:29:00 Test Item Value Reference Range Interpretation Comments Vitamin B12 Lvl (test code = Vitamin 5232 751-7369 B12 Lvl) [facility] PflugervilleQzvuzenHTRDKXQDZR3094-11-67 13:29:00 Test Item Value Reference Range Interpretation Comments Sed Rate (test code = Sed Rate) 2 [place] 278753-03-24 13:29:00 Test Item Value Reference Range Interpretation Comments Vitamin B12 Lvl (test code = Vitamin 6904 090-0026 B12 Lvl) [facility] PflugervilleOjtssjcWVLKUVBLJX5431-05-85 13:29:00 Test Item Value Reference Range Interpretation Comments Sed Rate (test code = Sed Rate) 2 [facility] CenterYibyjvaWJABLIGUM9190-71-38 13:29:00 Test Item Value Reference Range Interpretation Comments Vitamin B12 Lvl (test code = Vitamin 8195 754-3267 B12 Lvl) [facility] PflugervillePyhkgnjCTTOOKOCWQ1105-22-77 13:29:00 Test Item Value Reference Range Interpretation Comments Sed Rate (test code = Sed Rate) 2 [facility] CenterVfpgedkAWFVUHAZX3307-36-28 13:29:00 Test Item Value Reference Range Interpretation Comments Vitamin B12 Lvl (test code = Vitamin 7578 854-4556 B12 Lvl) [facility] nslwf1320-54-49 23:28:00 Test Item Value Reference Range Interpretation Comments Glucose (test code 94 mg/dL 65-99 Fasting = 2345-7) reference interval BUN (test code = 13 mg/dL 7-25 3094-0) Creatinine (test 0.86 mg/dL 0.60-0.95 code = 2160-0) eGFR (test code = 67 See_Comment The eGFR i s based 02767-3) on the CKD-EPI 2020 equation. To calculate the n ew eGFR from a previous Creatinine or Cystatin Cresul t, go to https://www.kid ne y.org/professio na ls/kdoqi/gfr%5F ca lculator [Automated message] The system which [...] Calcium (test code 9.0 mg/dL 8.6-10.4 = 24912-3) Protein (test code 6.5 g/dL 6.1-8.1 = 2885-2) Albumin, S (test 4.1 g/dL 3.6-5.1 code = 1751-7) Globulin, total 2.4 See_Comment [Automated (test code = message] The 86263-8) system which generated this result transmitted reference [...] AST (test code = 26 U/L 10-35 1920-8) ALT (test code = 15 U/L 6-29 1742-6) JEAN PAUL (test code = FASTING:YES JEAN PAUL) FASTING: YES RAC (test code = Performing RAC) Organization Information: Site ID: RGA Name: [email or web address] Address: [address] [place] [phone] Director: Nicholas Live [facility] with reflex to titer and pattern, immunofluorescence 2022-09-03 23:28:00 Test Item Value Reference Interpretation Comments Range JHONNY Screen (test POSITIVE NEGATIVE A JHONNY IFA is a first code = 48622-6) line screen for detecting thepr esence of up to approximately 1 50 autoantibodies invarious autoi mmune diseases. A pos itive JHONNY IFA resulti s suggestive of autoimmune dise ase and reflexes to titer and pattern. Fu rther laboratory test ing may beconsidere d if clinically ariane cated. For additional information, pl ease refer tohttp://educat ion.[employer]. [facility]/fa q/GAM349(This l ink is being provided for informational/e ducati onal purposes o nly.) JHONNY titer (test 1:1280 titer H Reference R adrienne code = 5048-4) <1:40 Negativ e 1:40-1:80 Low Antibody Level >1:80 Elevated Antibo dy Level JHONNY pattern (test Nuclear, A Centromere pattern is code = 29530-5) Centromere associated w ith limited cutaneoussystem ic sclerosis, AZUL T (Calcinosis, Raynaud's,Esoph ageal dysmotility, Sclerodactyly, Telangiectasia) ,prima ry biliary cholangitis (PB C), and other autoimmunedisea ses. AC-3: Centromer e International Consensus on AN A Patterns(https: //doi. org/10.1515/ccl m -0052) JEAN PAUL (test code = FASTING:YES JEAN PAUL) FASTING: YES RAC (test code = Performing RAC) Organization Information: Site ID: IG Name: [facility] Lab Address: [address] [place] [address] Director: Dr. Nicholas Live Lab Interpretation Abnormal (test code = 12613-9) [facility] ClubC-reactive aabviwq8754-56-50 23:28:00 Test Item Value Reference Range Interpretation [...] RAC) Organization Information: Site ID: RGA Name: [email or web address] Lab Address: [address] [place] [address] Director: Nicholas Live Lab Interpretation Abnormal (test code = 61446-6) [facility] Trophy ClubC4 complement bybioohol0302-78-39 23:28:00 Test Item Value Reference Range Interpretation Comments C4 complement 6 mg/dL Reference Rang e<1 (test code = year: Not 4498-2) established1-14 years: 13-15- 80 years: 15-57> o r = 79 years Not established JEAN PAUL (test code = FASTING:YES JEAN PAUL) FASTING: YES RAC (test code = Performing RAC) Organization Information: Site ID: A Name: [facility] CardiAQ Valve TechnologiesC[facility] Lab Address: [address] [place] [address] Director: Nicholas Live [place] [address] complement mvthuepfs9882-50-46 23:28:00 Test Item Value Reference Range Interpretation Comments C3 complement 64 mg/dL Reference Rang e<1 (test code = year: Not 4485-9) established1-14 years: 82-32791 -80 years: 83-193> or = 79 years Not established JEAN PAUL (test code = FASTING:YES JEAN PAUL) FASTING: YES RAC (test code = Performing RAC) Organization Information: Site ID: [facility] Name: [facility] Lab Address: [address] [place] [address] Director: Nicholas Live [facility] Brenhameumatoid mcevjt4532-87-80 23:28:00 Test Item Value Reference Range Interpretation Comments Rheumatoid factor 100 See_Comment H [Automate d (test code = message] The 19413-0) system which generated this result transmitted reference range : <14 IU/mL. The reference range was not used to interpret this result as normal/abnormal . JEAN PAUL (test code = FASTING:YES JEAN PAUL) FASTING: YES RAC (test code = Performing RAC) Organization Information: Site ID: A Name: [email or web address] Address: [address] [place] [address] Director: Nicholas Live Lab Interpretation Abnormal (test code = 38628-6) [facility] ClubCBC with platelet and kpmixztyeaas3432-05-49 23:28:00 Test Item Value Reference Range Interpretation Comments WBC (test code = 3.5 See_Comment L [Automated 8867-2) message] The system which generated this result transmitted reference range : 3.8 - 10.8 Thousand/uL. Th e reference range was not used to interpret this result as normal/abnormal . RBC (test code = 3.72 See_Comment L [Automated 259-8) message] The system which generated this result [...] RAC) Organization Information: Site ID: FINN Name: [facility] Lab Address: [address] [place] [address] Director: Nicholas Live Lab Interpretation Abnormal (test code = 44575-4) [facility]ed[facility] rxts3448-42-29 23:28:00 Test Item Value Reference Range Interpretation [...] = Performing RAC) Organization Information: Site ID: [facility] Name: [facility] Lab Address: [address] [place] [address] Director: Nicholas Live [facility] ClubUrinalysis, automated with lodinhokfh4214-45-58 23:28:00 Test Item Value Reference Range Interpretation Comments Color, UA (test code YELLOW YELLOW = 5778-6) Appearance (test CLEAR CLEAR code = 5767-9) Specific gravity, 1.017 1.001-1.035 urine (test code = 5811-5) pH, urine (test code 7.0 5.0-8.0 = 5803-2) Glucose, urine (test NEGATIVE NEGATIVE code = 71130-1) Bilirubin, UA (test NEGATIVE NEGATIVE code = 5770-3) Ketones, UA (test NEGATIVE NEGATIVE code = 2514-8) Occult blood, urine NEGATIVE NEGATIVE (test code = 5794-3) Protein, UA (test 2+ NEGATIVE A code = 24121-9) Nitrite, UA (test NEGATIVE NEGATIVE code = 5802-4) Leukocyte esterase, TRACE NEGATIVE A UA (test code = 5799-2) WBC, UA (test code = 0-5 See_Comment [Autom ated 2559-4) message] The system which generated this result transmitted reference range : < OR = 5 /HPF. The reference range was not used to interpr et this result as normal/abnormal . RBC, UA (test code = 0-2 See_Comment [Autom ated 50460-2) message] The system which generated this result transmitted reference range : < OR = 2 /HPF. The reference range was not used to interpr et this result as normal/abnormal . Squamous epithelial 0-5 See_Comment [Automa chely cells, UA (test code message ] The = 11718-0) system which generated this result transmitted reference [...] RAC) Organization Information: Site ID: RGA Name: [email or web address] Address: [address] [place] [address] Director: Nicholas Live Lab Interpretation Abnormal (test code = 80569-7) [facility] citrullinated peptide antibody, [id number] 23:28:00 Test Item Value Reference Range Interpretation Comments Cyclic citrullin <16 UNITS Reference peptide Ab (test RangeNegati ve: code = 16617-6) <20Weak Posi tive: 20-39Moderate Positive: 40-59Strong Positive: >59 JEAN PAUL (test code = FASTING:YES FASTING: JEAN PAUL) YES RAC (test code = Performing RAC) Organization Information: Site ID: IG Name: [email or web address] Address: [address] [place] [address] Director: Dr. Nicholas Live [facility] HospitalSSA[facility]SSB yufdiugl4608-22-60 23:28:00 Test Item Value Reference Range Interpretation Comments Sjogren's SS-A <1.0 NEG See_Comment [Automated antibody (test message] The code = 07110-2) system which generated this result transmit chely reference range : <1.0 NEG AI. Th e reference range was not used to interpret this result as normal/abnormal . Sjogren's SS-B <1.0 NEG See_Comment [Automated antibody (test message] The code = 34564-4) system which generated this result transmit chely reference range : <1.0 NEG AI. Th e reference range was not used to interpret this result as normal/abnormal . JEAN PAUL (test code = FASTING:YES FASTING: JEAN PAUL) YES RAC (test code = Performing RAC) Organization Information: Site ID: IG Name: [email or web address] Address: [address] [place] [address] Director: Dr. Nicholas Live [facility] qqylu6710-37-17 23:28:00 Test Item Value Reference Range Interpretation Comments Glucose (test code 94 mg/dL 65-99 Fasting = 2345-7) reference interval BUN (test code = 13 mg/dL - 3094-0) Creatinine (test 0.86 mg/dL 0.60-0.95 code = 2160-0) eGFR (test code = 67 See_Comment The eGFR i s based 70599-2) on the CKD-EPI 2020 equation. To calculate the n ew eGFR from a previous Creatinine or Cystatin Cresul t, go to https://www.kid ne y.org/professio na ls/kdoqi/gfr%5F ca lculator [Automated message] The system which [...] Calcium (test code 9.0 mg/dL 8.6-10.4 = 77030-5) Protein (test code 6.5 g/dL 6.1-8.1 = 2885-2) Albumin, S (test 4.1 g/dL 3.6-5.1 code = 1751-7) Globulin, total 2.4 See_Comment [Automated (test code = message] The 77772-5) system which generated this result transmitted reference range : 1.9 - 3.7 g/dL (calc). The reference range was not used to interpret this result as normal/abnormal . Albumin/globulin 1.7 See_Comment [Automated ratio (test code = message] The 1759-0) system which generated this result transmitted reference range : 1.0 - 2.5 (calc ). The reference range was not used to interpr et this result as normal/abnormal . Total bilirubin 1.1 mg/dL 0.2-1.2 (test code = 1975-2) Alkaline 64 U/L 37-153 phosphatase (test code = 6768-6) AST (test code = 26 U/L 10-35 1920-8) ALT (test code = 15 U/L 6-29 1742-6) JEAN PAUL (test code = FASTING:YES JEAN PAUL) FASTING: YES RAC (test code = Performing RAC) Organization Information: Site ID: RGA Name: [email or web address] Address: [address] [place] [address] Director: Nicholas Live [facility] with reflex to titer and pattern, immunofluorescence 2022-09-03 23:28:00 Test Item Value Reference Interpretation Comments Range JHONNY Screen (test POSITIVE NEGATIVE A JHONNY IFA is a first code = 90297-0) line screen for detecting thepr esence of up to approximately 1 50 autoantibodies invarious autoi mmune diseases. A pos itive JHONNY IFA resulti s suggestive of autoimmune dise ase and reflexes to titer and pattern. Fu rther laboratory test ing may beconsidere d if clinically ariane cated. For additional information, pl ease refer tohttp://educat ion.[employer]. [facility]/fa q/EOX624(This l ink is being provided for informational/e ducati onal purposes o nly.) JHONNY titer (test 1:1280 titer H Reference R adrienne code = 5048-4) <1:40 Negativ e 1:40-1:80 Low Antibody Level >1:80 Elevated Antibo dy Level JHONNY pattern (test Nuclear, A Centromere pattern is code = 68522-0) Centromere associated w ith limited cutaneoussystem ic sclerosis, AZUL T (Calcinosis, Raynaud's,Esoph ageal dysmotility, Sclerodactyly, Telangiectasia) ,prima ry biliary cholangitis (PB C), and other autoimmunedisea ses. AC-3: Centromer e International Consensus on AN A Patterns(https: //doi. org/10.1515/ccl -2017 -0052) JEAN PAUL (test code = FASTING:YES JEAN PAUL) FASTING: YES RAC (test code = Performing RAC) Organization Information: Site ID: IG Name: [facility] Address: [address] [place] [address] Director: Dr. Nicholas Live Lab Interpretation Abnormal (test code = 62587-4) [facility] ClubC-reactive vwiaiyx4335-84-56 23:28:00 Test Item Value Reference Range Interpretation Comments CRP (test code = 1987-) 10.9 mg/L <=8.0 H JEAN PAUL (test code = JEAN PAUL) FASTING:YES FASTING: YES RAC (test code = RAC) Performing Organization Information: Site ID: RGA Name: [facility] CardiAQ Valve TechnologiesC[facility] Lab Address: [address] [place] [address] Director: Nicholas Live Lab Interpretation (test Abnormal code = 26686-4) [place] [address] complement guliwqcjk3050-51-19 23:28:00 Test Item Value Reference Range Interpretation Comments C4 complement 6 mg/dL Reference Rang e<1 (test code = year: Not 4498-2) established1-14 years: 13-4615- 80 years: 15-57> o r = 79 years Not established JEAN PAUL (test code = FASTING:YES JEAN PAUL) FASTING: YES RAC (test code = Performing RAC) Organization Information: Site ID: RGA Name: [facility]AQ Val[facility] TechnologiesC[facility] Lab Address: [address] [place] [address] Director: Nicholas Live [place] [address] complement zxesvvbys1007-72-70 23:28:00 Test Item Value Reference Range Interpretation Comments C3 complement 64 mg/dL Reference Rang e<1 (test code = year: Not 4485-9) established1-14 years: 82-51156 -80 years: 83-193> or = 79 years Not established JEAN PAUL (test code = FASTING:YES JEAN PAUL) FASTING: YES RAC (test code = Performing RAC) Organization Information: Site ID: FINN Name: [email or web address] Address: [address] [place] [address] Director: Nicholas Live [facility] pqgqno2753-16-07 23:28:00 Test Item Value Reference Range Interpretation Comments Rheumatoid factor 100 See_Comment H [Automate d (test code = message] The 19718-1) system which generated this result transmitted reference range : <14 IU/mL. The reference range was not used to interpret this result as normal/abnormal . JEAN PAUL (test code = FASTING:YES JEAN PAUL) FASTING: YES RAC (test code = Performing RAC) Organization Information: Site ID: [facility] Name: [email or web address] Address: [address] [place] [address] Director: Nicholas Live Lab Interpretation Abnormal (test code = 07756-6) [facility] with platelet and ftxixhqmsohk1483-79-68 23:28:00 Test Item Value Reference Range Interpretation Comments WBC (test code = 3.5 See_Comment L [Automated 0390-2) message] The system which generated this result transmitted reference range : 3.8 - 10.8 Thousand/uL. Th e reference range was not used to interpret this result as normal/abnormal . RBC (test code = 3.72 See_Comment L [Automated 679-8) message] The system which generated this result [...] RAC) Organization Information: Site ID: RGA Name: [facility] Address: [address] [place] [address] Director: Nicholas Live Lab Interpretation Abnormal (test code = 78284-9) [facility] tnwq0945-01-14 23:28:00 Test Item Value Reference Range Interpretation [...] RAC) Organization Information: Site ID: RGA Name: [facility] Lab Address: [address] [place] [address] Director: Nicholas Live [facility] ClubUrinalysis, automated with igjronjyeg6732-03-34 23:28:00 Test Item Value Reference Range Interpretation Comments Color, UA (test code YELLOW YELLOW = 5778-6) Appearance (test CLEAR CLEAR code = 5767-9) Specific gravity, 1.017 1.001-1.035 urine (test code = 5811-5) pH, urine (test code 7.0 5.0-8.0 = 5803-2) Glucose, urine (test NEGATIVE NEGATIVE code = 92161-4) Bilirubin, UA (test NEGATIVE NEGATIVE code = 5770-3) Ketones, UA (test NEGATIVE NEGATIVE code = 2514-8) Occult blood, urine NEGATIVE NEGATIVE (test code = 5794-3) Protein, UA (test 2+ NEGATIVE A code = 21937-1) Nitrite, UA (test NEGATIVE NEGATIVE code = 5802-4) Leukocyte esterase, TRACE NEGATIVE A UA (test code = 5799-2) WBC, UA (test code = 0-5 See_Comment [Autom ated 5821-4) message] The system which generated this result transmitted reference range : < OR = 5 /HPF. The reference range was not used to interpr et this result as normal/abnormal . RBC, UA (test code = 0-2 See_Comment [Autom ated 52578-7) message] The system which generated this result transmitted reference range : < OR = 2 /HPF. The reference range was not used to interpr et this result as normal/abnormal . Squamous epithelial 0-5 See_Comment [Automa chely cells, UA (test code message ] The = 25396-1) system which generated this result transmitted reference [...] RAC) Organization Information: Site ID: RGA Name: [email or web address] Address: [address] [place] [address] Director: Nicholas Live Lab Interpretation Abnormal (test code = 56854-5) [facility] citrullinated peptide antibody, [id number] 23:28:00 Test Item Value Reference Range Interpretation Comments Cyclic citrullin <16 UNITS Reference peptide Ab (test RangeNegati ve: code = 77668-1) <20Weak Posi tive: 20-39Moderate Positive: 40-59Strong Positive: >59 JEAN PAUL (test code = FASTING:YES FASTING: JEAN PAUL) YES RAC (test code = Performing RAC) Organization Information: Site ID: IG Name: [facility] Address: [address] [place] [address] Director: Dr. Nicholas Live [facility] HospitalSS[facility]SSB wmlbfsvv2116-30-35 23:28:00 Test Item Value Reference Range Interpretation Comments Sjogren's SS-A <1.0 NEG See_Comment [Automated antibody (test message] The code = 28373-6) system which generated this result transmit chely reference range : <1.0 NEG AI. Th e reference range was not used to interpret this result as normal/abnormal . Sjogren's SS-B <1.0 NEG See_Comment [Automated antibody (test message] The code = 79460-9) system which generated this result transmit chely reference range : <1.0 NEG AI. Th e reference range was not used to interpret this result as normal/abnormal . JEAN PAUL (test code = FASTING:YES FASTING: JEAN PAUL) YES RAC (test code = Performing RAC) Organization Information: Site ID: IG Name: [email or web address] Address: [address] [facility] [place] [address] Director: Dr. Nicholas Live [facility] HospitalARS-COV2/[facility]-PCR ([facility])2020-03-16 16:42:00 Test Item Value Reference Range Interpretation Comments SARS-COV2/RT-PCR (test code = Negative Not Detected, Negative 3829299) SARS-COV-[address] [facility] (test code = 3076289) Negative result for this test determines that [...] of the Act.Fact Sheet for Healthcare Prov iders:https://www.quidel.com/sites/default/files/product/documents/Fact_Sheet_HC _Zhxifzffm_Coxa_XNHT-FjF-3.pdfFact Sheet for Healthcare Patients:https://www.[employer]/sites/default/files/product/docume nts/Ioly_Caqkk_Sgspkbfb_Ucgj_SMGX-ZwF-3.pdfPerforming Laboratory:[facility] [place] [address]
[2023-07-11] MEDS ORDERED: ACETAMINOPHEN 500 MG TAB ONE (12:20)
[2023-07-11] MEDS ORDERED: NA CHLORIDE 0.9% 1,000 ML ONE (12:21)
[2023-07-11] MEDS ORDERED: ONDANSETRON 4 MG/2 ML VIAL ONE (13:21)
[2023-07-11] MEDS ORDERED: MORPHINE 2 MG/ML SYR ONE (13:21)
[2023-07-11 13:46] LABS: Hematocrit 25.4 % (36.0-45.0); Lymphocytes % 22.3 % (15.3-44.8); MCV 78.3 fL (80-100); MPV 8.3 fL (7.6-11.3); Platelets 51 thou/uL (152-406); RBC Red Blood Cell Count 3.25 M/uL (3.86-4.86)
[2023-07-11 13:50] LABS: Protime INR 1.29
[2023-07-11] MEDS ORDERED: VANCOMYCIN 1 GM/VIAL ONE (13:59)
[2023-07-11] MEDS ORDERED: NA CHLORIDE 0.9% 0 ML ONE (14:00)
[2023-07-11 14:02] LABS: Albumin 3.1 g/dL (3.4-5.0); Bilirubin Total 1.9 mg/dL (0.2-1.0); Potassium 3.1 mEq/L (3.5-5.1); Protein, Total 6.3 g/dL (6.4-8.2)
[2023-07-11] MEDS ORDERED: VANCOMYCIN 0.75 GM in NA CHLORIDE 0.9% 150 ML IVPB ONE (14:07)
--- NOTE | 2023-07-11 14:13 | ER ---
Nurse's Notes [facility] Name: Grecia Donnelly Age: 82 yrs Sex: Female : 1940 Arrival Date: 07/11/2023 Time: 11:18 Bed 13 Private MD: Diagnosis: Cellulitis, unspecified;Sepsis, unspecified organism;Hypokalemia;QTC Prolongation Presentation: 07/11 11:22 Chief complaint: EMS states: Left arm lesion, "seems infected" along with right hip [facility] pain. Pt was unable to get out of bed this morning. 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 Pt complaining of right groin pain for the last couple of days, getting worse. Coronavirus screen: Vaccine status: Patient reports receiving the 2nd dose of the covid vaccine. Ebola Screen: Patient denies travel to an Ebola-affected area in the 21 days before illness onset. Initial Sepsis Screen: Does the patient meet any 2 criteria? No. Patient's initial sepsis screen is negative. Does the patient have a suspected source of infection? Yes: Skin breakdown/wound. Risk Assessment: Do you want to hurt yourself or someone else? Patient reports no desire to harm self or others. Onset of symptoms was July 2023. 11:22 Method Of Arrival: EMS: [facility] 11:22 Acuity: SHABBIR 3 [facility] Historical: - Allergies: 11:58 Sulfa (Sulfonamide Antibiotics); nj1 - PMHx: 11:58 ascending aortic aneurysm; High Cholesterol; Hypertension; Sjogren's Syndrome; Thyroid nj problem; - Immunization history:: Client reports receiving the 2nd dose of the Covid vaccine. - Social history:: Smoking status: Patient denies any tobacco usage or history of. Screenin:30 [facility] ED Fall Risk Assessment (Adult) Score/Fall Risk Level 3 or more points = High iw Risk Oriented to surroundings, Maintained a safe environment, Hourly rounding (assess needs \\T\\ fall precautionary measures) done, Offered frequent toileting (1:1 observation), Utilized family, sitter, or virtual sr. strategic sourcing manager as indicated. 11:30 Abuse screen: Denies threats or abuse. Denies injuries from another. Nutritional iw screening: No deficits noted. Tuberculosis screening: No symptoms or risk factors identified. Assessment: 11:30 General: Appears in no apparent distress. comfortable, Behavior is calm, cooperative, iw appropriate for age. Pain: Complains of pain in right femoral area Aggravated by repositioning. 11:30 Neuro: Level of Consciousness is awake, alert, obeys commands, Oriented to person, iw place, situation. Cardiovascular: Patient's skin is warm and dry. Respiratory: Airway is patent Respiratory effort is even, unlabored. 12:30 Reassessment: Patient appears in no apparent distress at this time. No changes from [facility] previously documented assessment. Patient and/or family updated on plan of care and expected duration. Pain level reassessed. Patient is alert, oriented x 3, equal unlabored respirations, skin warm/dry/pink. 13:30 Reassessment: Patient appears in no apparent distress at this time. No changes from [facility] previously documented assessment. Patient and/or family updated on plan of care and expected duration. Pain level reassessed. Patient is alert, oriented x 3, equal unlabored respirations, skin warm/dry/pink. 13:55 Reassessment: Call placed to pharmacy to clarify vancomycin order, instructed by Jeffry barrios to fax order to them for mixing. 14:40 Reassessment: Patient appears in no apparent distress at this time. Patient and/or nj1 family updated on plan of care and expected duration. Pain level reassessed. Patient is alert, oriented x 3, equal unlabored respirations, skin warm/dry/pink. Patient denies pain at this time. Patient states feeling better. Patient states symptoms have improved. 16:42 Reassessment: No changes from previously documented assessment. Patient and/or family 1 updated on plan of care and expected duration. Pain level reassessed. watching tv. Waiting on a room assignment. Vital Signs: 11:22 BP 169 / 92; Pulse 86; Resp 18; Temp 100.4(O); Pulse Ox 94% on R/A; Weight 52.62 kg; nj1 Height 5 ft. 5 in. ; 12:15 BP 165 / 78; Pulse 98; Resp 22; Pulse Ox 94% on R/A; iw 13:30 BP 165 / 90; Pulse 113; Resp 20; Pulse Ox 94% on R/A; iw 14:40 BP 141 / 70; Pulse 102; Resp 18; Pulse Ox 96% ; Pain 0/10; nj1 15:30 BP 134 / 65; Pulse 96; Resp 20; Pulse Ox 93% on R/A; ll1 16:30 BP 111 / 66; Pulse 86; Resp 20; Pulse Ox 95% on R/A; ll1 17:24 BP 106 / 66; Pulse 84; Resp 19; Pulse Ox 97% on R/A; ll1 17:48 BP 129 / 66; Pulse 86; Resp 20; Temp 98.5(O); Pulse Ox 94% ; ll1 11:22 Body Mass Index 19.30 (52.62 kg, 165.1 cm) nj1 14:40 Pain Scale: Adult nj1 ED Course: 11:30 Patient arrived in ED. nj1 11:30 Patient has correct armband on for positive identification. Bed in low position. Call iw light in reach. Adult w/ patient. 11:30 Provided Education on: call light, fall precautions. iw 11:36 Aaron Viera MD is Attending Physician. ec2 11:53 Belkis Richard RN is Primary Nurse. nj1 11:58 Triage completed. nj1 11:59 Arm band placed on right wrist. nj1 12:45 Missed attempt(s): 22 gauge in right antecubital area. bc6 12:54 Missed attempt(s): 22 gauge in right wrist. bc6 13:20 Inserted saline lock: 20 gauge in right antecubital area, using aseptic technique. nj1 ,using aseptic technique. Ultrasound guided. Catheter tip well visualized within vasculature during placement. Blood collected. 13:46 Pelvis XRAY In Process Unspecified. EDMS 14:12 Braxton Ashley is Hospitalizing Provider. ec2 17:48 No provider procedures requiring assistance completed. Patient admitted, IV remains in ll1 place. Administered Medications: 13:25 Drug: Acetaminophen PO 1000 mg PO once Route: PO; iw 13:25 Drug: NS 0.9% IV 1000 ml IV at 1 bolus Per protocol; 1000 mL bolus Route: IV; Rate: 1 iw bolus; Site: right antecubital; 14:30 Follow up: IV Status: Completed infusion; IV Intake: 1000ml nj1 13:25 Drug: morphine IVP or IV 2 mg IVP once over 4 mins Route: IVP; Infused Over: 4 mins; iw Site: right antecubital; 15:33 Follow up: Response: No adverse reaction; Pain is decreased nj1 13:25 Drug: Ondansetron IVP 4 mg IVP once; over 2 minutes Route: IVP; Site: right antecubital;iw 15:33 Follow up: Response: No adverse reaction nj1 14:38 Drug: Cefepime IVPB 1 grams IVPB at 200 ml/hr once over 30 mins; (mix in NS 100 mL) nj1 Route: IVPB; Rate: 200 ml/hr; Infused Over: 30 mins; Site: right antecubital; 15:08 Follow up: Response: No adverse reaction; IV Status: Completed infusion; IV Intake: nj1 100ml 14:40 Drug: Potassium Chloride PO 40 mEq PO once Route: PO; nj1 15:33 Follow up: Response: No adverse reaction nj1 15:10 Drug: vancoMYCIN IVPB 15 mg/kg IVPB once; once over 2 hrs; not to exceed 2 grams; (mix nj1 in 250 to 500 mL NS) Route: IVPB; Site: right antecubital; 17:10 Follow up: Response: No adverse reaction; IV Status: Completed infusion; IV Intake: ll1 150ml 15:10 Drug: Magnesium Sulfate IVPB 1 grams IVPB once over 1 hrs Route: IVPB; Infused Over: 1 nj1 hrs; Site: right antecubital; 16:10 Follow up: Response: No adverse reaction; IV Status: Completed infusion; IV Intake: ll1 100ml Medication: 17:49 VIS not applicable for this client. 1 Intake: 14:30 IV: 1000ml; Total: 1000ml. nj1 15:08 IV: 100ml; Total: 1100ml. nj1 16:10 IV: 100ml; Total: 1200ml. ll1 17:10 IV: 150ml; Total: 1350ml. 1 Outcome: 14:13 Decision to Hospitalize by Provider. ec2 17:48 Admitted to Med/surg accompanied by tech, via stretcher, room 213, Report called to coral Rogers RN 17:48 Condition: stable 17:48 Instructed on the need for admit, 17:55 Patient left the ED. [facility] Signatures: Dispatcher [facility] Minda Brandon RN RN iw Lewis, Lynsay, RN RN ll1 Carowatson, Breana bc6 Jaco, Norma, RN RN nj1 Aaron Viera, MD ec2
--- NOTE | 2023-07-11 14:13 | EDPHYS ---
Physician Documentation [facility] Name: Grecia Donnelly Age: 82 yrs Sex: Female : 1940 Arrival Date: 07/11/2023 Time: 11:18 Bed 13 Private MD: ED Physician Aaron Viera HPI: 07/11 11:53 This 82 yrs old Female presents to ER via Unassigned with complaints of ec2 concern for rash. 11:53 Patient arrives today due to concern for pain at the left forearm. States that she ec2 recent had a biopsy for a skin lesion, subsequently developed pain and redness at the area. Patient reports no fevers or chills, no nausea or vomiting. Patient also reports a right hip pain, no recent falls. Denies any medication allergies.. Historical: - Allergies: 11:58 Sulfa (Sulfonamide Antibiotics); nj1 - PMHx: 11:58 ascending aortic aneurysm; High Cholesterol; Hypertension; Sjogren's Syndrome; Thyroid nj1 problem; - Immunization history:: Client reports receiving the 2nd dose of the Covid vaccine. - Social history:: Smoking status: Patient denies any tobacco usage or history of. ROS: 11:53 Constitutional: as per hpi ec2 Exam: 11:53 Constitutional: GEN: NAD Head: atraumatic Eyes: EOMI Ears: External ears are ec2 normal. CV: regular rate LUNGS: no respiratory distress ABD: non-distended SKIN: Left mid forearm with skin lesion with surrounding erythema and warmth, no appreciable fluctuance or discharge noted MSK: no evidence of trauma, right hip with good range of motion, no tenderness palpation, no deformities appreciated. NEURO: moves all extremities equally Vital Signs: 11:22 BP 169 / 92; Pulse 86; Resp 18; Temp 100.4(O); Pulse Ox 94% on R/A; Weight 52.62 kg; nj1 Height 5 ft. 5 in. ; 12:15 BP 165 / 78; Pulse 98; Resp 22; Pulse Ox 94% on R/A; iw 13:30 BP 165 / 90; Pulse 113; Resp 20; Pulse Ox 94% on R/A; iw 14:40 BP 141 / 70; Pulse 102; Resp 18; Pulse Ox 96% ; Pain 0/10; nj1 15:30 BP 134 / 65; Pulse 96; Resp 20; Pulse Ox 93% on R/A; ll1 16:30 BP 111 / 66; Pulse 86; Resp 20; Pulse Ox 95% on R/A; ll1 17:24 BP 106 / 66; Pulse 84; Resp 19; Pulse Ox 97% on R/A; ll1 17:48 BP 129 / 66; Pulse 86; Resp 20; Temp 98.5(O); Pulse Ox 94% ; ll1 11:22 Body Mass Index 19.30 (52.62 kg, 165.1 cm) nj1 14:40 Pain Scale: Adult nj1 MDM: 11:36 Patient medically screened. ec2 11:53 ED course: Patient arrives today due to concern for skin lesion as well as right hip ec2 pain. Examination remarkable for well-appearing individual who has an obvious infection of the left midforearm. Will obtain a septic work-up given the patient's fever, will give the patient vancomycin for empiric coverage. Currently patient meets strictly fever from the insertion right ear however does not meet a second SIRS criteria at this time. Additionally obtain a radiograph of the right hip.. 14:10 Data reviewed: vital signs. ED course: Patient's lab work remarkable for metabolic ec2 profile with hypokalemia 3.1. She has a lactic acid that is within normal ranges. CBC shows marked leukocytosis to 18. Presentation consistent with sepsis secondary to cellulitis. Will admit for continued antibiotic coverage. Will add on cefepime coverage as well. . 14:11 ED course: Pelvis x-ray independently reviewed and interpreted by me, shows no acute ec2 bony process. Ultimately patient requires admission for continued management of her sepsis secondary to cellulitis. Discussed results with patient and the family and recommended admission and they are agreeable.. 14:17 ED course: EKG obtained, independently reviewed and interpreted by me, shows atrial ec2 fibrillation, rate of 99, no acute ST segment elevations, intervals are pertinent for QTc prolongation at 551, will supplement the patient's potassium.. 07/11 11:53 Order name: Blood Culture Adult (2) ec2 07/11 11:53 Order name: CBC with Diff ec2 07/11 11:53 Order name: CMP; Complete Time: 14:10 ec2 07/11 11:53 Order name: Lactate w/ 2H reflex if indic.; Complete Time: 14:10 ec2 07/11 11:53 Order name: Protime (+inr); Complete Time: 13:53 ec2 07/11 11:53 Order name: Ptt, Activated; Complete Time: 13:53 ec2 07/11 15:34 Order name: Lactate w/ 2H reflex if indic. EDMS 07/11 15:34 Order name: Vancomycin Peak EDMS 07/11 15:34 Order name: Basic Metabolic Panel EDMS 07/11 15:34 Order name: Basic Metabolic Panel EDMS 07/11 15:34 Order name: Basic Metabolic Panel EDMS 07/11 15:34 Order name: Basic Metabolic Panel EDMS 07/11 15:34 Order name: Basic Metabolic Panel EDMS 07/11 15:34 Order name: Basic Metabolic Panel EDMS 07/11 15:34 Order name: CBC with Automated Diff EDMS 07/11 15:34 Order name: Urinalysis w/ reflexes EDMS 07/11 15:35 Order name: CBC with Automated Diff EDMS 07/11 15:35 Order name: CBC with Automated Diff EDMS 07/11 15:35 Order name: CBC with Automated Diff EDMS 07/11 15:35 Order name: CBC with Automated Diff EDMS 07/11 15:35 Order name: CBC with Automated Diff EDMS 07/11 15:35 Order name: Magnesium EDMS 07/11 15:35 Order name: Magnesium EDMS 07/11 15:35 Order name: Magnesium EDMS 07/11 15:35 Order name: Magnesium EDMS 07/11 15:35 Order name: Magnesium EDMS 07/11 15:35 Order name: Magnesium EDMS 07/11 15:35 Order name: Phosphorus EDMS 07/11 15:35 Order name: Phosphorus EDMS 07/11 15:35 Order name: Phosphorus EDMS 07/11 15:35 Order name: Phosphorus EDMS 07/11 15:35 Order name: Phosphorus EDMS 07/11 15:35 Order name: Phosphorus EDMS 07/11 12:23 Order name: Pelvis XRAY; Complete Time: 15:44 ec2 07/11 11:53 Order name: EKG; Complete Time: 11:53 ec2 07/11 11:53 Order name: Cardiac monitoring; Complete Time: 13:37 ec2 07/11 11:53 Order name: EKG - Nurse/Tech; Complete Time: 14:15 ec2 07/11 11:53 Order name: IV Saline Lock - Large Bore; Complete Time: 13:37 ec2 07/11 11:53 Order name: Labs collected and sent; Complete Time: 13:37 ec2 07/11 11:53 Order name: O2 Per Protocol; Complete Time: 14:15 ec2 07/11 11:53 Order name: O2 Sat Monitoring; Complete Time: 13:37 ec2 07/11 11:53 Order name: Vital Signs; Complete Time: 13:37 ec2 Administered Medications: 13:25 Drug: Acetaminophen PO 1000 mg PO once Route: PO; iw 13:25 Drug: NS 0.9% IV 1000 ml IV at 1 bolus Per protocol; 1000 mL bolus Route: IV; Rate: 1 iw bolus; Site: right antecubital; 14:30 Follow up: IV Status: Completed infusion; IV Intake: 1000ml nj1 13:25 Drug: morphine IVP or IV 2 mg IVP once over 4 mins Route: IVP; Infused Over: 4 mins; iw Site: right antecubital; 15:33 Follow up: Response: No adverse reaction; Pain is decreased nj1 13:25 Drug: Ondansetron IVP 4 mg IVP once; over 2 minutes Route: IVP; Site: right antecubital;iw 15:33 Follow up: Response: No adverse reaction nj1 14:38 Drug: Cefepime IVPB 1 grams IVPB at 200 ml/hr once over 30 mins; (mix in NS 100 mL) nj1 Route: IVPB; Rate: 200 ml/hr; Infused Over: 30 mins; Site: right antecubital; 15:08 Follow up: Response: No adverse reaction; IV Status: Completed infusion; IV Intake: nj1 100ml 14:40 Drug: Potassium Chloride PO 40 mEq PO once Route: PO; nj1 15:33 Follow up: Response: No adverse reaction nj1 15:10 Drug: vancoMYCIN IVPB 15 mg/kg IVPB once; once over 2 hrs; not to exceed 2 grams; (mix nj1 in 250 to 500 mL NS) Route: IVPB; Site: right antecubital; 17:10 Follow up: Response: No adverse reaction; IV Status: Completed infusion; IV Intake: ll1 150ml 15:10 Drug: Magnesium Sulfate IVPB 1 grams IVPB once over 1 hrs Route: IVPB; Infused Over: 1 nj1 hrs; Site: right antecubital; 16:10 Follow up: Response: No adverse reaction; IV Status: Completed infusion; IV Intake: ll1 100ml Disposition Summary: 07/11/23 14:13 Hospitalization Ordered Notes: Hospitalization Status: Inpatient Admission ec2 Provider: Braxton Ashley ec2 Location: Telemetry/MedSurg (Inpatient) ec2 Condition: Stable ec2 Problem: new ec2 Symptoms: have improved ec2 Bed/Room Type: Standard ec2 Room Assignment: 213(07/11/23 17:06) bd Diagnosis - Cellulitis, unspecified ec2 - Sepsis, unspecified organism ec2 - Hypokalemia ec2 - QTC Prolongation ec2 Forms: - Medication Reconciliation Form ec2 - SBAR form ec2 - Leadership Thank You Letter ec2 Critical care time excluding procedures: 14:11 Critical care time: Bedside Care: 30 minutes, Consultation: 5 minutes. Total time: 35 ec2 minutes Signatures: Dispatcher [employer] EDMS Radha Shaver Irene, RN RN iw Belkis Richard RN RN nj1 Aaron Viera MD MD ec2 Philly Merritt RN ll1 Corrections: (The following items were deleted from the chart) 12:22 11:53 Constitutional: GEN: NAD Head: atraumatic Eyes: EOMI Ears: External ears are ec2 normal. CV: regular rate LUNGS: no respiratory distress ABD: non-distended SKIN: Left mid forearm with skin lesion with surrounding erythema and warmth, no appreciable fluctuance or discharge noted MSK: no evidence of trauma, right hip with good range of motion, no tenderness palpation, no deformities appreciated. NEURO: moves all extremities equally ec2 12:23 11:53 ED course: Patient arrives today due to concern for skin lesion as well as right ec2 hip pain. Examination remarkable for well-appearing individual who has an obvious infection of the left midforearm. Will obtain a septic work-up given the patient's tachycardia, will give the patient vancomycin for empiric coverage. Currently patient meets strictly tachycardia from the insertion right ear however does not meet a second SIRS criteria at this time. Additionally obtain a radiograph of the right hip.. ec2 17:06 14:13 ec2 bd 17:18 11:53 Accucheck ordered. ec2 ll1
[2023-07-11] MEDS ORDERED: MAGNESIUM SULFATE 1 gm IVPB 1 GM/100 ML BAG IV ONE (14:37)
[2023-07-11] MEDS ORDERED: NA CHLORIDE 0.9% 100 ML ONE (14:37)
[2023-07-11] MEDS ORDERED: POTASSIUM CL SA 10 MEQ TAB PO ONE (14:37)
[2023-07-11] MEDS ORDERED: CEFEPIME 1 GM/VIAL ONE (14:38)
--- NOTE | 2023-07-11 15:37 | RAD REPORT ---
EXAM DESCRIPTION: RAD - Pelvis - 07/11/2023 1:45 pm CLINICAL HISTORY: PAIN COMPARISON: No comparisons TECHNIQUE: Single AP view of the pelvis. FINDINGS: The visualized pelvic ring is intact. No suspicious osseous lesions. Mild right hip joint degenerative changes. No erosions of the hip joints. Other pelvic joints are unremarkable. Visualized aspects of the abdomen and soft tissues are unremarkable. IMPRESSION: No acute osseous abnormality of the bony pelvis. Mild right hip joint degenerative villalba ges.
--- NOTE | 2023-07-11 15:42 | P.HP ---
Certification for Inpatient Patient admitted to: Inpatient With expected LOS: >2 Midnights Patient will require the following post-hospital care: None Practitioner: I am a practitioner with admitting privileges, knowledge of patient current condition, hospital course, and medical plan of care. Services: Services provided to patient in accordance with Admission requirements found in Title 42 Section 412.3 of the Code of Federal Regulations Patient History Date of Service: 07/11/23 Reason for admission: sepsis 2/2 cellulitis of the left forearm History of Present Illness: Grecia Donnelly is a pleasant 82 year old female with Pmhx ascending aortic aneurysm; High Cholesterol; Hypertension; Sjogren's Syndrome; Thyroid problems who presents to the ED with c/o left forearm swelling. She reports having a skin biopsy done last week and this weekend this area has swollen and discolored. Her is at the bedside and is a good historian. She also c/o right hip pain and pelvic xray is negative. Initial vitals BP 169 / 92; Pulse 86; Resp 18; Temp 100.4(O); Pulse Ox 94% on R/A. Significant labs WBC 18, H?H 7.7/25.4, Platelets 51, K 3.1, GFR 67, Lactic acide 1.5. EKG atrial fibrillation, rate of 99, no acute ST segment elevations, intervals are pertinent for QTc prolongation at 551. She was not told of Afib in the past, will use tele for monitoring. Grecia will be admitted to hospitalist service for further evaluation and treatment with IV antibiotics. Allergies No Known Allergies Allergy (Unverified 05/27/17 23:06) Home Medications: Amlodipine [Norvasc*] 5 mg PO DAILY 05/27/17 Ezetimibe 10 mg PO DAILY 05/27/17 Hydroxychloroquine [Plaquenil*] 200 mg PO DAILY 05/27/17 Thyroid,Pork [[place] Thyroid] 90 mg PO DAILY 05/27/17 Aspirin [Aspirin EC 325 MG] 1 tab PO DAILY 03/16/20 Vit C/E/Zn/Coppr/Lutein/Zeaxan [Preservision Areds 2 Softgel] 1 cap PO BID 03/16/20 - Past Medical/Surgical History Diabetic: No -: Sjogren's ds -: ascending aortic aneurysm -: HTN -: Hyperlipidemia -: breast reductions -: appendectomy -: tummy tuck -: hysterectomy -: lump removed from left breast - Family History Father -: Cancer Notes: bladder ca Mother Notes: no medical hx - Social History Alcohol use: No CD- Drugs: No Caffeine use: No Review of Systems Musculoskeletal: Arm Pain (left forearm ) Physical Examination - Physical Exam General: Alert, In no apparent distress, Oriented x3 HEENT: Atraumatic, Normocephalic, PERRLA Neck: Supple, 2+ carotid pulse no bruit, JVD not distended Respiratory: Clear to auscultation bilaterally, Normal air movement Cardiovascular: No edema, Normal pulses, Regular rate/rhythm, Normal S1 S2 Capillary refill: <2 Seconds Gastrointestinal: Normal bowel sounds, Soft and benign Musculoskeletal: Swelling (left forearm), Erythema (left forearm) Integumentary: Skin breakdown (left forearm), Tenderness/swelling (left forearm) Neurological: Normal speech, Normal strength at 5/5 x4 extr, Normal tone - Studies Laboratory Data (last 24 hrs) 07/11/23 07/11/23 07/11/23 13:20 13:20 13:20 WBC 18.00 H Hgb 7.7 L Hct 25.4 L Plt Count 51 L PT 14.2 H INR 1.29 APTT 29.8 Sodium 138 Potassium 3.1 L BUN 12 Creatinine 0.86 Glucose 116 H Total Bilirubin 1.9 H AST 39 H ALT 16 Alkaline Phosphatase 78 Assessment and Plan - Plan Assessment and Plan Sepsis d/t cellulitis of the Left forearm WBC 18, lactic acid 1.5 cefepime and vancomycin given in the ED and will continue gentle IVF blood culture pending Thrombocytopenia Platelets 51 SCD for now monitor in AM labs Afib Prolonged QT EKG : QT/QTC 430/551 avoid zofran, phenergan, and antibiotics that prolong Afib noted on EKG, on tele for evaluation Hypokalemia K 3.1 replaced in ED monitor in AM labs Anemia H/H 7.7/25.4 monitor in AM labs transfuse when hgb <7 Right hip pain Pelvic xray read states "No acute osseous abnormality of the bony pelvis. Mild right hip joint degenerative changes" control pain hx ascending aortic aneurysm no know measurement will follow up next year for the yearly visit hx Sjorgen's syndrome Restart home regimen when appropriate DVT ppx: SCD d/t thrombocytopenia Full code LOS 3-4 days Discharge Plan: Home Plan to discharge in: 48 Hours - Advance Directives Does patient have a Living Will: Yes Does patient have a Durable POA for Healthcare: No Time Spent Managing Pts Care (In Minutes): 55
[2023-07-11] MEDS ORDERED: TRAMADOL HCL 50 MG TAB PO PRN (15:44)
[2023-07-11 19:02] LABS: Anisocytosis 1+; Blood Morphology Comment NOTED (NOT SEEN); Platelet Estimate DECR; Poikilocytosis 1+; White Blood Cell Scan OK (OK)
[2023-07-11] MEDS ORDERED: MORPHINE 2 MG/ML SYR IV PRN (19:54)
[2023-07-11] MEDS ORDERED: CEFEPIME 2 GM in NA CHLORIDE 0.9% 100 ML IV SCH (21:00)
[2023-07-12 03:20] LABS: Absolute Lymphocytes (CBC) 4.1 K/uL (0.7-4.9); Hematocrit 23.5 % (36.0-45.0); Lymphocytes % 25.2 % (15.3-44.8); MCV 78.6 fL (80-100); MPV 8.4 fL (7.6-11.3); RBC Red Blood Cell Count 2.98 M/uL (3.86-4.86)
[2023-07-12 03:25] LABS: Platelets 50 thou/uL (152-406)
[2023-07-12 03:31] LABS: Magnesium 2.5 mg/dL (1.6-2.4); Potassium 3.4 mEq/L (3.5-5.1)
[2023-07-12] MEDS ORDERED: NA CHLORIDE 0.9% 250 ML IV SCH (05:00)
--- NOTE | 2023-07-12 08:58 | RAD REPORT ---
EXAM DESCRIPTION: USExtrem Venous W Compress Bil07/12/2023 8:32 am CLINICAL HISTORY: Leg swelling COMPARISON: none FINDINGS: The common femoral, superficial femoral, greater saphenous, popliteal and posterior tibial veins bilaterally are compressible and demonstrate augmentation. Doppler demonstrates good flow. 1.5 centimeter right Simon's cyst Grayscale, color and spectral analysis performed on all vessels IMPRESSION: No evidence of deep venous thrombosis involving either lower extremity. 1.5 centimeter right Simon's cyst
[2023-07-12] MEDS ORDERED: POTASSIUM CL SA 10 MEQ TAB PO ONE ×2 (09:00→17:10)
[2023-07-12] MEDS ORDERED: LOSARTAN POTASSIUM 50 MG TABLET PO SCH (09:00)
[2023-07-12] MEDS: LEVOTHYROXINE SOD 0.075 MG TAB PO SCH (09:22)
[2023-07-12] MEDS ORDERED: NA CHLORIDE 0.9% 250 ML ONE (09:43)
--- NOTE | 2023-07-12 13:00 | CON ---
Date of Consultation: 07/12/2023 Reason For Service: Cellulitis and abscess on the left forearm. History Of Present Illness: This is the case of an 82-year-old patient, admitted to the hospital for multiple problems. She is thrombocytopenic. She is also anemic with hemoglobin of 6, and also she comes with what looks like cellulitis and abscess in the left forearm. She stated that recently, she had a biopsy by hat blocker and then after that developed the swelling of the left forearm and zhen t developed into tenderness. She denies any trauma in that region and the family members claimed zhen t the pathology from the skin biopsy came back negative for cancer, although I do not have that infor mation at this moment. Allergies: NONE. Past Medical History: Medical problems include atrial fibrillation, thrombocytopenia, anemia. Throm bocytopenia numbers are 50 platelets. Medical problems include Sjogren's disease, ascending aortic a neurysm, hypertension, hyperlipidemia. Medications: Include Norvasc, ezetimibe, hydrochloroquine, thyroid medications, aspirin, vitamin C a nd E. Past Surgical History: Include breast reduction, appendectomy, abdominoplasty, hysterectomy, lumpect eliud of left breast, and recent I and D of the perineal abscess. Family History: Includes father with bladder cancer. Social History: She does not smoke. She does not drink alcohol. Review of Systems: Left arm pain, malaise, weakness. Physical Examination: General: The patient is awake, alert. HEENT: Pupils are equal and reactive. Anicteric. Neck: Supple. Chest: Clear. Heart: S1, S2. Abdomen: Soft and depressible. No guarding or rebound. No peritoneal signs. Extremities: Over the left forearm, the patient has area of tenderness about 7 x 7 cm. It did have the appearance of an infected hematoma with abscess. In the middle of this is about 1 cm necrotic wo und and that is the area where the patient had a biopsy done before. Good radial pulses present. Laboratory Data: Blood work shows WBC count of 18, but hemoglobin of 7.7, came down to 6.9, platelet s of 50. INR is 1.29. Potassium 3.4, BUN is 18, creatinine is 1.07. Extremity Doppler interpreted by Dr. Griffin as no evidence of deep vein thrombosis in bilateral lower extremities. Assessment: An 82-year-old patient with cellulitis and abscess of the left forearm, probably an infe cted hematoma. Knowing that her platelets is 50 and hemoglobin of 6, maybe that when the biopsy was done, there was some bleeding associated with it and eventually developed into infected hematoma. We going to do an I and D of that region. Benefits, alternatives, and risks fully explained to her, martha ritter, and , which include, but not limited to infection, bleeding, damage to adjacent struct ures, anesthesia complication, especially bleeding, hematoma, NH, and even . She also understan ds this may not relieve symptoms. She may require wound care. At this moment, we are trying to repl faustino her hemoglobin in case it bleeds on the I and D, at least we are not in the lower 6. When she is medically better, we are going to proceed with an I and D. Discussed that with the primary doctor. She has so many issues at this moment. They prefer her not to be taken to the OR, so I am going to have to do a limited I and D here at bedside and then eventually if she get better and she needs more , we will proceed accordingly. EUNICE/HERB Voice ID: [id number] Report ID: [id number]
[2023-07-12] MEDS: VANCOMYCIN 1 GM in NA CHLORIDE 0.9% 250 ML IVPB SCH (13:20)
[2023-07-12] MEDS ORDERED: NA CHLORIDE 0.9% 100 ML ONE (14:22)
[2023-07-12 15:26] LABS: Specific Gravity 1.029 (1.005-1.030); Urine Bacteria <20 /HPF (<20); Urine Bilirubin NEGATIVE (Negative); Urine Blood 2+ (Negative); Urine Clarity Extremely Turbid (Clear); Urine Color Yellow (Yellow); Urine Crystals Unidentified Few /HPF (None Seen); Urine Glucose TRACE (Negative); Urine Granular Casts >20 /LPF (None Seen); Urine Mucus Slight /HPF (None Seen); Urine Protein 2+ (Negative); Urine Urobilinogen Normal (Normal); Urine WBC Clump Occasional /HPF (None Seen)
--- NOTE | 2023-07-12 18:09 | CON ---
Date of Consultation: 07/12/2023 Reason For Consultation: Atrial fibrillation. History Of Present Illness: An 82-year-old female with history of dyslipidemia, hypertension, Sjogre n syndrome, ascending aortic aneurysm, and dyslipidemia, presented after having an infection and swel ling of her left forearm, and she was found to be in atrial fibrillation with rapid ventricular respo nse since I was consulted. Past Medical History: As outlined above in the HPI. Medications: Refer to reconciliation sheet for detailed list. Allergies: SULFA. Family History: No premature coronary artery disease or cancer. Social History: Does not smoke or drink. Does not use any drugs. Review of Systems: All systems reviewed and they were negative except as mentioned in the HPI. Physical Examination: Vital Signs: Reviewed. Head and Neck: Pupils are equal and reactive to light. Intact eye movements. No JVD. No cervical lymphadenopathy. Neck is supple. Thyroid is not enlarged. Lungs: Clear to auscultation bilaterally. No rhonchi, wheezing, or crackles. No accessory muscle u se. Heart: Irregularly irregular. No extra sounds. Abdomen: Soft, nontender. Bowel sounds positive. No organomegaly. No masses or hernia. No rigidi ty or rebound. Extremities: No edema, clubbing, or cyanosis. Intact pulses. Skin: No rash. Neurologic: Alert, awake, oriented x3. No acute focal deficits appreciated. Lymph Nodes: No cervical or inguinal lymphadenopathy. Investigations: Labs were reviewed. Assessment And Recommendations: 1.Atrial fibrillation with slightly prolonged QTc. Start her on metoprolol 25 mg twice a day by ness th. Adjust the dose as needed and she needs stroke prevention. Recommend low-dose Eliquis 2.5 mg tw ice a day. 2.Hypertension. Blood pressure is borderline. Will improve further with . SR/MODL Voice ID: [id number] Report ID: [id number]
--- NOTE | 2023-07-12 19:45 | PN ---
Subjective: Patient was seen this morning for followup. Yesterday she was brought into emergency ro om. She really does not know exactly why she came into emergency room and could not tell me any defi nite reason. After she arrived in the emergency room, she was evaluated and admitted to the hospital . Unfortunately ER physician admitted her to the hospitalist and did not recognize that she was my p atient and hospitalist team also did not recognize that she was my patient until this morning when I saw her this morning for the followup. I have reviewed all the workup done in the hospital so far. When I saw her this morning she was lying in bed, not in distress. Physical Examination: Vital Signs: Reviewed. This morning, temperature 97.8, pulse 78, respiratory rate 18, blood pressur e 135/57. HEENT: Unremarkable. Lungs: Clear to auscultation. Heart: Sounds normal. Abdomen: Soft. Bowel sounds normal. No guarding, rigidity, tenderness, distention. Extremities: No leg edema. Right medial thigh upper 2/3 has mild to moderate soft tissue swelling w ith pink discoloration of the skin and warm to touch. No open wound on the right thigh. Left forear m has about 5 cm area of soft tissue swelling with a scab in the middle and this is slightly raised. No discharge or bleeding. Skin over this is dark pink in color. Skin: The patient has superficial stage II decubitus, approximately 2 cm x 0.5 cm in size left inner buttock. Laboratory Data: White count 16.1, hemoglobin 6.9, platelets 50. Sodium 140, potassium 3.4, chlorid e 112, bicarb 23, BUN 18, creatinine 1.07, glucose 118. Impression: 1.Cellulitis, right leg and left forearm. 2.Rule out sepsis. 3.Anemia. 4.Hypothyroidism. 5.Decubitus ulcer, stage II, left buttock. Plan: We will go ahead and continue antibiotic which is cefepime and vancomycin per order. Egg crat e was ordered. Change position every 2 hours from [id number] and [id number]. Consult hematolo gist, Dr. Shepherd, for anemia and thrombocytopenia problem and 2 units of PRBC blood transfusion was ord ered. We will follow up on post transfusion hemoglobin. The patient denies any blood in stool or bl ack stool and our hospital lab does not do any stool guaiacs, so we will not be able to perform any s uch studies. Air mattress was ordered. Fall precaution was ordered. We will get a venous Doppler d one on her leg to rule out DVT. When I examined her, her heart rhythm was irregular and I checked [facility] school bus technician. She had some premature ventricular contractions from time to time, but afte r I talked to the school bus technician, the patient had a brief episode of atrial fibrillation and at that time, cardiology consultation was requested. I will see her tomorrow for followup. FIDELIA/MODL Voice ID: [id number] Report ID: [id number]
[2023-07-12 20:06] LABS: Hematocrit 28.2 % (36.0-45.0)
[2023-07-12] MEDS: CEFEPIME 2 GM in NA CHLORIDE 0.9% 100 ML IV SCH (21:36)
[2023-07-13 02:58] LABS: Absolute Lymphocytes (CBC) 4.6 K/uL (0.7-4.9); Hematocrit 27.8 % (36.0-45.0); Lymphocytes % 29.4 % (15.3-44.8); MCV 82.9 fL (80-100); MPV 8.7 fL (7.6-11.3); RBC Red Blood Cell Count 3.36 M/uL (3.86-4.86)
[2023-07-13 02:59] LABS: Platelets 35 thou/uL (152-406)
[2023-07-13 03:23] LABS: Albumin 2.3 g/dL (3.4-5.0); Bilirubin Total 1.1 mg/dL (0.2-1.0); Magnesium 2.1 mg/dL (1.6-2.4); Phosphorus 2.1 mg/dL (2.5-4.9); Potassium 4.1 mEq/L (3.5-5.1); Protein, Total 5.4 g/dL (6.4-8.2)
[2023-07-13 03:29] LABS: Thyroid Stimulating Hormone 11.8 uIU/mL (0.358-3.740)
[2023-07-13] MEDS: LEVOTHYROXINE SOD 0.075 MG TAB PO SCH (06:24)
[2023-07-13] MEDS: POTASS/SODIUM PHOSPHATE 1 PKT POWD.PACK PO SCH ×3 (06:24→08:25)
[2023-07-13] MEDS ORDERED: CALCIUM GLUCONATE 1 GM IVPB 1 GM/50 ML BAG IV ONE (07:30)
[2023-07-13] MEDS: METOPROLOL TAR 25 MG TAB PO SCH ×2 (08:19→21:27)
--- NOTE | 2023-07-13 09:19 | ECHO ---
HEIGHT: 5 ft 5 in WEIGHT: 116 lb 0 oz DATE OF STUDY: 07/12/[address]: Cleve Arreaga MD 2-DIMENSIONAL: YES M.MODE: YES DOPPLER: YES COLOR FLOW: YES TDS: PORTABLE: DEFINITY: BUBBLE STUDY: DIAGNOSIS: ATRIAL FIBRILLATION WITH RAPID VENTRICULAR RESPONSE CARDIAC HISTORY: CATHERIZATION: SURGERY: PROSTHETIC VALVE: PACEMAKER: MEASUREMENTS (cm) DIASTOLIC (NORMALS) SYSTOLIC (NORMALS) IVSd 0.8 (0.6-1.2) LA Diam 2.2 (1.9-4.0) LVEF 57% LVIDd 4.3 (3.5-5.7) LVIDs 3.0 (2.0-3.5) %FS 30% LVPWd 0.8 (0.6-1.2) Ao Diam 3.3 (2.0-3.7) 2 DIMENSIONAL ASSESSMENT: RIGHT ATRIUM: NORMAL LEFT ATRIUM: NORMAL RIGHT VENTRICLE: NORMAL LEFT VENTRICLE: NORMAL TRICUSPID VALVE: MILD TRICUSPID REGURGITATION MITRAL VALVE: MILD MITRAL REGURGITATION PULMONIC VALVE: MILD PULMONIC INSUFFICIENCY AORTIC VALVE: MODERATE AORTIC INSUFFICIENCY PERICARDIAL EFFUSION: NONE AORTIC ROOT: NORMAL LEFT VENTRICULAR WALL MOTION: NORMAL DOPPLER/COLOR FLOW: SEE BELOW COMMENTS: 1. NORMAL LEFT VENTRICULAR EJECTION FRACTION 55-60% WITH NORMAL WALL MOTION 2. MODERATE AORTIC INSUFFICIENCY 3. MILD MITRAL REGURGITATION, TRICUSPID REGURGITATION, PULMONIC INSUFFICIENCY 4. NORMAL WALL MOTION 5. MODERATE PULMONARY HYPERTENSION WITH RIGHT VENTRICULAR SYSTOLIC PRESSURE OF 50-55 mmHg TECHNOLOGIST: MANNY FLETCHER
[2023-07-13] MEDS ORDERED: LIDOCAINE 1% MPF 30 ML VIAL IJ ONE (14:00)
[2023-07-13] MEDS ORDERED: LIDOCAINE 2% IJ ONE (14:00)
--- NOTE | 2023-07-13 14:10 | P.BOP ---
Preoperative diagnosis: Left forearm abscess/infected hematoma Postoperative diagnosis: same Primary procedure: Incision and drainage of left forearm abscess 3x3cm Estimated blood loss: <1cc Specimen: culture Findings: infected hematoma Anesthesia: Local Complications: None Transferred to: Other Condition: Good
--- NOTE | 2023-07-13 15:34 | OP ---
Surgeon: Chris Willard MD Preoperative Diagnoses: Left forearm abscess, infected hematoma, anemia, thrombocytopenia. Postoperative Diagnoses: Left forearm abscess, infected hematoma, anemia, thrombocytopenia. Procedure: Incision and drainage of left forearm abscess. Estimated Blood Loss: Less than 1 cc. Specimen: Culture. Finding: Infected hematoma. Anesthesia: Local anesthetic. Indication: This is a case of an 82-year-old patient who recently had a procedure on the left arm, d eveloped cellulitis of that area, possible infected hematoma. Patient also found to have thrombocyto penia and anemia for some other unrelated reasons apparently, and I was called to see if I can do the I and D at bedside since the patient is not the best candidate for OR. The patient agrees, though a nd the OR was kind enough to supply instrument and the personnel to come to the floor and do this pro cedure. So we appreciate [facility] for that gesture. The patient is happy with it. The benefits, alterna tives, and risks of an I and D of an abscess fully explained, which include, but not limited to, infe ction, bleeding, damage to adjacent structures, anesthesia complication, nonhealing wound, OR, and ev en . She also understands this might not relieve any symptoms. She might need more than one hayes rgical intervention. She understood, signed a consent. Description Of Procedure: The left arm was prepped and draped in the usual sterile fashion. A time- out was called. Local anesthesia was applied followed by sharp incision of the skin. Immediately, w e noticed a vertical infected hematoma with multiple blood clots on the area of about 3 x 3 cm subcut aneously. The clots were removed. The area was profusely irrigated. Hemostasis was obtained. Cult ures were done previously and then the area was packed with iodoform quarter of an inch. The patient tolerated the procedure well. Patient remained in the floor under stable condition. Sponge counts and instrument counts were correct. EUNICE/HERB Voice ID: [id number] Report ID: [id number]
[2023-07-13 17:31] VITALS: BMI 19.3
--- NOTE | 2023-07-13 20:27 | PN ---
Date of Progress Note: 07/13/2023 Subjective: Patient was seen this morning for followup. No new complaints or problems reported by h er. Lying in bed, not in distress. Her son-in-law was present with her in room at bedside. Objective: Vital Signs: Reviewed. HEENT: Unremarkable. Lungs: Clear to auscultation. Heart: Sounds normal. Abdomen: Soft. Bowel sounds normal. No guarding, rigidity, tenderness, distention. Extremities: Right upper medial thigh swelling is better today than yesterday. Warmness and pink di scoloration from this medial thigh is also better than yesterday. Left forearm area of redness and s welling is slightly less today compared to yesterday. Laboratory Data: White count 15.5, hemoglobin 8.7, platelets 35. Sodium 139, potassium 4.1, chlorid e 112, bicarb 22, BUN 18, creatinine 0.94, glucose 105, calcium 6.7. TSH 11.8. Impression: 1.Cellulitis, right leg and left arm. 2.Thrombocytopenia. 3.Anemia. 4.Hypocalcemia. 5.Hypothyroidism. 6.Paroxysmal atrial fibrillation. Plan: We will go ahead and discontinue losartan and start her on metoprolol 12.5 mg 2 times a day. For patient's atrial fibrillation, she will benefit from Eliquis, but at this point considering throm bocytopenia problem, risk of bleeding is higher with the use of anticoagulation medication, so we mary l not start any such medication at this time. Cardiology consultation is appreciated. We are waitin g on Hematology consultation. We will repeat blood work tomorrow. I am not sure if she is taking he r levothyroxine regularly at home or not because of her impaired memory problem. I have concerns abo ut her compliance with medication and I informed patient's son-in-law that I would like for him to ch eliana on her home medication to see whether she is taking levothyroxine regularly or not. She was also told to discontinue hydroxychloroquine few months ago and unfortunately during her last office visit we noted that she was still taking that medication and I had asked her to stop it 1 more time and so n-in-law will check on it to make sure that she is not taking that because of possibility of bone mar row suppression type of side effect from that medication. I have informed the patient that my recomm endation is for her not to manage her own medications and let her family help manage her medications to avoid any mistakes related to medications. I will see her tomorrow for followup, possible dischar ge to go home in next 1 or 2 days. FIDELIA/MODL Voice ID: [id number] Report ID: [id number]
[2023-07-13] MEDS: CEFEPIME 2 GM in NA CHLORIDE 0.9% 100 ML IV SCH (21:27)
[2023-07-13] MEDS: VANCOMYCIN 1 GM in NA CHLORIDE 0.9% 250 ML IVPB SCH (22:45)
[2023-07-14 02:00] VITALS: O2SAT 94
[2023-07-14] MEDS: LEVOTHYROXINE SOD 0.075 MG TAB PO SCH (05:54)
[2023-07-14 07:03] LABS: Absolute Lymphocytes (CBC) 5.3 K/uL (0.7-4.9); Hematocrit 32.1 % (36.0-45.0); Lymphocytes % 34.8 % (15.3-44.8); MCV 83.6 fL (80-100); MPV 9.4 fL (7.6-11.3); Platelets 57 thou/uL (152-406); RBC Red Blood Cell Count 3.84 M/uL (3.86-4.86)
[2023-07-14 07:14] LABS: Magnesium 2.3 mg/dL (1.6-2.4); Phosphorus 2.5 mg/dL (2.5-4.9)
[2023-07-14 08:16] LABS: Anisocytosis 2+; Blood Morphology Comment NOTED (NOT SEEN); Dohle Bodies PRESENT; Platelet Estimate DECR
[2023-07-14 08:41] VITALS: BP 152/88; TEMP 97.2
[2023-07-14] MEDS: METOPROLOL TAR 25 MG TAB PO SCH (10:40)
--- NOTE | 2023-07-14 19:25 | DS ---
Date of Discharge: 07/14/2023 Disposition: Discharged to go home. Physical Examination: HEENT: Unremarkable. Lungs: Clear to auscultation. Heart: Sounds normal. Abdomen: Soft. Bowel sounds normal. No guarding, rigidity, tenderness, distention. Extremities: No leg edema. Right upper medial thigh swelling and redness has significantly improved and there is very minimal area of swelling and very minimal redness, but overall this is significant ly better than before. Discharge Medications And Instructions: 1.Continue all prior home medications except stop aspirin and do not take any Aleve, Motrin, ibuprof en, naproxen type of medication. 2.Continue levothyroxine and ezetimibe taking before. 3.Stop losartan. 4.Start metoprolol 25 mg, take 1 tablet by mouth 2 times a day. 5.Take Augmentin 500 mg 2 times a day for 1 week. 6.Follow up at my office next week. 7.Follow with Dr. Willard next week. 8.Dressing changes to left forearm as per instruction from Dr. Willard. 9.Follow up with Dr. Shepherd in 1 to 2 weeks and follow up with petroleum products sales representative Dr. Ashley per his instructi on and the patient's family will call his office to schedule appointment for paroxysmal atrial fibril lation. Final Diagnoses: 1.Cellulitis, right lower extremity and left upper extremity. 2.Thrombocytopenia. 3.Anemia. 4.Hypothyroidism. 5.Hyperlipidemia. 6.Hypertension. 7.Paroxysmal atrial fibrillation. 8.Dementia. Laboratory Data: Today, white count 15.3, which is better than before, hemoglobin 9.8, platelets 57. Sodium 137, potassium 4, chloride 110, bicarb 20, BUN 22, creatinine 0.98, glucose 100, calcium 7.8 . Hospital Course: This is an 82-year-old very pleasant female patient, admitted to the hospital with cellulitis of right lower extremity, left upper extremity, thrombocytopenia, and anemia. Please see dictated H and P for more information. After the patient was admitted to the hospital, general surge on, Dr. Willard was consulted and we also consulted perianesthesia nurse Dr. Shepherd as well as petroleum products sales representative, Hitesh Benavidez, was consulted for paroxysmal atrial fibrillation. The patient had anemia problem and requ ired 2 units of PRBC blood transfusion and hemoglobin has remained stable after that. Her lowest isidra telet count was 35. No evidence of any bleeding and did not require any platelet transfusion and her platelet count has started to improve on its own as noted on today's blood work. Dr. Willard did i ncision and drainage and debridement on the left forearm area. It turned out to be infected hematoma . Overall, the patient's condition has remained stable. Her cellulitis from right upper medial thig h has significantly improved. Echocardiogram was done showing normal ejection fraction and Dr. Austin stovall from Cardiology evaluated her, recommended for her to take metoprolol and Eliquis, but because of t he low platelet count, I have not started Eliquis and we will consider that on an elective outpatient basis depending on her condition. The patient sees petroleum products sales representative, Dr. Ashley, on outpatient basis and her family is going to schedule appointment for her to go back and see him. Today, she was discharge d to go home in stable condition with above-mentioned medication and instructions. FIDELIA/MODL Voice ID: [id number] Report ID: [id number]
[2023-07-14] MEDS ORDERED: VANCOMYCIN 1 GM in NA CHLORIDE 0.9% 250 ML IVPB SCH (22:00)
== END 2023-07-14 11:45 | disposition home or self-care (01) | DRG 872 ==
LOC: ER 11:18 → ERHOLD 15:20 → 2ND 17:20
PROVIDERS: ADMIT Internal Medicine; ATTEND Internal Medicine
PROC: 0J9H0ZZ Drainage of Left Lower Arm Subcutaneous Tissue and Fascia, Open Approach (ICD-10-PCS; principal; 2023-07-13)
DX: A41.9 Sepsis, unspecified organism (principal); L03.114 Cellulitis of left upper limb; L02.414 Cutaneous abscess of left upper limb; L03.115 Cellulitis of right lower limb; E87.6 Hypokalemia; I10 Essential (primary) hypertension; I48.0 Paroxysmal atrial fibrillation; D64.9 Anemia, unspecified; E03.9 Hypothyroidism, unspecified; E83.51 Hypocalcemia; D69.6 Thrombocytopenia, unspecified; M35.00 Sjogren syndrome, unspecified; E78.00 Pure hypercholesterolemia, unspecified; L89.322 Pressure ulcer of left buttock, stage 2; F03.90 Unspecified dementia, unspecified severity, without behavioral disturbance, psychotic disturbance, mood disturbance, and anxiety; R94.31 Abnormal electrocardiogram [ECG] [EKG]; Z88.2 Allergy status to sulfonamides; Z90.49 Acquired absence of other specified parts of digestive tract; Z79.82 Long term (current) use of aspirin; Z79.899 Other long term (current) drug therapy; Z90.710 Acquired absence of both cervix and uterus; Z79.890 Hormone replacement therapy
CPT/HCPCS: 36415; 36430; 72170; 80048; 80053; 80202; 81001; 83605; 83735; 84100; 84132; 84439; 84443; 85014; 85018; 85025; 85610; 85730; 86850; 86900; 86901; 86920; 87040; 87070; 87075; 87086; 87088; 87205; 93005; 93306; 93970; 96361; 96365; 96367; 96368; 96375; 97116; 97161; 97530; 99285; J0612; J0692; J2001; J2270; J2405; J3475; J7030; J7050; P9016

== ENCOUNTER 2023-09-07 18:44 | Inpatient (IN) | payer OTHER ==
[2023-09-07] MEDS ORDERED: FUROSEMIDE 20 MG/ 2ML VIAL IV ONE (19:08)
[2023-09-07] MEDS ORDERED: PIPER TAZO 3.375 GM in NA CHLORIDE 0.9% 100 ML IV ONE (20:00)
[2023-09-07 20:32] LABS: Absolute Lymphocytes (CBC) 4.3 K/uL (0.7-4.9); Hematocrit 24.1 % (36.0-45.0); Lymphocytes % 13.9 % (15.3-44.8); MCV 78.1 fL (80-100); MPV 8.4 fL (7.6-11.3); Platelets 58 thou/uL (152-406); RBC Red Blood Cell Count 3.09 M/uL (3.86-4.86)
[2023-09-07 21:10] LABS: Albumin 2.2 g/dL (3.4-5.0); Bilirubin Total 1.1 mg/dL (0.2-1.0); Protein, Total 5.8 g/dL (6.4-8.2)
[2023-09-07 21:11] LABS: Magnesium 2.2 mg/dL (1.6-2.4); Potassium 3.8 mEq/L (3.5-5.1); Thyroid Stimulating Hormone 9.43 uIU/mL (0.358-3.740)
[2023-09-08] LABS: Anisocytosis 2+; Blood Morphology Comment NOTED (NOT SEEN); Platelet Estimate DECR; Polychromasia 1+; Teardrop Cell 1+
[2023-09-08 03:19] LABS: Potassium 3.1 mEq/L (3.5-5.1)
--- NOTE | 2023-09-08 06:22 | HP ---
Date of Admission: 09/07/2023 Chief Complaint: Leg swelling and redness of leg, and weight gain. 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 Her last visit with oncologist was yesterday and treatment options that were given to her by oncologist, as I understand from the family, were: #1, no further treatment; or second option was chemotherapy; and third option was blood transfusion on as needed basis. The patient and family obviously have not made any treatment decision yet, but today she was brought into my office by the patient's daughter and son-in-law with significant bilateral leg swelling that is getting worse in last few days and weight gain also in last few days. The patient denies any fever, chills. She has some redness of the skin involving both lower extremities between knee and ankle. No fall. No injury. Denies any paroxysmal nocturnal dyspnea or orthopnea. The patient was in the wheelchair at office and after I evaluated her, decision was made to admit her to the hospital for further evaluation and management of this problem. Code Status: As per my discussion with the patient today at office in presence of her family member, the patient is a Full Code as per her decision. Allergies: TO SULFA AND TETANUS TOXOID. Medications: 1. Ezetimibe 10 mg p.o. daily. 2. Levothyroxine 75 mcg daily. 3. Metoprolol 25 mg daily. 4. New medication recently got started by neurologist was memantine 5 mg 2 times a day. Review of Systems: Constitutional: As mentioned above. Dermatology: As mentioned above. Musculoskeletal: As mentioned above. All other systems reviewed and negative. Past Medical History: Significant for hypertension, hyperlipidemia, hypothyroidism, dementia, pancytopenia, history of positive JHONNY, osteopenia, osteoarthritis at multiple sites, diverticulosis, impaired fasting glucose, peripheral vascular disease, right-sided carotid artery stenosis, recent diagnosis of CMML. Past Surgical History: Cataract surgery, thyroidectomy, hysterectomy, reduction mammoplasty, and liposuction as well as abdominoplasty in the past. Family History: Father , had abdominal aortic aneurysm and bladder cancer. Social History: Negative for smoking. Use of alcohol: Negative. Physical Examination: Vital Signs: Height 5 feet 5 inches, weight 132 pounds. Temperature 97.6, pulse 63, respiratory rate 18, blood pressure 150/72, oxygen saturation 96%. General: Awake, alert, oriented, not in distress. HEENT: Head atraumatic, normocephalic. Conjunctivae nonerythematous. Sclerae white. Mouth, no thrush or edema noted. Ears/Nose, no mass, lesion, discharge noted. Neck: Supple. No JVD, lymph nodes, bruit, thyromegaly noted. Lungs: Diminished air entry in both lower lung phipps with bibasilar rales. Heart: Normal heart sounds, no murmur or gallop. Abdomen: Soft, bowel sounds normal. No guarding, rigidity, tenderness, mass, hepatosplenomegaly, distention, or bruit noted. Extremities: The patient has grade 4 leg edema involving both lower extremities extending from her feet all the way to her upper thighs. Skin: Over both lower extremities between knee and ankle is red, warm to touch. There is no evidence of any open wound. Lymphatics: No lymph node enlargement in neck, supraclavicular, infraclavicular region. Neuro: No focal neurological deficit. Chest: Unremarkable. External Genitalia: Deferred. Rectal: Deferred. Laboratory Data: WBC 30.90, hemoglobin 7.3, platelets 58. Sodium 139, potassium 3.8, chloride 110, bicarb 23, BUN 25, creatinine 1.39, glucose 85. Liver function test unremarkable except AST 47. Impression: 1. Cellulitis, bilateral lower extremities. 2. Congestive heart failure. 3. Hypertension. 4. Hyperlipidemia. 5. Hypothyroidism. 6. Pancytopenia. 7. CMML. 8. Osteopenia. 9. Diverticulosis. 10. Impaired fasting glucose. 11. Peripheral vascular disease. 12. Right-sided carotid artery stenosis. 13. Generalized weakness. 14. Debility. 15. Osteoarthritis, multiple sites. Plan: We will go ahead and admit the patient to the hospital for further evaluation and management of this problem. The patient is appropriate for inpatient and is expected to spend 2 midnights in the hospital. We will start her on IV Zosyn for cellulitis of both lower extremities. Monitor her further response and if necessary make adjustment on antibiotics. For her congestive heart failure, her last echocardiogram was in July 2023. Results reviewed, had normal ejection fraction at that time. We will go ahead and repeat echocardiogram during this hospitalization considering her presenting symptoms and we will start her on Lasix 20 mg IV daily, starting today. Monitor intake, output, daily weight, electrolytes and renal function. For her hypothyroidism, her TSH level done. Continue her levothyroxine and make adjustment on that medication if it is necessary. For hyperlipidemia, we will continue her Zetia. For blood pressure, we will continue her metoprolol as prescribed. Details and plan of treatment discussed with her and her family. We will consult Physical Therapy to help ambulate, and fall precaution was ordered. FIDELIA/MODL Voice ID: [id number]
[2023-09-08] MEDS: PIPER TAZO 3.375 GM in NA CHLORIDE 0.9% 100 ML IV SCH ×2 (08:34→17:48)
[2023-09-08] MEDS: LEVOTHYROXINE SOD 0.075 MG TAB PO SCH (08:35)
[2023-09-08] MEDS: METOPROLOL XL 25 MG TAB PO SCH (08:35)
[2023-09-08] MEDS: FUROSEMIDE 20 MG/ 2ML VIAL IV SCH (08:36)
[2023-09-08] MEDS ORDERED: POTASSIUM CL SA 10 MEQ TAB PO ONE ×2 (09:00→19:31)
--- NOTE | 2023-09-08 11:15 | RAD REPORT ---
EXAM DESCRIPTION: RAD - Chest Single View - 09/08/2023 6:35 am CLINICAL HISTORY: 83 years Female, CHF COMPARISON: CT chest report from 04/29/2023. The images were unavailable for review. TECHNIQUE: Single portable x-ray view of the chest performed on 09/08/2023 at 6:29 AM FINDINGS: The lungs are well expanded. There is mild to moderate perihilar and bibasilar opacificati on with obscuration of the left hemidiaphragm. Findings may be due to pulmonary edema with a left ple ural effusion. A small right pleural effusion is not excluded. Multifocal pneumonia cannot be exclude d. There is no evidence of a pneumothorax. The cardiac silhouette is prominent and may be accentuated by the portable technique. The mediastinal contours are normal. No acute osseous abnormality is identified. No focal soft tissue abnormalities are seen. Lines and tubes: None. Free air: None identified, IMPRESSION: Mild to moderate perihilar and bibasilar opacification with obscuration of the left annie diaphragm. Findings may be due to pulmonary edema with a left pleural effusion and possible small rig ht pleural effusion. Multifocal pneumonia cannot be excluded. Electronically signed by: Lily Wilkins DO 09/08/2023 07:11 AM [place] SEN[place] Due to temporary technical issues with the PACS/Fluency reporting system, reports are being signed by the in house radiologist without review as a courtesy to ensure prompt reporting. The interpreting r adiologist is fully responsible for the content of the report.
--- NOTE | 2023-09-08 13:28 | ECHO ---
HEIGHT: 5 ft 5 in WEIGHT: 134 lb 3.2 oz DATE OF STUDY: 09/08/[address]: Cleve Arreaga MD 2-DIMENSIONAL: YES M.MODE: YES DOPPLER: YES COLOR FLOW: YES TDS: NO PORTABLE: YES DEFINITY: NO BUBBLE STUDY: NO DIAGNOSIS: CONGESTIVE HEART FAILURE CARDIAC HISTORY: CATHERIZATION: NO SURGERY: NO PROSTHETIC VALVE: NO PACEMAKER: NO MEASUREMENTS (cm) DIASTOLIC (NORMALS) SYSTOLIC (NORMALS) IVSd 1.0 (0.6-1.2) LA Diam 2.3 (1.9-4.0) LVEF 45-50% LVIDd 4.2 (3.5-5.7) LVIDs 3.3 (2.0-3.5) %FS 21% LVPWd 1.1 (0.6-1.2) Ao Diam 2.7 (2.0-3.7) 2 DIMENSIONAL ASSESSMENT: RIGHT ATRIUM: MILDLY DILATED LEFT ATRIUM: RIGHT VENTRICLE: NORMAL LEFT VENTRICLE: MILDLY REDUCED EF 45-50% TRICUSPID VALVE: MILD TRICUSPID REGURGITATION MITRAL VALVE: MILD MITRAL REGURGITATION PULMONIC VALVE: AORTIC VALVE: MILD AORTIC REGURGITATION PERICARDIAL EFFUSION: AORTIC ROOT: LEFT VENTRICULAR WALL MOTION: DOPPLER/COLOR FLOW: COMMENTS: 1. RIGHT VENTRICULAR PRESSURE 45 mmHg. 2. LEFT VENTRICLE EJECTION FRACTION MILDLY REDUCED 45-50%. 3. MILD MITRAL REGURGITATION. 4. MILD TRICUSPID REGURGITATION. 5. MILD AORTIC REGURGITATION. TECHNOLOGIST: Gian MERCER
[2023-09-08] MEDS: EZETIMIBE 10 MG TAB PO SCH (21:04)
--- NOTE | 2023-09-08 22:49 | PN ---
Date of Progress Note: 09/08/2023 Subjective: The patient was seen this morning for followup, lying in bed, not in any distress. Fito es any new complaints overnight. No shortness of breath, nausea, vomiting. No abdominal pain. Objective: Vital Signs: Reviewed. HEENT: Unremarkable. Lungs: Bilateral good equal air entry. Presence of basal rales. Not using any accessory muscles of respiration. Heart: Sounds normal. Abdomen: Soft. Bowel sounds normal. No guarding, rigidity, tenderness, or distention. Extremities: Bilateral leg edema present, but slightly better today than yesterday. Redness from tommy th lower extremities remains unchanged. Laboratory Data: Sodium 142, potassium 3.1, chloride 112, bicarb 23, BUN 25, creatinine 1.37, glucos e 95. Impression: 1.Cellulitis, bilateral lower extremities. 2.Congestive heart failure. 3.Hypokalemia. 4.Chronic kidney disease stage 3B. 5.Hypertension. 6.Hyperlipidemia. 7.Hypothyroidism. Plan: We will go ahead and continue current antibiotic, which is Zosyn. Continue IV Lasix. We will follow up on echocardiogram results. Replace potassium per electrolyte replacement protocol. Continue home medications. Physical Therapy to help ambulate the patient. I will see her tomorrow f or followup. FIDELIA/MODL Voice ID: [id number] Report ID: [id number]
[2023-09-09] MEDS: PIPER TAZO 3.375 GM in NA CHLORIDE 0.9% 100 ML IV SCH ×3 (00:33→16:29)
[2023-09-09 03:37] LABS: Absolute Lymphocytes (CBC) 2.1 K/uL (0.7-4.9); Hematocrit 21.3 % (36.0-45.0); Lymphocytes % 8.3 % (15.3-44.8); MCV 77.4 fL (80-100); Platelets 41 thou/uL (152-406); RBC Red Blood Cell Count 2.75 M/uL (3.86-4.86)
[2023-09-09 03:42] LABS: Magnesium 1.8 mg/dL (1.6-2.4); Potassium 3.9 mEq/L (3.5-5.1)
[2023-09-09] MEDS: LEVOTHYROXINE SOD 0.075 MG TAB PO SCH (05:49)
[2023-09-09] MEDS ORDERED: MAGNESIUM SULFATE 1 gm IVPB 1 GM/100 ML BAG IV ONE (06:26)
[2023-09-09] MEDS ORDERED: POTASSIUM CL SA 10 MEQ TAB PO ONE (09:00)
[2023-09-09] MEDS: FUROSEMIDE 20 MG/ 2ML VIAL IV SCH (09:16)
[2023-09-09] MEDS: METOPROLOL XL 25 MG TAB PO SCH (09:16)
[2023-09-09] MEDS ORDERED: NA CHLORIDE 0.9% 250 ML ONE (09:55)
--- NOTE | 2023-09-09 14:55 | PN ---
Date of Progress Note: 09/09/2023 Subjective: The patient was seen this morning for followup. She was lying in bed, not in distress. Her son-in-law was with her in the room. Denies any new complaints. Objective: Vital Signs: Reviewed. HEENT: Unremarkable. Lungs: Clear to auscultation. Heart: Sounds normal. Abdomen: Soft. Bowel sounds normal. No guarding, rigidity, tenderness, distention. Extremities: Bilateral leg edema has significantly improved and redness of skin between knee and foot also has improved to some extent. There is no open wound. Laboratory Data: White count 25.8, hemoglobin 6.4, platelets 41. Sodium 140, potassium 3.9, chloride 112, bicarb 21, BUN 26, creatinine 1.42, glucose 90, magnesium 1.8. Echocardiogram shows ejection fraction 45 to 50 percent. Mild mitral, tricuspid and aortic regurgitation. Impression: 1. Congestive heart failure, chronic, systolic, with acute exacerbation. 2. Anemia. 3. Thrombocytopenia. 4. Cellulitis, bilateral legs. Plan: We will go ahead and continue current antibiotics. Continue Lasix 20 mg IV daily. Patient has responded very well and monitor intake, output, daily weight. The patient's hemoglobin has dropped down to less than 7 and we will go ahead and give 2 units of PRBC blood transfusion, get post transfusion hemoglobin and I will see her tomorrow for followup. I did have a long discussion with the patient in presence of her son-in-law about different treatment options. Her oncologist that she sought day before admission to our hospital gave her information about her leukemia and informed her that option of either chemotherapy or frequent blood transfusion on an as-needed basis is what she has to keep in mind and her overall prognosis is poor. Now on top of her problem with leukemia, we have congestive heart failure, chronic kidney disease to deal with. I did bring up discussion regarding hospice care today and spend long time with the patient and her son-in-law discussing about different treatment option. Overall poor prognosis. We will not be able to cure her leukemia, but chemotherapy has its own side effect and she may have difficulty going through chemotherapy with her overall poor performance status and if she elects not to do chemotherapy and just blood transfusion on an as-needed basis, I am afraid that as the time goes the need for blood transfusion will become more and more frequent. Her quality of life and prognosis will continue to remain poor and this mean she will end up requiring hospital admission and blood transfusion on frequent basis if she likes to go through either route of chemotherapy or blood transfusion. So, we did bring up discussion regarding hospice. No blood transfusion just the comfort care measures only, then we can arrange for hospice care at home and keep her comfortable and I am really afraid that rapid downhill course is to be expected in that case and prognosis is poor with expected in less than 6 months probably lot sooner. All these details were discussed with her. She was visibly very upset about it, but we tried to explain her as clearly as we could in presence of family members. Tomorrow, I will have discussion with the patient again in presence of her daughter and son-in-law again. Plan is to possibly discharge her to go home tomorrow depending on her condition. FIDELIA/MODL Voice ID: [id number] Report ID: [id number] LEN
[2023-09-09] MEDS: EZETIMIBE 10 MG TAB PO SCH (20:25)
[2023-09-10] MEDS: PIPER TAZO 3.375 GM in NA CHLORIDE 0.9% 100 ML IV SCH ×3 (01:38→16:35)
[2023-09-10 04:02] LABS: Magnesium 1.9 mg/dL (1.6-2.4)
[2023-09-10] MEDS: LEVOTHYROXINE SOD 0.075 MG TAB PO SCH (05:39)
[2023-09-10] MEDS: METOPROLOL XL 25 MG TAB PO SCH (07:33)
[2023-09-10] MEDS: FUROSEMIDE 20 MG/ 2ML VIAL IV SCH (07:33)
--- NOTE | 2023-09-10 13:45 | PN ---
Date of Progress Note: 09/10/2023 Subjective: The patient was seen this morning for followup. No new complaints or problems reported by her. She was lying in bed, not in distress. Her son-in-law and daughter were present with her at bedside. Objective: Vital Signs: Reviewed. HEENT: Unremarkable. Lungs: Clear to auscultation. Heart: Sounds normal. Abdomen: Soft. Bowel sounds normal. No guarding, rigidity, tenderness, distention. Extremities: No leg edema. Skin: Redness from both lower extremity between knee and ankle area has improved over the period of last 2-3 days. Still has significant redness, but the warmness has definitely significantly gotten b thais. There is no open wound and there is no more leg swelling now. Laboratory Data: Yesterday after 2 units of blood transfusion, hemoglobin came back 10.3 yesterday e vening. There is no new labs today. Today's chemistry: Sodium 139, potassium 4, chloride 112, bica rb 21, BUN 25, creatinine 1.41, glucose 89, magnesium 1.9. Impression: 1.Chronic myelomonocytic leukemia. 2.Anemia. 3.Thrombocytopenia. 4.Congestive heart failure, chronic, systolic, with acute exacerbation. 5.Chronic kidney disease, stage 3B. 6.Hypothyroidism. 7.Hyperlipidemia. 8.Generalized weakness. 9.Debility. Plan: The patient is responding well to IV Zosyn. We will continue that. She received 2 units of P RBC blood transfusion yesterday and hemoglobin came up. I believe this reported hemoglobin after blo od transfusion is probably actually higher than what it is in reality. I am expecting her hemoglobin to be around 8.5 to 9 range or so. We will repeat another blood work tomorrow. I had a long discus edelmira once again today in presence of the patient's daughter and son-in-law regarding her diagnosis of CMML, congestive heart failure, and now on top of that we have significant generalized weakness and debility. She requires hands-on assistance even to get out of bed to go to the bathroom while in the hospital as she is extremely weak and not safe to ambulate. So, the discussion first question was w carolinaher she wants to consider hospice care or not with very poor prognosis with her CMML diagnosis and now on top of that, we have congestive heart failure to add on and significant generalized weakness and debility, and other question was whether she wants to go back home or go to shelter facil it. So after spending a significant amount of time and answering all the questions, finally the pat breezynt and family they all have decided to go home with the hospice care and choices of local hospice ike mitchell discussed and family has chosen [facility] hospice agency. The patient is having some difficult daiana e making decisions and processing all the information with her underlying dementia problem. Also ashlee ked with family and my explanation today that she understands her diagnosis and poor prognosis, and s he wants to go home now with hospice care. I communicated details with social work instructor and requested c onsultation from Social Service to help make arrangements. As soon as hospice arrangements get made, we will be able to discharge her to go home with the hospice. Hospice eligible diagnosis is CMML an d congestive heart failure. I spent about 50 minutes today. Discussed with the patient and family m gemini in the room and then separately with family members outside the room and another 15 minutes ti me spent with Social Service for care coordination. FIDELIA/MODL Voice ID: [id number] Report ID: [id number]
[2023-09-10 20:08] VITALS: BMI 22.3
[2023-09-10] MEDS: EZETIMIBE 10 MG TAB PO SCH (20:23)
[2023-09-11] MEDS: PIPER TAZO 3.375 GM in NA CHLORIDE 0.9% 100 ML IV SCH ×3 (00:26→16:05)
[2023-09-11] MEDS: LEVOTHYROXINE SOD 0.075 MG TAB PO SCH (05:10)
[2023-09-11] MEDS: FUROSEMIDE 20 MG/ 2ML VIAL IV SCH (09:22)
[2023-09-11] MEDS: METOPROLOL XL 25 MG TAB PO SCH (09:23)
[2023-09-11 10:03] LABS: Absolute Lymphocytes (CBC) 2.9 K/uL (0.7-4.9); Hematocrit 32.4 % (36.0-45.0); Lymphocytes % 8.6 % (15.3-44.8); MCV 80.8 fL (80-100); MPV 7.9 fL (7.6-11.3); Platelets 40 thou/uL (152-406); RBC Red Blood Cell Count 4.01 M/uL (3.86-4.86)
[2023-09-11 10:22] LABS: Potassium 3.7 mEq/L (3.5-5.1)
[2023-09-11 11:38] LABS: Platelet Estimate DECR; Smudge Cells PRESENT
[2023-09-11 11:39] LABS: Anisocytosis 1+; Blood Morphology Comment NOTED (NOT SEEN); Polychromasia 1+
[2023-09-11] MEDS ORDERED: FUROSEMIDE 20 MG/ 2ML VIAL IV ONE (12:00)
--- NOTE | 2023-09-11 12:25 | PN ---
Date of Progress Note: 09/11/2023 Subjective: The patient was seen this morning for followup. Her daughter and son-in-law, they were present in room with her. Vital signs reviewed. She denies any new complaints. No chest pain. No shortness of breath. No nausea, vomiting. Physical Examination: HEENT: Unremarkable. Lungs: Clear to auscultation. Heart: Sounds normal. Abdomen: Soft. Bowel sounds normal. No guarding, rigidity, tenderness, distention. Extremities: She has bilateral grade 1 to grade 2 pedal edema extending from her feet to her knees. This is something new today compared to yesterday. Yesterday, she did not have any leg swelling. Laboratory Data: Sodium 142, potassium 3.7, chloride 113, bicarb 22, BUN 27, creatinine 1.26, glucos e 83, magnesium 2. Her white count is 33.9, hemoglobin 10.1, platelets 44. Impression: 1.Cellulitis, bilateral lower extremities. 2.Chronic myelomonocytic leukemia. 3.Chronic systolic heart failure, with acute exacerbation. 4.Chronic kidney disease, stage 3B. 5.Hypothyroidism. Plan: We will go ahead and continue Lasix. She received 20 mg Lasix IV this morning, and I will giv e a second dose of 20 mg IV today. We will continue current IV antibiotic, which is Zosyn. After I saw her yesterday, Social Service did visit with the patient and talked to family as well and as the patient's family has selected [facility], Social Service did initiate the referral process. Once we get all these arrangements completed, plan is to discharge her to go home with the hospice ca re and hospice medical insurance verifier to take over her care. I did communicate all those details with her today and her family members and also family were made aware along with the patient, but upon dischar ge, I would like for the patient to discontinue her ezetimibe and also discontinue memantine. I will send prescriptions for Augmentin, furosemide, and potassium to her pharmacy, but future refills on a ll her medications should come from hospice agency and family to contact hospice for future refills a nd all these details were discussed with family as well today. The patient had some questions regard ing her life expectancy. Once again, we have discussed this for the past 2 days, but today she also had the same question and I did try to answer her as best as I could. Overall, prognosis is poor. FIDELIA/MODL Voice ID: [id number] Report ID: [id number]
[2023-09-11] MEDS: EZETIMIBE 10 MG TAB PO SCH (20:56)
[2023-09-12] MEDS: PIPER TAZO 3.375 GM in NA CHLORIDE 0.9% 100 ML IV SCH ×2 (01:13→07:36)
[2023-09-12 04:33] VITALS: O2SAT 94
[2023-09-12] MEDS: LEVOTHYROXINE SOD 0.075 MG TAB PO SCH (05:20)
[2023-09-12 07:09] VITALS: BP 140/66; TEMP 97.7
[2023-09-12] MEDS: FUROSEMIDE 20 MG/ 2ML VIAL IV SCH (07:35)
[2023-09-12] MEDS: METOPROLOL XL 25 MG TAB PO SCH (07:35)
[2023-09-12] MEDS ORDERED: POTASSIUM CL SA 10 MEQ TAB PO ONE (09:00)
--- NOTE | 2023-09-12 22:22 | DS ---
Date of Discharge: 09/12/2023 Disposition: Discharged to go home with hospice care. Hospital Course: This is an 83-year-old very pleasant female patient who came into office with compl aints of bilateral leg swelling and redness of the skin involving both lower extremities. Please see dictated H and P for more information. After patient was evaluated at office, she was admitted to [facility] for further evaluation and management of this problem. The patient was diagnosed as havi ng cellulitis of both lower extremities and was started on IV antibiotic which was Zosyn and she was also diagnosed as having congestive heart failure and was started on IV Lasix. The patient responded very well to antibiotics as well as IV Lasix, but over the weekend after initial improvement in her leg swelling, she started to have worsening of leg swelling that was noted yesterday so we did give h er extra dose of Lasix yesterday. This morning, her leg swelling has shown improvement compared to y . The patient has CMML, which was diagnosed recently and her oncologist is in [place] and she saw oncologist day before admission to our hospital and oncologist recommended option of either chemotherapy or blood transfusion on as-needed basis; and at her age and her current blood work and o verall condition, her prognosis is very poor and I did discuss with the patient and her family regard ing the option of hospice care and the patient and family are definitely agreeable for hospice care. Her performance status is very poor and overall prognosis is very poor. In my opinion, her life exp ectancy is less than 6 months, probably less than 1-2 months if disease continues to progress natural ly the way I am concerned about and all these details were discussed with the patient and her family over last few days, and the patient and family has chosen [facility] hospice agency to provide hospice care at home and today she was discharged to go home in stable condition with following discharge medicati ons and instructions. Physical Examination: HEENT: Unremarkable. Lungs: Clear to auscultation. No wheezing. No rales. Heart: Sounds normal. Abdomen: Soft. Bowel sounds normal. No guarding, rigidity, tenderness, distention. Extremity: Bilateral grade 1 edema. Skin: Presence of redness involving both lower extremities, better than before. Final Diagnoses: 1.Cellulitis, bilateral lower extremities. 2.Congestive heart failure, acute with chronic systolic heart failure. 3.Chronic myelomonocytic leukemia. 4.Thrombocytopenia. 5.Anemia. 6.Hypertension. 7.Hyperlipidemia. 8.Hypothyroidism. 9.Osteopenia, multiple sites. 10.Diverticulosis. 11.Impaired fasting glucose. 12.Peripheral vascular disease. 13.Right-sided carotid artery stenosis. 14.Generalized weakness. 15.Debility. 16.Osteoarthritis, multiple sites. 17.Chronic kidney disease, stage 3B. Laboratory Data: Echocardiogram done during this hospitalization shows ejection fraction 45% to 50%, mild aortic regurgitation, tricuspid regurgitation, and mitral regurgitation. Labs upon admission w astrid count 30.90, hemoglobin 7.3, platelets 58. On 09/09/2023, white count 25.8, hemoglobin 6.4, isidra telets 41, and the patient received 2 units of PRBC blood transfusion and her hemoglobin came up to 1 0.3 after blood transfusion. Last labs from yesterday white count 33.9, hemoglobin 10.1, platelets 4 0. Last chemistry from yesterday, sodium 142, potassium 3.7, chloride 113, bicarb 22, BUN 27, creati nine 1.26, glucose 83. Discharge Medications And Instructions: 1.Continue metoprolol and levothyroxine as you were taking before. 2.Stop memantine and ezetimibe. 3.Furosemide 40 mg daily and potassium chloride 10 mEq daily. Prescription was sent for 1 month sup ply on both of this medication and future refills will be obtained from hospice agency. 4.Augmentin 875 mg 2 times a day for 1 week. 5.Patient to be admitted to [facility] hospice care upon discharge and hospice medical care evaluation specialist to take nelsy maurer her care. FIDELIA/MODL Voice ID: [id number] Report ID: [id number]
== END 2023-09-12 12:18 | disposition hospice, home (50) | DRG 602 ==
LOC: 2ND 18:52
PROVIDERS: ADMIT Internal Medicine; ATTEND Internal Medicine
DX: L03.115 Cellulitis of right lower limb (principal); I50.23 Acute on chronic systolic (congestive) heart failure; D61.818 Other pancytopenia; C93.10 Chronic myelomonocytic leukemia not having achieved remission; I13.0 Hypertensive heart and chronic kidney disease with heart failure and stage 1 through stage 4 chronic kidney disease, or unspecified chronic kidney disease; I73.9 Peripheral vascular disease, unspecified; F03.90 Unspecified dementia, unspecified severity, without behavioral disturbance, psychotic disturbance, mood disturbance, and anxiety; N18.32 Chronic kidney disease, stage 3b; D69.6 Thrombocytopenia, unspecified; E03.9 Hypothyroidism, unspecified; I65.21 Occlusion and stenosis of right carotid artery; M15.9 Polyosteoarthritis, unspecified; E78.5 Hyperlipidemia, unspecified; K57.90 Diverticulosis of intestine, part unspecified, without perforation or abscess without bleeding; L03.116 Cellulitis of left lower limb; M85.80 Other specified disorders of bone density and structure, unspecified site; R73.01 Impaired fasting glucose; R53.1 Weakness; Z51.5 Encounter for palliative care
CPT/HCPCS: 36415; 71045; 80048; 80053; 83735; 83880; 84132; 84439; 84443; 85014; 85018; 85025; 86850; 86900; 86901; 86920; 93306; 97116; 97161; J1940; J2543; J3475; J7050; P9016